=== PATIENT | female | born 1945 | race Caucasian/White ===

== ENCOUNTER 2016-09-30 07:52 | Inpatient (IN) | payer OTHER, MEDICARE ==
--- NOTE | 2016-09-27 10:18 | MH ---
cc: CAROLE SANTA MD, ARJUN D. MD DATE OF ADMISSION: 09/30/[address]-guided right upper lobe lung mass biopsy. HISTORY OF PRESENT ILLNESS Ms. Valle is a pleasant 71-year-old female who was found to have a right upper lobe lung density. She had a biopsy done at [facility] which showed lymphoid aggregate. The patient had a repeat CAT scan and a PET scan done on 09/07/2016 which shows intense increased activity in the right upper lobe mass characteristic of malignancy. She also has equivocal adenopathy in the right hilum. No distant metastatic disease. She has no fever or chills. No chest pain. No cough or sputum production. PAST MEDICAL HISTORY 1. Hypertension. 2. Cataract surgery. 3. Strabismus surgery. 4. Tonsillectomy. MEDICATIONS 1. Atenolol. 2. Lisinopril. 3. Lipitor. 4. Multivitamin. ALLERGIES She is allergic to PENICILLIN. SOCIAL HISTORY She has a 50 year history of smoking a half pack to one pack a day, which she recently quit. She drinks socially. 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 She is , lives alone. FAMILY HISTORY She has two adopted children. She has one brother with emphysema. Mother with emphysema. REVIEW OF SYSTEMS She has lost some weight. No hemoptysis. No DVT or pulmonary embolism. PHYSICAL EXAMINATION GENERAL: An elderly female not in acute distress. VITAL SIGNS: Blood pressure 130/72, heart rate 79, respirations 16 Oxygen saturation 96%. HEENT: Unremarkable. NECK: Supple. JVP not raised. CHEST: Equal bilaterally. No rhonchi. CARDIOVASCULAR: S1, S2 normal. ABDOMEN: Flat. EXTREMITIES: No edema. IMPRESSION 1. Right upper lobe 2.5 cm spiculated density with intense hypermetabolic activity seen on PET scan concerning for malignancy. 2. COPD. 3. Hypertension. 4. Hyperlipidemia. PLAN I discussed with the patient and her daughter she will need CT-guided lung biopsy. I explained the procedure and the complications including complication of anesthesia, pneumothorax requiring chest tube, bleeding complication, injury to the blood vessels, lungs and nerves, arrhythmia, hypoxia and nondiagnostic biopsy. She understood and wanted to proceed. She will be scheduled for CT-guided biopsy at [facility] and it will be sent for pathology, routine culture, AFB and fungal cultures. Follow-up in 3 weeks. MD ROBERT Braun/BT /11:01 PM /10:17 AM VIRAJ
[2016-09-30] VITALS (14 sets, daily range): BP systolic 105–171; BP diastolic 57–95; PULSE 56–70; RESP 18–20; TEMP 97.9–98.1; O2SAT 93–100
[~2016-09-30] VITALS: Ht 160 cm; Wt 51.0 kg
[~2016-09-30 07:52] MED LIST: ALEN1TAB48 PO; ATEN25TA PO; ATOR40TA16 PO; CALCTAB19 PO; LISI-519 PO; MULT-135 PO; MULTTAB26
[2016-09-30] MEDS ORDERED: SODIUM CHLOR 0.9% 1000 ML IV SCH (08:45)
[2016-09-30 09:04] LABS: PROTHROMBIN TIME - PATIENT 10.7 SEC (9.8-11.6)
[2016-09-30] MEDS ORDERED: LIDOCAINE 1%/EPINEPHrine 1:100,000 SOLN 20 ML VIAL ONE (09:10)
[2016-09-30] MEDS ORDERED: MIDAZOLAM HCL 5 MG/5 ML VIAL ONE (09:50)
[2016-09-30] MEDS ORDERED: fentaNYL CITRATE 250 MCG/5 ML AMP ONE (09:50)
--- NOTE | 2016-09-30 11:51 | RADRPT ---
EXAM DATE/TIME: 09/30/2016 10:04 [facility] COMPARISON: CT NEEDLE BIOPSY LUNG, RIGHT, July 08, 2016, 10:23. INDICATIONS : Right upper lung mass. SEDATION TIME: 30 minutes BIOPSY SITE: Right upper lung. MEDICATION(S): 1.) 2 mg midazolam (Versed) IV 2.) 100 mcg fentanyl (Sublimaze) IV DEVICE(S): 1.) 20 gauge Temno core biopsy needle 2.) 18 gauge Winter blunt needle MEDICAL HISTORY : Hypertension. Chronic obstructive pulmonary disease. SURGICAL HISTORY : Tonsillectomy. ENCOUNTER: Initial ACUITY: 1 day PAIN SCORE: 0/10 LOCATION: Left chest A total of four core specimen(s) were obtained and sent to the laboratory for pathologic evaluation. PROCEDURE: 1. CT guided lung biopsy. 2. Conscious sedation with continuous EKG and oximetry monitoring. 3. EKG and oximetry remained stable throughout the procedure. Prior to the procedure informed consent was obtained. Any appropriate prior imaging studies were rev iewed. The site was prepped in a sterile fashion. Full sterile technique was used, including cap, mask, martha rile gloves and gown and a large sterile sheet. Hand hygiene and 2% chlorhexidine and/or betadine/al cohol prep was utilized per protocol for cutaneous antisepsis. The skin and subcutaneous tissues wer e infiltrated with local anesthetic solution. With CT guidance the right upper lobe spiculated nodule was localized. Biopsy was performed using the prescribed needle as above. Adequate hemostasis was obtained with compression at the puncture site. Follow-up CT scan reveals no pneumothorax. There is intrapulmonary hemorrhage posterior to the nodule . Conscious sedation was performed with the prescribed dosages and duration as above. The patient arturo ated the procedure well and there were no complications. EKG and oximetry remained stable throughout the procedure. The patient was sent to Radiology Outpatient Unit in stable condition. CONCLUSION: Uncomplicated CT guided biopsy of the right upper lobe pulmonary nodule. Chava Hoang MD on September 30, 2016 at 11:48 Board Certified Radiologist. This report was verified electronically.
--- NOTE | 2016-09-30 12:00 | RADRPT ---
EXAM DATE/TIME: 09/30/2016 11:29 [facility] COMPARISON: CHEST EXPIRATION ONLY, July 08, 2016, 13:57. INDICATIONS : S/p lung bx MEDICAL HISTORY : Emphysema. SURGICAL HISTORY : biopsy 07/21 ENCOUNTER: Initial ACUITY: 1 day PAIN SCORE: 0/10 LOCATION: Bilateral chest FINDINGS: There is a questionable tiny right pneumothorax following right upper lobe lung nodule biopsy. The ri ght upper lobe nodule remains visualized. No other acute finding is seen. CONCLUSION: Questionable tiny right apical pneumothorax. Followup chest x-ray will be performed. Patient should r emain n.p.o. until the next chest x-ray was obtained. Chava Hoang MD on September 30, 2016 at 11:57 Board Certified Radiologist. This report was verified electronically.
--- NOTE | 2016-09-30 14:26 | RADRPT ---
EXAM DATE/TIME: 09/30/2016 13:15 [facility] COMPARISON: CHEST EXPIRATION ONLY, September 30, 2016, 11:29. INDICATIONS : Post needle biopsy right lung, evaluate for pneumothorax MEDICAL HISTORY : Chronic obstructive pulmonary disease. right upper lobe mass SURGICAL HISTORY : Tonsillectomy. ENCOUNTER: Subsequent ACUITY: 1 day PAIN SCORE: 0/10 LOCATION: Right chest FINDINGS: AP portable upright view of the chest in expiration demonstrates a moderate-sized right-sided pneumot horax. The imaged portion of the lung again demonstrates a spiculated mass within the right upper jose armando g otherwise stable emphysematous change. Heart size is normal. CONCLUSION: Moderate-sized right apical pneumothorax. Spiculated mass within the right upper lung consistent with carcinoma. Rosaura Parnell MD on September 30, 2016 at 14:22 Board Certified Radiologist. This report was verified electronically.
--- NOTE | 2016-09-30 15:24 | HHI.HP ---
HPI Service [facility] Hospitalists Primary Care Physician Stephan Wilson MD Admission Diagnosis Chief Complaint: lung mass Travel History International Travel<30 Days: No Contact w/Intl Traveler <30 Da: No Traveled to Known Affected Are: No History of Present Illness Pt is 71 yr with 50 yrs 1/2-1 ppd tobacco and rul 2.5 cm spiculated mass. 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 that bx showed lymhoid aggregate. pt admitted at that time for Ptx and chest tube. her pet scan was positive and pt sent back in for repeat lung mass bx. She has another Ptx and getting a chest tube.. Review of Systems Other weight loss right chest mass s/p bx and CT Past Family Social History Past Medical History htn hyperlipidemia 2.5cm right lung spic. mass cataract surgery Reported Medications Reported Meds & Active Scripts Active Reported Lisinopril 5 Mg Tab 5 Mg PO BID Alendronate (Alendronate Sodium) 70 Mg Tab 70 Mg PO Q7D Atorvastatin (Atorvastatin Calcium) 40 Mg Tab 40 Mg PO HS Multi Vitamin (Multiple Vitamin) 1 Tab Tab 1 Tab PO DAILY Calcium 600+D (Calcium Carbonate-Vitamin D) 600-200 Mg-Unit Tab 2 Tab PO BID Atenolol 25 Mg Tab 25 Mg PO DAILY Allergies: Coded Allergies: Penicillin (Verified Allergy, Severe, Hives, 09/30/16) Family History nc Social History social etoh 50yr 1/2-1ppd tob Physical Exam Vital Signs Vital Signs Date Time Temp Pulse Resp B/P Pulse Ox O2 Delivery O2 Flow Rate FiO2 09/30/16 14:51 63 18 135/68 95 09/30/16 14:00 70 18 132/65 97 09/30/16 13:00 63 18 107/61 93 09/30/16 12:30 62 18 108/57 94 09/30/16 12:00 60 18 115/65 94 09/30/16 11:30 59 18 108/58 94 09/30/16 11:00 61 18 105/59 97 09/30/16 10:45 97.9 56 18 114/60 96 09/30/16 08:19 Room Air 09/30/16 08:15 97.9 65 20 160/83 100 Physical Exam GENERAL: This is a well-nourished, well-developed patient, in no apparent distress. SKIN: No rashes, ecchymoses or lesions. Cool and dry. HEAD: Atraumatic. Normocephalic. No temporal or scalp tenderness. EYES: Pupils equal round and reactive. Extraocular motions intact. No scleral icterus. No injection or drainage. ENT: Nose without bleeding, purulent drainage or septal hematoma. Throat without erythema, tonsillar hypertrophy or exudate. Uvula midline. Airway patent. NECK: Trachea midline. No JVD or lymphadenopathy. Supple, nontender, no meningeal signs. CARDIOVASCULAR: Regular rate and rhythm without murmurs, gallops, or rubs. RESPIRATORY: Clear to auscultation. Breath sounds equal bilaterally. No wheezes , rales, or rhonchi. GASTROINTESTINAL: Abdomen soft, non-tender, nondistended. No hepato-splenomegaly , or palpable masses. No guarding. MUSCULOSKELETAL: Extremities without clubbing, cyanosis, or edema. No joint tenderness, effusion, or edema noted. No calf tenderness. Negative Homans sign bilaterally. NEUROLOGICAL: Awake and alert. Cranial nerves II through XII intact. Motor and sensory grossly within normal limits. Five out of 5 muscle strength in all muscle groups. Normal speech. Laboratory Laboratory Tests Test 09/30/16 08:30 Prothrombin Time 10.7 Prothromb Time International 1.0 Ratio Assessment and Plan Problem List: (1) Lung mass Status: Acute Plan: Pt admitted on 07/08 for right lung mass bx. 2.5cm spiculated and ptx/ chest tube That bx showed lymphoid aggregate. subsequent Pet scan positive repeat mass bx today with right ptx and chest tube insertion. she is smoker chest tube per IR pulmonary following dvt prophylaxis PT. d/c once chest tube removed. resume home meds. (2) Pneumothorax Status: Acute Plan: see above (3) Hypertension Status: Chronic Plan: home meds as tolerated (4) Tobacco abuse Status: Chronic Physician Certification 2 Midnight Certification Type: Admission for Inpatient Services Order for Inpatient Services 2 The services are ordered in accordance with Medicare regulations or non- Medicare payer requirements, as applicable. In the case of services not specified as inpatient-only, they are appropriately provided as inpatient services in accordance with the 2-midnight benchmark. Estimated LOS (days): 2 2 days is the estimated time the patient will need to remain in the hospital, assuming treatment plan goals are met and no additional complications. Post-Hospital Plan: Home Mauricio Garcia MD Sep 30, 2016 15:24 Mauricio Garcia MD Sep 30, 2016 15:24
[2016-09-30] MEDS ORDERED: MIDAZOLAM HCL 2 MG/2 ML VIAL ONE (15:26)
--- NOTE | 2016-09-30 16:25 | PD.RAD ---
Post Procedure Progress Note Pre Procedure Diagnosis: (1) Lung mass (2) Pneumothorax Post Procedure Diagnosis: (1) Lung mass (2) Pneumothorax Procedure Date: Sep 30, 2016 Supervising Radiologist: Santhosh Kendall Proceduralist/Assist: Karthik Coulter RT(R), RT Candace(R)() Anesthesia: Local, Analgesia, Conscious Sedation Plan of Activity Patient to Unit: ROPU Patient Condition: Good See PACS Report for procedural detail/treatment Drainage Procedure Procedure 1 Imaging Guidance: Fluoroscopy Side: Right Procedure Type: Chest Tube Non-Tunneled Procedure: Placement Khmer: 10 Drainage: Pleurovac (40 cm) Santhosh Kendall MD Sep 30, 2016 16:24
[2016-09-30] MEDS: oxyCODONE/ACETAMINOPHEN 5 MG/325 MG TAB PO PRN ×2 (17:01→21:15)
--- NOTE | 2016-09-30 17:04 | RADRPT ---
EXAM DATE/TIME: 09/30/2016 16:21 [facility] COMPARISON: CHEST EXPIRATION ONLY, September 30, 2016, 13:15. INDICATIONS : Evaluate lungs for pneumothorax. MEDICAL HISTORY : Lung Mass SURGICAL HISTORY : Chest Tube ENCOUNTER: Initial ACUITY: 1 day PAIN SCORE: 6/10 LOCATION: chest FINDINGS: There is a new right-sided chest tube the tube was in excellent position. There is complete reinflati on of the right lung. The patient's known right lung mass is again identified. The heart is mildly enlarged. There are chronic interstitial changes within the pulmonary parenchyma and COPD. CONCLUSION: 1. Right chest tube in good position. Complete resolution of the pneumothorax. Gallo Rangel MD on September 30, 2016 at 17:02 Board Certified Radiologist. This report was verified electronically.
[2016-09-30] MEDS ORDERED: ATORVASTATIN 40 MG TAB PO SCH (21:00)
[2016-09-30] MEDS: CALCIUM/VITAMIN D 250 MG/125 U TAB PO SCH (21:05)
[2016-09-30] MEDS: LISINOPRIL 5 MG TAB PO SCH (21:06)
[2016-10-01] VITALS (7 sets, daily range): BP systolic 95–124; BP diastolic 50–64; PULSE 52–68; RESP 12–20; TEMP 97.5–97.9; O2SAT 91–95
--- NOTE | 2016-10-01 07:09 | RADRPT ---
EXAM DATE/TIME: 10/01/2016 06:36 [facility] COMPARISON: CHEST EXPIRATION ONLY, September 30, 2016, 16:21. INDICATIONS : Evaluate pneumothorax and chest tube, no pain, no shortness of breath at this time MEDICAL HISTORY : lung mass, chest tube SURGICAL HISTORY : None. ENCOUNTER: Subsequent ACUITY: 2 days PAIN SCORE: 1/10 LOCATION: Bilateral chest FINDINGS: Portable AP upright expiratory view of the chest demonstrates no pneumothorax. Right chest tube remai ns present. The recently biopsied nodule in the right upper lobe remains visualized. There otherwise has been no significant change. CONCLUSION: No pneumothorax is visualized. Chava Hoang MD on October 01, 2016 at 7:07 Board Certified Radiologist. This report was verified electronically.
[2016-10-01] MEDS: oxyCODONE/ACETAMINOPHEN 5 MG/325 MG TAB PO PRN (07:12)
[2016-10-01] MEDS: LISINOPRIL 5 MG TAB PO SCH (08:45)
[2016-10-01] MEDS: CALCIUM/VITAMIN D 250 MG/125 U TAB PO SCH (08:46)
[2016-10-01] MEDS ORDERED: ATENOLOL 25 MG TAB PO SCH (09:00)
[2016-10-01] MEDS ORDERED: MULTIVITAMIN TAB PO SCH (09:00)
--- NOTE | 2016-10-01 10:30 | HHI.PR ---
Subjective Remarks no sob. pain controlled Objective Vitals heart reg lung cta. right base diminished bs ext right ct 40cm/h20 ext no edema Vital Signs Date Time Temp Pulse Resp B/P Pulse Ox O2 Delivery O2 Flow Rate FiO2 10/01/16 08:00 97.5 56 12 124/64 93 10/01/16 04:00 97.9 52 20 100/51 94 10/01/16 00:00 97.9 53 20 95/50 93 09/30/16 23:43 16 09/30/16 21:15 Nasal Cannula 09/30/16 20:00 98.0 60 20 126/71 93 09/30/16 17:40 67 20 138/67 95 09/30/16 17:10 63 20 141/64 94 09/30/16 16:40 67 20 171/72 94 09/30/16 16:25 98.1 56 20 142/95 94 09/30/16 14:51 63 18 135/68 95 09/30/16 14:00 70 18 132/65 97 09/30/16 13:00 63 18 107/61 93 09/30/16 12:30 62 18 108/57 94 09/30/16 12:00 60 18 115/65 94 09/30/16 11:30 59 18 108/58 94 09/30/16 11:00 61 18 105/59 97 09/30/16 10:45 97.9 56 18 114/60 96 09/30/16 09/30/16 10/01/16 15:00 23:00 07:00 Intake Total 360 ml 0 ml Output Total 0 ml 300 ml Balance 360 ml -300 ml Intake Oral 360 ml 0 ml IV Total 0 ml 0 ml Output Urine Total 300 ml Chest Tube Drainage Total 0 ml 0 ml # Voids 1 A/P Problem List: (1) Lung mass Status: Acute Plan: Pt admitted on 07/08 for right lung mass bx. 2.5cm spiculated and ptx/ chest tube That bx showed lymphoid aggregate. subsequent Pet scan positive repeat mass bx today with right ptx and chest tube insertion. she is smoker chest tube per IR. place to seal and remove as able today by IR d/c home later today if able to get ct out dvt prophylaxis PT. (2) Pneumothorax Status: Acute Plan: see above (3) Hypertension Status: Chronic Plan: home meds as tolerated (4) Tobacco abuse Status: Chronic Mauricio Garcia MD Oct 01, 2016 10:30
--- NOTE | 2016-10-01 16:25 | HHI.DCPOC ---
Discharge Care Plan Diagnosis: (1) Pneumothorax (2) Lung mass Goals to Promote Your Health * To prevent worsening of your condition and complications * To maintain your health at the optimal level Directions to Meet Your Goals Take your medications as prescribed Follow your dietary instruction Follow activity as directed Keep your appointments as scheduled Take your immunizations and boosters as scheduled If your symptoms worsen call your PCP, if no PCP go to Urgent Care Center or Emergency Room Smoking is Dangerous to Your Health. Avoid second hand smoke Call the 24-hour hour crisis hotline for domestic abuse at Mauricio Garcia MD Oct 01, 2016 16:25
--- NOTE | 2016-10-01 17:24 | RADRPT ---
EXAM DATE/TIME: 10/01/2016 16:41 [facility] COMPARISON: CHEST EXPIRATION ONLY, October 01, 2016, 15:21. INDICATIONS : Post chest tube removal. MEDICAL HISTORY : None. SURGICAL HISTORY : None. ENCOUNTER: Initial ACUITY: 1 day PAIN SCORE: 0/10 LOCATION: Bilateral chest FINDINGS: The right-sided chest tube has been removed. No significant pneumothorax is seen. The patient's right upper lung mass is again identified. There are diffuse chronic interstitial changes. CONCLUSION: 1. No significant pneumothorax following removal of the right chest tube. Gallo Rangel MD on October 01, 2016 at 17:22 Board Certified Radiologist. This report was verified electronically.
--- NOTE | 2016-10-01 17:24 | RADRPT ---
EXAM DATE/TIME: 10/01/2016 15:21 [facility] COMPARISON: CHEST EXPIRATION ONLY, October 01, 2016, 6:36. INDICATIONS : Evaluate for pneumothorax. Post chest tube placement on 09/30/16. MEDICAL HISTORY : Lung mass. Chest tube. SURGICAL HISTORY : None. ENCOUNTER: Subsequent ACUITY: 1 day PAIN SCORE: 0/10 LOCATION: chest FINDINGS: There is a right-sided chest tube in place. There is no pneumothorax. The patient's right apical lung mass is again identified. There are diffuse chronic interstitial changes. The heart is normal in siz e. The osseous structures are intact. CONCLUSION: No pneumothorax identified. Right chest tube in good position. Gallo Rangel MD on October 01, 2016 at 17:23 Board Certified Radiologist. This report was verified electronically.
--- NOTE | 2016-10-01 17:44 | RADRPT ---
EXAM DATE/TIME: 10/01/2016 00:00 [facility] COMPARISON: No previous studies available for comparison. INDICATIONS : DEVICE(S): 1.) PROCEDURE : Chest tube removal. Using aseptic technique the previously placed chest tube was easily removed in one piece and Vaseline gauze and sterile dressing was applied. Chest radiograph is to be obtained. CONCLUSION: Uncomplicated chest tube removal. Reza Dumont Jr., MD on October 01, 2016 at 17:42 Board Certified Radiologist. This report was verified electronically.
--- NOTE | 2016-10-05 14:59 | RADRPT ---
EXAM DATE/TIME: 09/30/2016 15:37 [facility] COMPARISON: CHEST TUBE PLACEMENT, RIGHT, July 08, 2016, 14:41. INDICATIONS : Patient presents with right side pneumothorax in need of chest tube placement. MEDICAL HISTORY : HTN COPD SURGICAL HISTORY : Cataract sx Tonsils ENCOUNTER: Initial ACUITY: 1 day PAIN SCORE: 0/10 LOCATION: N/A FLUORO TIME: 1.2 minutes SEDATION TIME: 15 minutes MEDICATION(S): 1.) 1.5 mg IV 2.) 1 mcg IV DEVICE(S): 1.) 10 [place] non-locking catheter 30cm thania PROCEDURE : 1. Fluoroscopically guided chest tube placement. 2. Conscious sedation with continuous EKG and oximetry monitoring. The risks, benefits and alternatives to the procedure were explained and verbal and written consent w as obtained. The site was prepped in sterile fashion. Full sterile technique was used, including ca p, mask, sterile gloves and gown and a large sterile sheet. Hand hygiene and 2% chlorhexidine and/or betadine/alcohol prep was utilized per protocol for cutaneous antisepsis. The skin and subcutaneous tissues were infiltrated with local anesthetic solution. With fluoroscopic guidance the chest was punctured between the first and second interspace and the pr escribed catheter was placed in the lung apex. Wall suction was applied. Post procedure images demon strate satisfactory position of the tube. The catheter was sutured in place and a Percu-Stay was david lied. Conscious sedation was performed with the prescribed dosages and duration as above. The patient arturo ated the procedure well and there were no complications. EKG and oximetry remained stable throughout the procedure. The patient was sent to post anesthesia recovery in stable condition. CONCLUSION: Uncomplicated chest tube placement as above. Santhosh Kendall MD on October 05, 2016 at 14:56 Board Certified Radiologist. This report was verified electronically.
== END 2016-10-01 18:28 | disposition home or self-care (01) | DRG 181 ==
LOC: HRAD 07:52 → HRIP 07:57 → EDSTATUS 08:00 → N07B 15:26 → HRAD 19:01
PROVIDERS: ADMIT Specialist; ATTEND Specialist
PROC: 0W9930Z Drainage of Right Pleural Cavity with Drainage Device, Percutaneous Approach (ICD-10-PCS; principal; 2016-09-30)
PROC: 0WP9X0Z Removal of Drainage Device from Right Pleural Cavity, External Approach (ICD-10-PCS; 2016-09-30)
DX: C34.11 Malignant neoplasm of upper lobe, right bronchus or lung (principal); J95.811 Postprocedural pneumothorax; J44.9 Chronic obstructive pulmonary disease, unspecified; I10 Essential (primary) hypertension; E78.5 Hyperlipidemia, unspecified; F17.200 Nicotine dependence, unspecified, uncomplicated
CPT/HCPCS: 32405; 32557; 71010; 77012; 85610; 88305; 99152; C1729; C1769; J2250; J3010; J7030

== ENCOUNTER 2016-10-25 14:24 | Inpatient (IN) | payer OTHER, MEDICARE ==
[~2016-10-25] VITALS: Ht 160 cm; Wt 68.5 kg
[~2016-10-25 14:24] MED LIST changes: -MULTTAB26
[2016-10-26] MEDS ORDERED: AMLO5TAB2 PO (11:30)
[2016-10-26] MEDS ORDERED: NICO2LOZ BUCCAL (11:30)
[2016-10-26] MEDS ORDERED: ALPR0.5T3 PO (11:30)
[2016-11-02] VITALS (8 sets, daily range): BP systolic 83–119; BP diastolic 46–69; PULSE 68–87; RESP 14–20; TEMP 97.4–97.8; O2SAT 94–99
[2016-11-02] MEDS ORDERED: METOPROLOL TARTRATE 25 MG TAB PO PRN (06:00)
[2016-11-02] MEDS ORDERED: SODIUM CHLORID 0.9% 500 ML IV SCH (06:00)
[2016-11-02] MEDS ORDERED: INSULIN HUMAN REGULAR 1,000 UNITS/10 ML VIAL SQ PRN (06:00)
[2016-11-02] MEDS ORDERED: BACT400T PO (06:24)
[2016-11-02] MEDS: LACTATED RINGER'S 1000 ML IV SCH (06:28)
[2016-11-02 06:57] LABS: BLOOD, URINE NEG (NEG); COMMENT (UR) CULTURE INDICATED; CULTURE IF INDICATED CULTURE INDICATED; GLUCOSE,URINE NEG (NEG); HYALINE CAST, URINE 4 /lpf (RARE); KETONE, URINE NEG (NEG); MUCUS URINE FEW /lpf (OCC); NITRITE,URINE NEG (NEG); SQUAMOUS EPITHELIAL CELL URINE 1 /hpf (0-5); URINE COLOR YELLOW (YELLW/STRAW)
[2016-11-02] MEDS ORDERED: BUPIVACAINE LIPOSO PF 1.3% INJ 20 ML, DEXAMETHASONE INJ 4 MG in SODIUM CHLORIDE 0.9% IN... PERIART SCH (07:15)
[2016-11-02] MEDS ORDERED: DEXAMETHASONE SOD PHOS 4 MG/ML VIAL ONE (07:15)
[2016-11-02] MEDS ORDERED: SODIUM CHLOR 0.9% 250 ML INJ 250 ML ONE (07:34)
[2016-11-02] MEDS ORDERED: VANCOMYCIN HCL 1000 MG VIAL ONE (07:34)
[2016-11-02] MEDS ORDERED: ePHEDrine/NS 25 MG/5 ML SYR IV ONE (12:00)
[2016-11-02] MEDS ORDERED: PHENYLEPH/NS 1000 MCG/10 ML SYR IV ONE (12:09)
[2016-11-02] MEDS ORDERED: LACTATED RINGER'S 1000 ML INJ 1,000 ML IV ONE (12:09)
[2016-11-02] MEDS ORDERED: NORMOSOL R INJ 1,000 ML IV ONE (12:09)
[2016-11-02] MEDS ORDERED: NEOSTIGMINE 3 MG/3 ML SYR IV ONE (12:09)
[2016-11-02] MEDS ORDERED: PROPOFOL 200 MG/20 ML AMP IV ONE (12:09)
[2016-11-02] MEDS ORDERED: ONDANSETRON HCL 4 MG/2 ML VIAL IV PUSH ONE (12:09)
[2016-11-02] MEDS ORDERED: SODIUM CHLORID 0.9% 500 ML INJ 500 ML IV ONE (12:09)
[2016-11-02] MEDS ORDERED: fentaNYL CITRATE 250 MCG/5 ML AMP ONE ×2 (13:01→14:11)
[2016-11-02] MEDS ORDERED: Post-op Orders (for Pharmacy) MISC OTHER ONE (13:45)
[2016-11-02] MEDS ORDERED: ACETAMINOPHEN 325 MG TAB PO PRN (13:45)
[2016-11-02] MEDS ORDERED: ONDANSETRON HCL 4 MG/2 ML VIAL IV PUSH PRN (13:45)
[2016-11-02] MEDS ORDERED: MAGNESIUM HYDROXIDE SUSP 30 ML CUP PO PRN (13:45)
[2016-11-02] MEDS ORDERED: RESP: ALBUTEROL 2.5 MG/3 ML NEB (PRN) NEB (13:45)
[2016-11-02] MEDS ORDERED: NALOXONE HCL 0.4 MG/ML AMP IV PRN (13:45)
[2016-11-02] MEDS ORDERED: MORPHINE SULFATE 30 MG/30 ML PCA IV SCH (13:45)
[2016-11-02] MEDS ORDERED: diphenhydrAMINE HCL 50 MG/ML VIAL IV PRN (13:45)
[2016-11-02] MEDS ORDERED: ACETAMINOPHEN/HYDROcodone 325 MG/5 MG TAB PO PRN (13:45)
[2016-11-02] MEDS ORDERED: DO NOT ADM ANY ANTICOAGULANT DRUGS XX PRN (14:00)
[2016-11-02] MEDS: PCA - TOTAL MG MORPHINE DELIVERED PER SHIFT SCH ×2 (14:00→22:00)
--- NOTE | 2016-11-02 14:09 | PD.OP ---
cc: Tobi Petersen MD; Stephan Wilson MD; Deejay Jaramillo MD; Vanessa Cottrell MD Operative Report Date of Surgery: Nov 02, 2016 Preoperative Diagnosis: Postoperative Diagnosis: Procedure: 1. Robotic Right Upper Lobectomy 2. Mediastinal Lymph Node Dissection. 3. Intercostal Nerve Block . Surgeon: Vanessa Cottrell Mechanical Drawing Teacher(s): Apolinar Guadalupe Operation and Findings: PREOPERATIVE DIAGNOSIS 1. Right Upper Lobe Lung Cancer 2. COPD POSTOPERATIVE DIAGNOSIS same PROCEDURES 1. Robotic Right Upper Lobectomy 2. Mediastinal Lymph Node Dissection. 3. Intercostal Nerve Block SURGEON Vanessa Cottrell MD COOK CHILL TECHNICIAN HARSHAD Mcfadden RNFA ANESTHESIA General endotracheal. METER MAINTENANCE PERSON TAINA Harris MD OPERATIVE TIME Please see record. COMPLICATIONS None. INDICATION FOR PROCEDURE The patient is a 71 yo lady with lung cancer. DESCRIPTION OF PROCEDURE The patient was brought to the operating suite and placed in supine position. Following satisfactory induction of general endotracheal anesthesia, she was placed in the left lateral decubitus position. The right chest was then prepped and draped in the usual sterile fashion. Under direct vision, camera was introduced in the 8th ICS and insufflation was begun into the chest . Instrument arm 1, 2, and 3 were placed. Lesion was identified. The inferior pulmonary ligament was divided. The pulmonary arterial supply to the right upper lobe was identified, dissected free and divided as was the pulmonary venous supply. The bronchus was then dissected free, clamped and the remaining lung was insufflated without any difficulty. The fissure was incomplete and was completed with a ARIE stapler. Lymph node dissections of level 4, 7, 10 & 11 were performed along with the course of this removal. Some of these were retained with the specimen. Specimen was bagged and removed from the chest. A 24 -[place]ore[place] Tyrese drain was placed. Intercostal nerve block was performed at the level of the incision and 3 rib spaces above and below using Exparel with Decadron solution. Her lung parenchyma was very friable and an area of air-leak at the hilum was repaired with a walter-strip re-enforced stapler with resultant stop in the leak. Wounds were closed with 2-0, 3-0, and 4-0 Monocryl. The patient tolerated the procedure well and postoperatively went to recovery in stable condition. Vanessa Cottrell MD Nov 02, 2016 14:09
[2016-11-02] MEDS ORDERED: MIDAZOLAM HCL 2 MG/2 ML VIAL ONE (14:11)
--- NOTE | 2016-11-02 14:52 | RADRPT ---
EXAM DATE/TIME: 11/02/2016 14:15 [facility] COMPARISON: No previous studies available for comparison. INDICATIONS : Thoracotomy. MEDICAL HISTORY : Chronic obstructive pulmonary disease. right upper lobe mass SURGICAL HISTORY : Tonsillectomy. ENCOUNTER: Subsequent ACUITY: 3 days PAIN SCORE: 8/10 LOCATION: Bilateral chest upper back. FINDINGS: Single view of the chest demonstrates there is a moderate size right pneumothorax present. Chest tub e overlies the right chest. The left lung is clear. Heart and mediastinum are unremarkable. CONCLUSION: Moderate size right pneumothorax with a right chest tube in place. Kvng Borjas MD on November 02, 2016 at 14:47 Board Certified Radiologist. This report was verified electronically.
[2016-11-02] MEDS ORDERED: CALCIUM/VITAMIN D 250 MG/125 U TAB PO SCH (21:00)
[2016-11-02] MEDS: DOCUSATE CALCIUM 240 MG CAP PO SCH (22:13)
[2016-11-02] MEDS: PANTOPRAZOLE SOD 40 MG DELAYED RELEASE TAB PO SCH (22:13)
[2016-11-02] MEDS: ATORVASTATIN 40 MG TAB PO SCH (22:13)
[2016-11-02] MEDS: SODIUM CHLORIDE 0.9% FLUSH 5 ML FLUSH IV FLUSH SCH (22:14)
[2016-11-02] MEDS: VANCOMYCIN INJ 1,000 MG in SODIUM CHLOR 0.9% 250 ML INJ 250 ML IV SCH (22:15)
[2016-11-02] MEDS: KETOROLAC TROMETHAMINE 30 MG/ML (IVP) VIAL IV PUSH SCH (22:28)
[2016-11-02] MEDS: CALCIUM/VITAMIN D 250 MG/125 U TAB PO SCH (22:29)
[2016-11-03] VITALS (27 sets, daily range): BP systolic 86–145; BP diastolic 48–65; PULSE 65–92; RESP 18–20; TEMP 97.4–99.6; O2SAT 92–97
[2016-11-03] MEDS: KETOROLAC TROMETHAMINE 30 MG/ML (IVP) VIAL IV PUSH SCH ×2 (02:15→07:11)
[2016-11-03] MEDS: SODIUM CHLORIDE 0.9% FLUSH 5 ML FLUSH IV FLUSH PRN (02:15)
[2016-11-03] MEDS: ACETAMINOPHEN 1000 MG/100 ML VIAL IV SCH ×2 (02:16→07:10)
[2016-11-03] MEDS: RESP: ALBUTEROL 2.5 MG/3 ML NEB (SCH) NEB ×4 (04:53→21:07)
[2016-11-03] MEDS: PCA - TOTAL MG MORPHINE DELIVERED PER SHIFT SCH (05:58)
[2016-11-03] MEDS: ACETAMINOPHEN/HYDROcodone 325 MG/5 MG TAB PO PRN ×5 (05:58→23:55)
[2016-11-03] MEDS: LACTATED RINGER'S 1000 ML IV SCH (05:59)
[2016-11-03 06:23] LABS: AUTOMATED NEUTROPHIL # 10.8 TH/MM3 (1.8-7.7); BASOPHIL % 0.1 % (0.0-2.0); HEMATOCRIT 28.2 % (35.0-46.0); HEMO FLAGS DIFF FINAL; LYMPH % 7.2 % (9.0-44.0); LYMPHOCYTE # 0.9 TH/MM3 (1.0-4.8); MEAN CELL VOLUME 92.8 FL (80.0-100.0); MEAN CORPUSCULAR HGB CONC 33.4 % (32.0-36.0); MONO % 8.5 % (0.0-8.0); NEUT % 84.2 % (16.0-70.0); PLATELET COUNT 224 TH/MM3 (150-450); RED BLOOD COUNT 3.04 MIL/MM3 (4.00-5.30); WHITE BLOOD COUNT 12.9 TH/MM3 (4.0-11.0)
--- NOTE | 2016-11-03 06:48 | RADRPT ---
EXAM DATE/TIME: 11/03/2016 05:44 [facility] COMPARISON: CHEST SINGLE AP, November 02, 2016, 14:15. INDICATIONS : Follow up thoracotomy. MEDICAL HISTORY : None. SURGICAL HISTORY : None. Thoracotomy ENCOUNTER: Subsequent ACUITY: 2 days PAIN SCORE: 7/10 LOCATION: Bilateral chest FINDINGS: There is a right-sided chest tube with a tiny right pneumothorax. Minimal subsegmental airspace disea se at the bases. No significant effusion. Heart size within normal limits. CONCLUSION: 1. Right side chest tube present with tiny right pneumothorax. Ishan Valero MD on November 03, 2016 at 6:44 Board Certified Radiologist. This report was verified electronically.
[2016-11-03 07:08] LABS: POTASSIUM 4.6 MEQ/L (3.5-5.1)
[2016-11-03] MEDS: SODIUM CHLORIDE 0.9% FLUSH 5 ML FLUSH IV FLUSH SCH ×2 (08:39→20:58)
[2016-11-03] MEDS: CALCIUM/VITAMIN D 250 MG/125 U TAB PO SCH ×2 (08:39→20:58)
[2016-11-03] MEDS: VANCOMYCIN INJ 1,000 MG in SODIUM CHLOR 0.9% 250 ML INJ 250 ML IV SCH (08:40)
--- NOTE | 2016-11-03 10:23 | PD.CAR.PN ---
CVT Progress Note Subjective/Hospital Course: 71/ female new findings of right upper lobe mass, found on routine CT chest , h/ o smoking and 9lb weight loss over past year. 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 HEAD: Normocephalic. EYES: No scleral icterus. No injection or drainage. NECK: Supple, trachea midline. No JVD or lymphadenopathy. CARDIOVASCULAR: Regular rate and rhythm without murmurs, gallops, or rubs. RESPIRATORY: diminished right lower lobe, incisions intact to right post chest wall chest tube to water seal , + air leak , drained 100cc/ drainage Breath sounds equal bilaterally. No accessory muscle use. GASTROINTESTINAL: Abdomen soft, non-tender, nondistended. MUSCULOSKELETAL: No cyanosis, or edema. BACK: Nontender without obvious deformity. No CVA tenderness. Vital Signs Date Time Temp Pulse Resp B/P Pulse Ox O2 Delivery O2 Flow Rate FiO2 11/03/16 09:25 20 11/03/16 09:24 18 11/03/16 08:00 98.0 82 93/55 94 11/03/16 07:35 92 Nasal Cannula 2.00 11/03/16 07:24 72 11/03/16 06:07 71 11/03/16 05:16 71 11/03/16 04:26 68 11/03/16 03:55 65 11/03/16 03:43 99.6 70 20 86/48 94 11/03/16 02:05 74 11/03/16 01:04 69 11/03/16 00:12 75 11/02/16 23:53 68 11/02/16 23:30 97.8 77 19 108/52 96 11/02/16 22:00 76 11/02/16 21:00 79 11/02/16 20:20 16 11/02/16 20:00 87 11/02/16 19:00 97.5 82 83/46 94 11/02/16 19:00 81 11/02/16 17:00 77 2/28/17 17:00 97.4 74 14 99/53 96 11/02/16 16:45 97.5 75 12 100/55 98 11/02/16 16:00 76 12 99/58 98 11/02/16 15:30 77 16 88/62 98 11/02/16 15:15 74 16 100/55 99 11/02/16 15:00 75 16 86/48 99 11/02/16 14:45 73 13 90/54 99 11/02/16 14:30 74 14 92/54 99 11/02/16 14:15 75 12 102/55 99 11/02/16 14:11 14 11/02/16 14:00 85 12 106/53 99 Nasal Cannula 2 11/02/16 13:57 97.4 82 10 98/60 99 Nasal Cannula 2 Labs: Laboratory Tests Test 11/03/16 05:54 White Blood Count 12.9 TH/MM3 (4.0-11.0) Red Blood Count 3.04 MIL/MM3 (4.00-5.30) Hemoglobin 9.4 GM/DL (11.6-15.3) Hematocrit 28.2 % (35.0-46.0) Mean Corpuscular Volume 92.8 FL (80.0-100.0) Mean Corpuscular Hemoglobin 31.0 PG (27.0-34.0) Mean Corpuscular Hemoglobin 33.4 % Concent (32.0-36.0) Red Cell Distribution Width 13.0 % (11.6-17.2) Platelet Count 224 TH/MM3 (150-450) Mean Platelet Volume 8.7 FL (7.0-11.0) Neutrophils (%) (Auto) 84.2 % (16.0-70.0) Lymphocytes (%) (Auto) 7.2 % (9.0-44.0) Monocytes (%) (Auto) 8.5 % (0.0-8.0) Eosinophils (%) (Auto) 0.0 % (0.0-4.0) Basophils (%) (Auto) 0.1 % (0.0-2.0) Neutrophils # (Auto) 10.8 TH/MM3 (1.8-7.7) Lymphocytes # (Auto) 0.9 TH/MM3 (1.0-4.8) Monocytes # (Auto) 1.1 TH/MM3 (0-0.9) Eosinophils # (Auto) 0.0 TH/MM3 (0-0.4) Basophils # (Auto) 0.0 TH/MM3 (0-0.2) CBC Comment DIFF FINAL Differential Comment Sodium Level 130 MEQ/L (136-145) Potassium Level 4.6 MEQ/L (3.5-5.1) Chloride Level 99 MEQ/L (98-107) Carbon Dioxide Level 23.0 MEQ/L (21.0-32.0) Anion Gap 8 MEQ/L (5-15) Blood Urea Nitrogen 31 MG/DL (7-18) Creatinine 1.39 MG/DL (0.50-1.00) Estimat Glomerular Filtration 37 ML/MIN (>89) Rate Random Glucose 126 MG/DL (74-106) Calcium Level 7.7 MG/DL (8.5-10.1) Result Diagram: 11/03/16 0554 11/03/16 0554 Telemetry: NSR (1) Hypertension (2) Tobacco abuse Plan: smoking cessation (3) Lung mass Plan: await path (4) Robotic Right Upper Lobectomy Plan: nebs, pain control, leave chest tube in Rosaura Dominguez Nov 03, 2016 10:22
[2016-11-03] MEDS ORDERED: KETOROLAC TROMETHAMINE 30 MG/ML (IVP) VIAL IV PUSH PRN (11:00)
[2016-11-03] MEDS: ALPRAZolam 0.5 MG TAB PO PRN (19:24)
[2016-11-03] MEDS: PANTOPRAZOLE SOD 40 MG DELAYED RELEASE TAB PO SCH (20:58)
[2016-11-03] MEDS: DOCUSATE SODIUM 100 MG CAP PO SCH (20:58)
[2016-11-03] MEDS: ATORVASTATIN 40 MG TAB PO SCH (20:59)
[2016-11-03] MEDS: DOCUSATE CALCIUM 240 MG CAP PO SCH (20:59)
[2016-11-04] VITALS (29 sets, daily range): BP systolic 102–119; BP diastolic 52–56; PULSE 67–100; RESP 16–20; TEMP 97.5–98.3; O2SAT 91–99
[2016-11-04] MEDS: ACETAMINOPHEN/HYDROcodone 325 MG/5 MG TAB PO PRN ×4 (03:49→20:06)
[2016-11-04] MEDS: RESP: ALBUTEROL 2.5 MG/3 ML NEB (SCH) NEB ×4 (04:42→20:42)
[2016-11-04] MEDS: LACTATED RINGER'S 1000 ML IV SCH (04:58)
--- NOTE | 2016-11-04 06:36 | RADRPT ---
EXAM DATE/TIME: 11/04/2016 04:44 [facility] COMPARISON: CHEST SINGLE AP, November 03, 2016, 5:44. INDICATIONS : Shortness of breath, possible pulmonary disease. MEDICAL HISTORY : None. SURGICAL HISTORY : Thoracotomy ENCOUNTER: Subsequent ACUITY: 3 days PAIN SCORE: 4/10 LOCATION: Bilateral chest FINDINGS: Right-sided chest tube present status post right thoracotomy. There is an air leak into the right [address] st wall with extensive subcutaneous emphysema now present, not present on November 03. Left lung remains relatively clear. Heart size normal. CONCLUSION: 1. Postoperative right thoracotomy. Right chest tube present. No significant pneumothorax. There is a n air leak into the right chest wall. Ishan Valero MD on November 04, 2016 at 6:31 Board Certified Radiologist. This report was verified electronically.
[2016-11-04] MEDS: POLYETHYLENE GLYCOL 17 GM PKG PO SCH (08:55)
[2016-11-04] MEDS: DOCUSATE SODIUM 100 MG CAP PO SCH ×2 (08:56→20:07)
[2016-11-04] MEDS: CALCIUM/VITAMIN D 250 MG/125 U TAB PO SCH ×2 (08:57→20:06)
--- NOTE | 2016-11-04 12:43 | PD.CAR.PN ---
CVT Progress Note CVT: POD #: 2 Subjective/Hospital Course: 71/ female new findings of right upper lobe mass, found on routine CT chest , h/ o smoking and 9lb weight loss over past year. 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 EYES: No scleral icterus. No injection or drainage. NECK: Supple, trachea midline. No JVD or lymphadenopathy. CARDIOVASCULAR: Regular rate and rhythm without murmurs, gallops, or rubs. RESPIRATORY: Breath sounds equal bilaterally. No accessory muscle use.diminished right lower lobe chest tube water seal/ drained 130cc/ 12 hrs / intermittent small air leak GASTROINTESTINAL: Abdomen soft, non-tender, nondistended. MUSCULOSKELETAL: No cyanosis, or edema. BACK: Nontender without obvious deformity. No CVA tenderness. Vital Signs Date Time Temp Pulse Resp B/P Pulse Ox O2 Delivery O2 Flow Rate FiO2 11/04/16 09:33 91 21 11/04/16 06:05 80 11/04/16 05:26 73 11/04/16 04:00 73 11/04/16 04:00 97.9 74 18 105/56 98 11/04/16 03:00 67 11/04/16 02:13 67 11/04/16 01:45 81 11/04/16 00:00 75 11/03/16 23:00 74 11/03/16 23:00 97.4 90 104/51 95 11/03/16 22:00 76 11/03/16 21:00 92 11/03/16 20:00 80 11/03/16 19:00 75 11/03/16 19:00 97.8 91 18 145/65 97 11/03/16 18:00 72 11/03/16 17:00 70 11/03/16 16:00 72 11/03/16 15:15 98.7 70 20 107/58 94 11/03/16 15:00 73 11/03/16 14:00 74 11/03/16 13:37 73 Result Diagram: 11/03/16 0554 11/03/16 0554 (1) Hypertension Plan: controlled (2) Tobacco abuse Plan: smoking cessation (3) Lung mass Plan: await path (4) Robotic Right Upper Lobectomy Plan: nebs, pain control, leave chest tube in (5) UTI (urinary tract infection) Plan: start levaquin, await sensitivity Rosaura Dominguez Nov 04, 2016 12:42
[2016-11-04] MEDS ORDERED: LEVOFLOXACIN 750 MG PREMIX INJ 150 ML IV SCH (14:00)
[2016-11-04] MEDS ORDERED: FUROSEMIDE 20 MG/2 ML VIAL IV PUSH ONE (14:00)
[2016-11-04] MEDS: SODIUM CHLORIDE 0.9% FLUSH 5 ML FLUSH IV FLUSH SCH ×2 (18:13→21:00)
[2016-11-04] MEDS: ALPRAZolam 0.5 MG TAB PO PRN (20:06)
[2016-11-04] MEDS: PANTOPRAZOLE SOD 40 MG DELAYED RELEASE TAB PO SCH (20:06)
[2016-11-04] MEDS: ATORVASTATIN 40 MG TAB PO SCH (20:06)
[2016-11-04] MEDS: DOCUSATE CALCIUM 240 MG CAP PO SCH (20:06)
[2016-11-05] VITALS (28 sets, daily range): BP systolic 104–112; BP diastolic 55–62; PULSE 81–103; RESP 17–22; TEMP 97.7–98.7; O2SAT 93–98
[2016-11-05] MEDS: RESP: ALBUTEROL 2.5 MG/3 ML NEB (SCH) NEB ×4 (03:33→21:09)
[2016-11-05] MEDS: ALPRAZolam 0.5 MG TAB PO PRN ×2 (03:43→22:46)
[2016-11-05 03:59] LABS: AUTOMATED NEUTROPHIL # 6.4 TH/MM3 (1.8-7.7); BASOPHIL % 0.3 % (0.0-2.0); EOSINOPHIL # 0.2 TH/MM3 (0-0.4); EOSINOPHIL % 1.8 % (0.0-4.0); HEMATOCRIT 27.9 % (35.0-46.0); HEMO FLAGS DIFF FINAL; LYMPHOCYTE # 1.7 TH/MM3 (1.0-4.8); MEAN CELL VOLUME 91.5 FL (80.0-100.0); MEAN CORPUSCULAR HEMOGLOBIN 31.9 PG (27.0-34.0); MEAN CORPUSCULAR HGB CONC 34.9 % (32.0-36.0); NEUT % 68.9 % (16.0-70.0); PLATELET COUNT 227 TH/MM3 (150-450); RED BLOOD COUNT 3.05 MIL/MM3 (4.00-5.30); RED CELL DISTRIBUTION WIDTH 13.1 % (11.6-17.2); WHITE BLOOD COUNT 9.3 TH/MM3 (4.0-11.0)
[2016-11-05 04:23] LABS: BICARBONATE 28.4 MEQ/L (21.0-32.0)
[2016-11-05] MEDS: LACTATED RINGER'S 1000 ML IV SCH (05:58)
--- NOTE | 2016-11-05 06:49 | RADRPT ---
EXAM DATE/TIME: 11/05/2016 04:59 [facility] COMPARISON: CHEST SINGLE AP, November 04, 2016, 4:44. INDICATIONS : Post thoracotomy. MEDICAL HISTORY : None. SURGICAL HISTORY : Thoracotomy. ENCOUNTER: Subsequent ACUITY: 4 - 6 days PAIN SCORE: Non-responsive. LOCATION: Bilateral chest FINDINGS: One right thoracostomy tube remains in place. Small apical pneumothorax is noted with modest centimet er separation of apical pleural layers. Fairly extensive subcutaneous emphysema persists. Left lung i s stable clear and well-expanded. Cardiac contours are unchanged. CONCLUSION: Small right apical pneumothorax Chava Carballo MD on November 05, 2016 at 6:46 Board Certified Radiologist. This report was verified electronically.
[2016-11-05] MEDS: POLYETHYLENE GLYCOL 17 GM PKG PO SCH (09:57)
[2016-11-05] MEDS: DOCUSATE SODIUM 100 MG CAP PO SCH ×2 (09:57→22:48)
[2016-11-05] MEDS: oxyCODONE/ACETAMINOPHEN 5 MG/325 MG TAB PO PRN ×4 (09:58→22:47)
[2016-11-05] MEDS: SODIUM CHLORIDE 0.9% FLUSH 5 ML FLUSH IV FLUSH SCH ×2 (09:58→22:48)
[2016-11-05] MEDS: CALCIUM/VITAMIN D 250 MG/125 U TAB PO SCH ×2 (09:58→22:47)
--- NOTE | 2016-11-05 10:07 | PD.CAR.PN ---
CVT Progress Note CVT: POD #: 3 Subjective/Hospital Course: 71/ female new findings of right upper lobe mass, found on routine CT chest , h/ o smoking and 9lb weight loss over past year. 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 ambulate wean 02 as tolerated + small intermittent air leak chest tube dressing replaced 3/ had some frequent urination last night UA noted, will start levaquin, await ISIDRO / allery to PCN still has small intermittent air leak 3/ small right apical PTX on CXR small intermittent air leak c/o of nausea and poor appetite during the night change to po cipro for UTI continue pulm toileting Objective: Vital Signs Date Time Temp Pulse Resp B/P Pulse Ox O2 Delivery O2 Flow Rate FiO2 11/05/16 06:21 83 11/05/16 05:01 86 11/05/16 04:39 91 11/05/16 03:40 98.1 90 17 104/55 98 11/05/16 03:00 85 11/05/16 02:16 83 11/05/16 01:20 81 11/05/16 00:00 83 11/04/16 23:26 97.6 92 19 102/56 94 11/04/16 23:00 85 11/04/16 22:00 99 11/04/16 21:00 89 11/04/16 20:44 99 21 11/04/16 20:00 100 11/04/16 19:00 86 11/04/16 19:00 97.5 85 19 119/52 94 11/04/16 18:00 90 11/04/16 17:00 80 11/04/16 16:23 84 11/04/16 16:23 98.3 84 16 107/54 96 11/04/16 16:00 78 11/04/16 15:00 84 11/04/16 14:32 97.7 94 20 119/56 94 11/04/16 14:32 75 11/04/16 14:00 82 11/04/16 13:00 87 11/04/16 12:00 86 11/04/16 11:00 79 Labs: Laboratory Tests Test 11/05/16 03:30 White Blood Count 9.3 TH/MM3 (4.0-11.0) Red Blood Count 3.05 MIL/MM3 (4.00-5.30) Hemoglobin 9.7 GM/DL (11.6-15.3) Hematocrit 27.9 % (35.0-46.0) Mean Corpuscular Volume 91.5 FL (80.0-100.0) Mean Corpuscular Hemoglobin 31.9 PG (27.0-34.0) Mean Corpuscular Hemoglobin 34.9 % Concent (32.0-36.0) Red Cell Distribution Width 13.1 % (11.6-17.2) Platelet Count 227 TH/MM3 (150-450) Mean Platelet Volume 8.7 FL (7.0-11.0) Neutrophils (%) (Auto) 68.9 % (16.0-70.0) Lymphocytes (%) (Auto) 18.0 % (9.0-44.0) Monocytes (%) (Auto) 11.0 % (0.0-8.0) Eosinophils (%) (Auto) 1.8 % (0.0-4.0) Basophils (%) (Auto) 0.3 % (0.0-2.0) Neutrophils # (Auto) 6.4 TH/MM3 (1.8-7.7) Lymphocytes # (Auto) 1.7 TH/MM3 (1.0-4.8) Monocytes # (Auto) 1.0 TH/MM3 (0-0.9) Eosinophils # (Auto) 0.2 TH/MM3 (0-0.4) Basophils # (Auto) 0.0 TH/MM3 (0-0.2) CBC Comment DIFF FINAL Differential Comment Sodium Level 136 MEQ/L (136-145) Potassium Level 4.0 MEQ/L (3.5-5.1) Chloride Level 101 MEQ/L (98-107) Carbon Dioxide Level 28.4 MEQ/L (21.0-32.0) Anion Gap 7 MEQ/L (5-15) Blood Urea Nitrogen 12 MG/DL (7-18) Creatinine 0.86 MG/DL (0.50-1.00) Estimat Glomerular Filtration 65 ML/MIN (>89) Rate Random Glucose 92 MG/DL (74-106) Calcium Level 9.1 MG/DL (8.5-10.1) Result Diagram: 11/05/1632911/05/16329 Telemetry: NSR (1) Hypertension Plan: controlled (2) Tobacco abuse Plan: smoking cessation (3) Lung mass Plan: [id number] no lymph node involvement (4) Robotic Right Upper Lobectomy Plan: nebs, pain control, leave chest tube in (5) UTI (urinary tract infection) Plan: ricarda lima IV, Rosaura Coffman Nov 05, 2016 10:07
[2016-11-05] MEDS: METOCLOPRAMIDE HCL 10 MG/2 ML VIAL IV PUSH SCH ×2 (14:12→22:49)
[2016-11-05] MEDS: SODIUM CHLORIDE 0.9% FLUSH 5 ML FLUSH IV FLUSH PRN (14:13)
[2016-11-05] MEDS: CIPROFLOXACIN 500 MG TAB PO SCH ×2 (14:13→22:47)
[2016-11-05] MEDS ORDERED: CIPR-9 PO (16:11)
[2016-11-05] MEDS ORDERED: DOCU1CAP39 PO (16:11)
--- NOTE | 2016-11-05 16:16 | HHI.FF ---
Face to Face Verification Diagnosis: (1) Lung mass (2) Robotic Right Upper Lobectomy (3) UTI (urinary tract infection) Home Health Nursing Order: Signs/symptoms of disease process Wound care and dressing changes Instructions: Incentive spirometry Q1 hr x 10, while awake, also use acapella device hourly whole awake chest wall Precautions: NO pushing or pulling, ( pt must use chest pillow to support chest with all activities and with coughing All females to wear sternal bra , launder as needed Daily incision care: ok to shower daily ( two days after chest tube removed ), no tub bath. Wash all incisions with liquid dial soap, clean wash cloth to each site, rinse and pat dry. Observe for any signs of infection, such as drainage which is dark yellow, welch, green or foul smelling. Immediately report to the surgeon any drainage from the chest incision, or legs, and for any abnormal drainage from the chest tube sites. Notify surgeon if any temp > 101.5 degrees F. When specialty dressing removed/ or if you do not have one, continue to shower daily as above, then rinse and pat incision dry and paint with betadine daily x 5 days. Allow steri strips to fall off if you have any. Avoid lotions, creams, salves, oils, etc. for the first month F/U appointment: as per [facility] instructions: PCP in 2 weeks, CV surgeon 2 weeks, talent coordinator 3-4 weeks For any questions regarding incisions/ dressing / meds / post op care or above Symptoms, Tuesday 8am-5pm Heart & Vascular Surgery Office ( Dr. Cottrell & Dr. Diallo), After Hours / Nights (5pm -8am) Weekends and Holidays Please call [facility] Cardiac Inter[facility] Unit (C[facility]) Charge Nurse I have seen patient Cecily Valle on 11/05/16. My clinical findings support the need for the requested home health care services because: Patient has SOB Deconditioned w/ increased weakness I certify that my clinical findings support that this patient is homebound because: Post-op weakness Rosaura Dominguez Nov 05, 2016 16:16 Shanda Diallo MD Nov 06, 2016 12:06
--- NOTE | 2016-11-05 17:34 | RADRPT ---
EXAM DATE/TIME: 11/05/2016 16:18 [facility] COMPARISON: CT NEEDLE BIOPSY LUNG, RIGHT, September 30, 2016, 10:04. CHEST PA & LAT, Maryan mber 2014, 17:25. INDICATIONS : Follow up right apical pneumothorax. MEDICAL HISTORY : None. SURGICAL HISTORY : Thoracotomy. ENCOUNTER: Initial ACUITY: 1 day PAIN SCORE: 0/10 LOCATION: Chest FINDINGS: Chest tube is in place on the right with a small 1.4 cm right apical pneumothorax. Mod erate subcutaneous emphysema is present. Left lung is clear. Heart and pulmonary vascularity are normal. CONCLUSION: 1. Chest tube is in place on the right with a small 1.4 cm right apical pneumothorax. 2. Moderate subcutaneous emphysema is present. 3. Left lung is clear. 4. Heart and pulmonary vascularity are normal Narayan Rangel MD FACR on November 05, 2016 at 17:16 Board Certified Radiologist. This report was verified electronically.
[2016-11-05] MEDS: PANTOPRAZOLE SOD 40 MG DELAYED RELEASE TAB PO SCH (22:48)
[2016-11-05] MEDS: DOCUSATE CALCIUM 240 MG CAP PO SCH (22:48)
[2016-11-05] MEDS: ATORVASTATIN 40 MG TAB PO SCH (22:48)
[2016-11-06] VITALS (16 sets, daily range): BP systolic 92–132; BP diastolic 51–65; PULSE 76–95; RESP 16–18; TEMP 97.8–98.6; O2SAT 93–94
[2016-11-06] MEDS: RESP: ALBUTEROL 2.5 MG/3 ML NEB (SCH) NEB ×2 (04:00→09:40)
[2016-11-06] MEDS: LACTATED RINGER'S 1000 ML IV SCH (06:00)
[2016-11-06] MEDS: oxyCODONE/ACETAMINOPHEN 5 MG/325 MG TAB PO PRN ×2 (06:05→10:12)
[2016-11-06] MEDS: METOCLOPRAMIDE HCL 10 MG/2 ML VIAL IV PUSH SCH (06:05)
[2016-11-06] MEDS: CIPROFLOXACIN 500 MG TAB PO SCH (08:16)
[2016-11-06] MEDS: DOCUSATE SODIUM 100 MG CAP PO SCH (08:17)
[2016-11-06] MEDS: POLYETHYLENE GLYCOL 17 GM PKG PO SCH (08:17)
[2016-11-06] MEDS: CALCIUM/VITAMIN D 250 MG/125 U TAB PO SCH (08:17)
[2016-11-06] MEDS: SODIUM CHLORIDE 0.9% FLUSH 5 ML FLUSH IV FLUSH SCH (08:18)
--- NOTE | 2016-11-06 12:10 | HHI.DS ---
Discharge Summary Admission Date Nov 02, 2016 at 05:29 Discharge Date: Nov 06, 2016 Admitting Diagnosis (1) Tobacco abuse Diagnosis: Secondary (2) Robotic Right Upper Lobectomy Diagnosis: Principal (3) Lung cancer Diagnosis: Principal Procedures Robotic right upper lobectomy Brief History 71/ female new findings of right upper lobe mass, found on routine CT chest , h/ o smoking and 9lb weight loss over past year. 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 CBC/BMP: 11/05/16 0330 11/05/16 0330 Significant Findings Laboratory Tests Test 11/05/16 03:30 Red Blood Count 3.05 MIL/MM3 (4.00-5.30) Hemoglobin 9.7 GM/DL (11.6-15.3) Hematocrit 27.9 % (35.0-46.0) Monocytes (%) (Auto) 11.0 % (0.0-8.0) Monocytes # (Auto) 1.0 TH/MM3 (0-0.9) Estimat Glomerular Filtration 65 ML/MIN (>89) Rate Imaging Last Impressions Chest X-Ray 11/05/16 0500 Signed Impressions: Service Date/Time: Saturday, November 05, 2016 04:59 - CONCLUSION: Small right apical pneumothorax Chava Carballo MD PE at Discharge chest - CTA COR - RRR ABD - soft, NT, NABS wound - dry and intact Hospital Course 11/03 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 ambulate wean 02 as tolerated + small intermittent air leak chest tube dressing replaced 3/2 had some frequent urination last night UA noted, will start levaquin, await ISIDRO / allery to PCN still has small intermittent air leak 3/3 small right apical PTX on CXR small intermittent air leak c/o of nausea and poor appetite during the night change to po cipro for UTI continue pulm toileting Pt Condition on Discharge: Good Discharge Disposition: Disch w/ Home Health Serv Discharge Instructions DIET: Follow Instructions for: As Tolerated, No Restrictions Speech Therapy-Diet Recommenda: Regular Activities you can perform: Weight Bearing as Tereso, Shower Only-No Bath Activities to avoid: Lifting/Bending, Driving Follow up Referrals: Appointment for Follow Up - 2 Weeks with Vanessa Cottrell MD PCP Follow-up - 2 Weeks with Stephan Wilson MD Pulmonology - 4 Weeks with Tobi Petersen MD New Medications: Ciprofloxacin (Cipro) 500 Mg Tab 500 MG PO Q12HR uti #10 Ref 0 TAB Docusate Sodium (Dok) 100 Mg Cap 100 MG PO BID Constipation #60 Ref 0 CAP Continued Medications: Alendronate (Alendronate) 70 Mg Tab 70 MG PO Q7D Osteporosis Treatment #4 Ref 0 TAB Alprazolam (Alprazolam) 0.5 Mg Tab 0.5 MG PO Q6H PRN ANXIETY Ref 0 TAB Amlodipine (Amlodipine) 5 Mg Tab 5 MG PO DAILY Blood Pressure Management #30 Ref 0 TAB Atenolol (Atenolol) 25 Mg Tab 25 MG PO DAILY Blood Pressure Management #30 TAB Atorvastatin (Atorvastatin) 40 Mg Tab 40 MG PO HS Cholesterol Management #30 Ref 0 TAB Calcium Carbonate-Vitamin D (Calcium 600+D 200) 600-200 Mg-Unit Tab 2 TAB PO BID TAB Lisinopril (Lisinopril) 5 Mg Tab 10 MG PO BID Blood Pressure Management #30 Ref 0 TAB Multiple Vitamin (Multi Vitamin) 1 Tab Tab 1 TAB PO DAILY TAB Nicotine New (Nicotine New) 2 Mg New 2 MG BUCCAL Q2H PRN SMOKING #1 Ref 0 BOX Discontinued Medications: Sulfamethoxazole-Trimethoprim (Bactrim) 400-80 Mg Tab 2 TAB PO BID Infection Ref 0 TAB Shanda Diallo MD Nov 06, 2016 12:10
== END 2016-11-06 14:01 | disposition home health service (06) | DRG 164 ==
LOC: HSDI 11-02 05:29 → HCPC 11-02 16:50
PROVIDERS: ADMIT Thoracic Surgery (Cardiothoracic Vascular Surgery); ATTEND Thoracic Surgery (Cardiothoracic Vascular Surgery)
PROC: 07B74ZX Excision of Thorax Lymphatic, Percutaneous Endoscopic Approach, Diagnostic (ICD-10-PCS; 2016-11-02)
PROC: 3E0T3CZ (ICD-10-PCS; 2016-11-02)
PROC: 8E0W4CZ Robotic Assisted Procedure of Trunk Region, Percutaneous Endoscopic Approach (ICD-10-PCS; 2016-11-02)
PROC: 0BTC4ZZ Resection of Right Upper Lung Lobe, Percutaneous Endoscopic Approach (ICD-10-PCS; principal; 2016-11-02 09:03)
DX: C34.11 Malignant neoplasm of upper lobe, right bronchus or lung (principal); N39.0 Urinary tract infection, site not specified; J44.9 Chronic obstructive pulmonary disease, unspecified; J95.811 Postprocedural pneumothorax; E78.5 Hyperlipidemia, unspecified; I10 Essential (primary) hypertension; R00.0 Tachycardia, unspecified; R63.4 Abnormal weight loss; F17.210 Nicotine dependence, cigarettes, uncomplicated; M81.0 Age-related osteoporosis without current pathological fracture; Z68.26 Body mass index [BMI] 26.0-26.9, adult; Z88.0 Allergy status to penicillin
CPT/HCPCS: 71010; 71020; 80048; 81001; 85025; 86077; 86850; 86870; 86900; 86901; 86902; 86920; 86922; 87086; 88305; 88307; 88309; 94150; 94640; 94664; C9290; J0131; J1100; J1885; J1940; J1956; J2250; J2270; J2370; J2405; J2710; J2765; J3010; J3370; J7040; J7050; J7120; J7613

== ENCOUNTER → 2016-10-26 | Outpatient (CLI) | payer OTHER ==
[~2016-10-26] MED LIST changes: +ALPR0.5T3 PO; +AMLO5TAB2 PO; +BACT400T PO; +CIPR-9 PO; +DOCU1CAP39 PO; +NICO2LOZ BUCCAL
[2016-10-26 12:00] LABS: MEAN CELL VOLUME 92.8 FL (80.0-100.0); MEAN CORPUSCULAR HEMOGLOBIN 31.3 PG (27.0-34.0); MEAN CORPUSCULAR HGB CONC 33.7 % (32.0-36.0); PLATELET COUNT 296 TH/MM3 (150-450); RED CELL DISTRIBUTION WIDTH 13.1 % (11.6-17.2); REVIEW FLAG FINAL
[2016-10-26 12:10] LABS: APTT (PATIENT) 25.2 SEC (24.3-30.1); PROTHROMBIN TIME - PATIENT 10.8 SEC (9.8-11.6)
[2016-10-26 12:17] LABS: BACTERIA, URINE MANY /hpf; BLOOD, URINE NEG (NEG); COMMENT (UR) CULTURE INDICATED; CULTURE IF INDICATED CULTURE INDICATED; GLUCOSE,URINE NEG (NEG); HYALINE CAST, URINE 1 /lpf (RARE); KETONE, URINE NEG (NEG); MUCUS URINE FEW /lpf (OCC); NITRITE,URINE NEG (NEG); SQUAMOUS EPITHELIAL CELL URINE <1 /hpf (0-5); URINE COLOR YELLOW (YELLW/STRAW)
[2016-10-26 12:22] LABS: BICARBONATE 28.6 MEQ/L (21.0-32.0); POTASSIUM 4.7 MEQ/L (3.5-5.1)
== END ==
LOC: CPRE 10:55
PROVIDERS: ATTEND Thoracic Surgery (Cardiothoracic Vascular Surgery)
DX: Z01.812 Encounter for preprocedural laboratory examination (principal); C34.91 Malignant neoplasm of unspecified part of right bronchus or lung; B96.20 Unspecified Escherichia coli [E. coli] as the cause of diseases classified elsewhere
CPT/HCPCS: 36415; 80048; 81001; 85027; 85610; 85730; 87077; 87086; 87186

== ENCOUNTER 2018-04-12 05:58 | Inpatient (IN) ==
[2018-04-12] MEDS ORDERED: fentaNYL Citrate Inj 250 MCG/5 ML Ampul ONE ×2 (07:36→14:39)
[2018-04-12] MEDS ORDERED: Lidocaine 1%/Epinephrine 1:100,000 Inj 20 ML Vial ONE (07:46)
--- NOTE | 2018-04-12 09:40 | XR ---
EXAM DATE: 04/12/2018 9:23 AM EDT AGE/SEX: 72 years / Female INDICATIONS: Post lung biopsy. CLINICAL DATA: This is the patient's initial encounter. Patient reports that signs and symptoms have been present for 1 day and indicates a pain score of 2/10. MEDICAL/SURGICAL HISTORY: Hypertension. Chronic obstructive pulmonary disease. Tonsillectomy. Thoracotomy. Chest tube. COMPARISON: [facility] [place], CT BIOPSY LUNG LEFT, 04/12/2018. . FINDINGS: A single frontal expiratory view of the chest was performed. No pneumothorax following left-sided jose armando g biopsy. The faint pulmonary nodule within the left upper lobe is difficult to see but partially ove rlapped by the left first anterior rib. No effusions. Interstitial prominence within the bases bilate rally. Heart is normal in size. CONCLUSION: No pneumothorax following left-sided biopsy. Electronically signed by: Reza Dumont MD 04/12/2018 9:32 AM EDT
--- NOTE | 2018-04-12 11:15 | XR ---
EXAM DATE: 04/12/2018 11:09 AM EDT AGE/SEX: 72 years / Female INDICATIONS: Evaluate for pneumothorax. CLINICAL DATA: This is the patient's initial encounter. Patient reports that signs and symptoms have been present for 1 day and indicates a pain score of 0/10. MEDICAL/SURGICAL HISTORY: . Hypertension. Chronic obstructive pulmonary disease. Tonsillectomy . . Thoracotomy. Chest tube. COMPARISON: [facility] [place] [facility] [place] ONLY, 04/12/2018. . FINDINGS: There is a tiny left apical pneumothorax measuring 5 mm. The heart is stable. The pulmonary vasculatu re aneurysmal. The lungs are otherwise clear. CONCLUSION: Tiny left apical pneumothorax measuring 5 mm. Electronically signed by: Andriy Bravo MD 04/12/2018 11:13 AM EDT
--- NOTE | 2018-04-12 13:17 | CT ---
EXAM DATE: 04/12/2018 9:01 AM EDT AGE/SEX: 72 years / Female INDICATIONS: Left lung mass. CLINICAL DATA: This is the patient's initial encounter. Patient reports that signs and symptoms have been present for 1 day and indicates a pain score of 0/10. MEDICAL/SURGICAL HISTORY: Hypertension. Carcinoma, lung. . Right lung mass removed. COMPARISON: [facility], CT CHEST W/O CONTRAST, 03/07/2018. [facility], CT NEEDLE BIOPSY LUNG, RIGHT, 09/30/2016. . BIOPSY SITE: Left lung MEDICATION(S): 3mg midazolam (Versed) IV 150mcg fentanyl (Sublimaze) IV DEVICE(S): 20 gauge BARD biopsy needle One core specimen(s) sent to the laboratory for pathologic evaluation. . . PROCEDURE: CT guided Left lung biopsy Prior to the procedure informed consent was obtained. Any appropriate prior imaging studies were rev iewed. Using automated exposure control and adjustment of the mA and/or kV according to patient size , radiation dose was kept as low as reasonably achievable to obtain optimal diagnostic quality images . DICOM format image data is available electronically for review and comparison. The site was prepped in a sterile fashion. Full sterile technique was used, including cap, mask, martha rile gloves and gown and a large sterile sheet. Hand hygiene and 2% chlorhexidine and/or betadine/al cohol prep was utilized per protocol for cutaneous antisepsis. The skin and subcutaneous tissues wer e infiltrated with local anesthetic solution. With CT guidance the previously identified target was localized. Biopsy was performed using the presc ribed needle as above. Adequate hemostasis was obtained with compression at the puncture site. Follow-up CT scan reveals a miniscule pneumothorax. Conscious sedation was performed with the prescribed dosages and duration as above in the presence of an independent trained radiology nurse to assist in the monitoring of the patient. EKG and oximetry remained stable throughout the procedure. The patient tolerated the procedure well and there were no complications. The patient was sent to Radiology Outpatient Unit in stable condition. FINDINGS: After obtaining consent, a gauge core biopsy of the left upper lobe nodule was performed. The patient tolerated the procedure well without significant complications. A miniscule pneumothorax was noted o n the postbiopsy scan. CONCLUSION: 1. Successful CT guided biopsy. Electronically signed by: Andriy Bravo MD 04/12/2018 1:15 PM EDT
--- NOTE | 2018-04-12 14:24 | XR ---
EXAM DATE: 04/12/2018 2:19 PM EDT AGE/SEX: 72 years / Female INDICATIONS: Increased shortness of breath. Post lung biopsy. CLINICAL DATA: This is the patient's subsequent encounter. Patient reports that signs and symptoms h ave been present for 1 day and indicates a pain score of 2/10. MEDICAL/SURGICAL HISTORY: . Hypertension. Chronic obstructive pulmonary disease. . Tonsillecto my.Thoracotomy. Chest tube. COMPARISON: [facility] [place], 04/12/2018. . FINDINGS: There has been significant interval worsening of the left-sided pneumothorax which now measures 5.8 c m at the left apex and 2.3 cm at the left lateral lung base. Chest tube placement is recommended at t his time for resolution of this significant pneumothorax. The right lung is clear. The heart is stabl e. CONCLUSION: Significant interval worsening of the left-sided pneumothorax which now measures 5.8 cm at the left a pex and 2.3 cm at the left lateral lung base. Chest tube placement is recommended at this time for re solution of this significant pneumothorax. Electronically signed by: Andriy Bravo MD 04/12/2018 2:23 PM EDT
--- NOTE | 2018-04-12 15:15 | P.RAD ---
Post Procedure Progress Note - Pre Procedure Diagnosis (1) Pneumothorax, post biopsy, left - Post Procedure Diagnosis (1) Pneumothorax, post biopsy, left - Procedure Information Procedure Date: 04/12/18 Supervising Radiologist: Reza Dumont Jr, MD Estimated blood loss (mL): 0 - Plan of Activity Patient to Unit: ROPU Patient Condition: Good See PACS Report for procedural detail/treatment. Drainage Procedure Fluoroscopy left Chest Tube Non-Tunneled Placement Kiswahili Tube Size: 12 Drainage: Pleurovac Findings: Placed left chest tube for post bx PTX Plan: Admit
--- NOTE | 2018-04-12 15:48 | XR ---
EXAM DATE: 04/12/2018 3:45 PM EDT AGE/SEX: 72 years / Female INDICATIONS: Post left chest tube placement CLINICAL DATA: This is the patient's initial encounter. Patient reports that signs and symptoms have been present for 1 day and indicates a pain score of 3/10. MEDICAL/SURGICAL HISTORY: . Hypertension. Chronic obstructive pulmonary disease. None. COMPARISON: [facility] [place] 1V SINGLE AP, 04/12/2018. . FINDINGS: A small chest tube has been placed and is in good position with its tip in the apex. The left-sided p neumothorax has resolved. The heart is stable. The lungs are clear. CONCLUSION: Resolution of the left-sided pneumothorax status post placement of small chest tube. Electronically signed by: Andriy Bravo MD 04/12/2018 3:47 PM EDT
[2018-04-12] MEDS ORDERED: HYDROmorphone PF Inj 2 MG/ML Vial ONE (16:46)
--- NOTE | 2018-04-12 16:58 | IR ---
EXAM DATE: 04/12/2018 3:32 PM EDT AGE/SEX: 72 years / Female INDICATIONS: Patient presents with left sided Pneumothorax post lung biopsy in need of chest tube pl acement. CLINICAL DATA: This is the patient's initial encounter. Patient reports that signs and symptoms have been present for 1 day and indicates a pain score of 1/10. MEDICAL/SURGICAL HISTORY: Carcinoma, lung. Hypertension. Tonsillectomy. Right lung surgery, [facility] surgery. COMPARISON: [facility] – [place], CHEST TUBE PLACEMENT, RIGHT, 09/30/2016. . FLUORO TIME (min): 1.05 IMAGE SERIES: 2 ACCESS SITE: SEDATION TIME (min): 15 MEDICATION(S): 2mg midazolam (Versed) IV 150mcg fentanyl (Sublimaze) IV DEVICE(S): 12 Haitian non-locking catheter Pippa . . PROCEDURE: 1. Fluoroscopically guided chest tube placement. 2. Conscious sedation with continuous EKG and oximetry monitoring. The risks, benefits and alternatives to the procedure were explained and verbal and written consent w as obtained. The site was prepped in sterile fashion. Full sterile technique was used, including ca p, mask, sterile gloves and gown and a large sterile sheet. Hand hygiene and 2% chlorhexidine and/or betadine/alcohol prep was utilized per protocol for cutaneous antisepsis. The skin and subcutaneous tissues were infiltrated with local anesthetic solution. With fluoroscopic guidance the chest was punctured between the first and second interspace and the pr escribed catheter was placed in the lung apex. Wall suction was applied. Post procedure images demon strate satisfactory position of the tube. The catheter was sutured in place and a Percu-Stay was david lied. Conscious sedation was performed with the prescribed dosages and duration as above in the presence of an independent trained radiology nurse to assist in the monitoring of the patient. EKG and oximetry remained stable throughout the procedure. The patient tolerated the procedure well and there were n o complications. The patient was sent to post anesthesia recovery in stable condition. CONCLUSION: 1. Uncomplicated left chest tube placement as above. Electronically signed by: Reza Dumont MD 04/12/2018 4:57 PM EDT
[2018-04-12] MEDS ORDERED: HYDROmorphone PF Inj 2 MG/ML Vial IV.PUSH ONE (17:00)
--- NOTE | 2018-04-12 17:10 | P.HPIM ---
History of Present Illness Primary Care Physician: Stephan Wilson MD History of Present Illness: Mrs. 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 Pt was being evaluated in our interventional radiology department on 04/12/18 for a biopsy of a mass in the left lung. Pt developed a pneumothorax following the biopsy and a chest tube was placed by IR. Pt is being admitted for monitoring and further management of the CT by IR. Past Medical Hx SCC of the right lung Hx of pneumothorax HTN Hyperlipidemia Tobacco use Past Surgical Hx Robotic right upper lobectomy with mediastinal lymph node dissection on 11/02/[address] Cottrell Chest tube insertion and removal x 2 (2015 and 2016) Cataract surgery Family Hx Noncontributory Social Hx Hx of tobacco use, 50+ year of smoking 1/2 ppd Social alcohol use Denies any illicit drug use - Diagnosis (1) Pneumothorax, post biopsy, left Inpatient Certification: I certify that the inpatient services were ordered in accordance with Medicare regulations governing the order. This includes certification that hospital inpatient services are reasonable and necessary and in the case of services not specified as inpatient-only under 42 CFR 419.22(n), that they are appropriately provided as inpatient services in accordance to with the 2-midnight benchmark under 43 CFR 412.3(e) Estimated Total Length of Stay (Days): 1 Plans for Post Hospital Care: Home Review of Systems Constitutional: Denies chills, Denies fever(s) Eyes: Denies change in vision Ears, Nose, Mouth, and Throat: Denies hearing loss Cardiovascular: Reports shortness of breath, Denies chest pain Respiratory: Denies cough Gastrointestinal: Denies abdominal pain, Denies nausea, Denies vomiting Genitourinary: Denies urinary incontinence, Denies urinary urgency PMF - History History Provided By: Patient - Tobacco History Second Hand Smoke Exposure: No Tobacco Use In Past 30 Days: No Smoking Status: Former smoker Tobacco Type: Cigarettes - Alcohol History How Often Do You Have a Drink Containing Alcohol: 2 to 3 times a week - Substance Use History Substance History: No History of Abuse Medications and Allergies Allergies Allergy/AdvReac Type Severity Reaction Status Date / Time penicillin G Allergy Unknown Hives Verified 04/12/18 08:01 Home Medications Medication Instructions Recorded Confirmed Type alendronate 70 mg PO QWEEK 04/12/18 04/12/18 History atenolol 25 mg PO BID 04/12/18 04/12/18 History atorvastatin 40 mg PO DAILY 04/12/18 04/12/18 History calcium carbonate-vitamin D3 1 tab PO DAILY 04/12/18 04/12/18 History [Calcium 600 + D(3)] lisinopril 10 mg PO BID 04/12/18 04/12/18 History multivitamin 1 cap PO QAM 04/12/18 04/12/18 History temazepam 15 mg PO HS 04/12/18 04/12/18 History Exam Vital signs: Vital Signs 04/12/18 06:55 04/12/18 09:00 04/12/18 09:21 Temperature 97.6 F 97.6 F Pulse Rate 75 65 Respiratory Rate 16 18 Blood Pressure 145/78 H 116/63 116/63 Pulse Oximetry 93 L 94 L 94 L 04/12/18 09:23 04/12/18 11:08 04/12/18 12:00 Temperature Pulse Rate 54 L Respiratory Rate 18 Blood Pressure 102/56 L 123/70 101/56 L Pulse Oximetry 92 L 95 04/12/18 15:25 Temperature 97.8 F Pulse Rate 66 Respiratory Rate 18 Blood Pressure 126/64 Pulse Oximetry 92 L Intake & Output 04/11/18 04/12/18 04/12/18 18:59 06:59 18:59 Weight 53.6 kg Other: Weight On Admission 53.6 kg Narrative: GENERAL: NAD, AAOx3 SKIN: Warm and dry. HEENT: Atraumatic. Normocephalic. Pupils equal and round. No scleral icterus. No injection or drainage. No nasal bleeding or discharge. Mucous membranes pink and moist. NECK: Trachea midline. No JVD. CARDIO: Regular rate and rhythm. RESP: CTA bilaterally. CT in place in left chest ABD: +BS, soft, non-tender, nondistended. Hepatic and splenic margins not palpable. EXT: Extremities without clubbing, cyanosis, or edema. No obvious deformities. NEURO: Awake and alert. Motor grossly within normal limits. Five out of 5 muscle strength in the arms and legs. Normal speech. PSYCH: Appropriate mood and affect; insight and judgment normal. Results - Imaging Impressions Lung Biopsy CT 04/12/18 07:15 CONCLUSION: 1. Successful CT guided biopsy. Chest X-Ray 04/12/18 08:53 CONCLUSION: No pneumothorax following left-sided biopsy. Chest X-Ray 04/12/18 11:00 CONCLUSION: Tiny left apical pneumothorax measuring 5 mm. Chest X-Ray 04/12/18 14:07 CONCLUSION: Significant interval worsening of the left-sided pneumothorax which now measures 5.8 cm at the left apex and 2.3 cm at the left lateral lung base. Chest tube placement is recommended at this time for resolution of this significant pneumothorax. Chest X-Ray 04/12/18 15:07 CONCLUSION: Resolution of the left-sided pneumothorax status post placement of small chest tube. Caprini VTE Risk Assessment Caprini VTE Risk Assessment: Moderate/High Risk (score >= 2) Caprini Risk Assessment Model: Point Value = 1 Point Value = 2 Point Value = 3 Point Value = 5 Age 41-60 Minor surgery BMI > 25 kg/m2 Swollen legs Varicose veins or History of unexplained or recurrent spontaneous Oral contraceptives or hormone replacement Sepsis (< 1 month) Serious lung disease, including pneumonia (< 1 month) Abnormal pulmonary function Acute myocardial infarction Congestive heart failure (< 1 month) History of inflammatory bowel disease Medical patient at bed rest Age 61-74 Arthroscopic surgery Major open surgery (> 45 min) Laparoscopic surgery (> 45 min) Malignancy Confined to bed (> 72 hours) Immobilizing plaster cast Central venous access Age >= 75 History of VTE Family history of VTE Factor V Leiden Prothrombin [id number] Lupus anticoagulant Anticardiolipin antibodies Elevated serum homocysteine Heparin-induced thrombocytopenia Other congenital or acquired thrombophilia Stroke (< 1 month) Elective arthroplasty Hip, pelvis, or leg fracture Acute spinal cord injury (< 1 month) Prophylaxis Regimen: Total Risk Factor Score Risk Level Prophylaxis Regimen 0-1 Low Early ambulation 2 Moderate Order ONE of the following: *Sequential Compression Device (SCD) *Heparin 5000 units SQ BID 3-4 Higher Order ONE of the following medications: *Heparin 5000 units SQ TID *Enoxaparin/Lovenox 40 mg SQ daily (WT < 150 kg, CrCl > 30 mL/min) *Enoxaparin/Lovenox 30 mg SQ daily (WT < 150 kg, CrCl > 10-29 mL/min) *Enoxaparin/Lovenox 30 mg SQ BID (WT < 150 kg, CrCl > 30 mL/min) AND/OR *Sequential Compression Device (SCD) 5 or more Highest Order ONE of the following medications: *Heparin 5000 units SQ TID (Preferred with Epidurals) *Enoxaparin/Lovenox 40 mg SQ daily (WT < 150 kg, CrCl > 30 mL/min) *Enoxaparin/Lovenox 30 mg SQ daily (WT < 150 kg, CrCl > 10-29 mL/min) *Enoxaparin/Lovenox 30 mg SQ BID (WT < 150 kg, CrCl > 30 mL/min) AND *Sequential Compression Device (SCD) Assessment and Plan - Assessment (1) Pneumothorax, post biopsy, left Code(s): J95.811 - Postprocedural pneumothorax Status: Acute Plan: Pneumothorax, left side - Pt is a 72 y/o female with hx of SCC of the right lung s/p RUL lobectomy in 2016. - Pt was being evaluated in our interventional radiology department on 04/12/18 for a biopsy of a mass in the left lung. Pt follows with Dr. Petersen as an outpt - Pt developed a pneumothorax following the biopsy and a chest tube was placed by IR. - Pt is being admitted for monitoring and further management of the CT by IR. - Percocet PRN pain - IS - Supplemental O2 PRN - CXR in AM is ordered HTN - Cont. home meds with parameters Hx of SCC of the right lung - Pt s/p RUL lobectomy in [address] Cottrell H&P: Quality - VTE Deep Vein Thrombosis/Pulmonary Embolism Present on Admission: No
[2018-04-12] MEDS: Lisinopril 10 MG Tablet PO SCH (20:46)
[2018-04-12] MEDS: Atenolol 25 MG Tablet PO SCH (20:47)
[2018-04-12] MEDS: Temazepam 15 MG Capsule PO SCH (23:23)
[2018-04-13] MEDS: Atenolol 25 MG Tablet PO SCH ×2 (08:29→21:11)
[2018-04-13] MEDS: Lisinopril 10 MG Tablet PO SCH ×2 (08:29→21:13)
[2018-04-13] MEDS: Calcium/Vitamin D 250/125 MG Tablet PO SCH (08:29)
--- NOTE | 2018-04-13 09:28 | MH ---
cc: Tobi Petersen MD, Eugene M MD DATE OF ADMISSION: 04/12/2018 CHIEF COMPLAINT: The patient will come for CT-guided left upper lobe lung biopsy. HISTORY OF PRESENT ILLNESS: Ms. Valle is a 72-year-old female with history of CA of the lung, status post right upper lobectomy, cancer was T1b. She recently had a CT scan of the chest done, which shows a new lesion in the left upper lobe. She was sent for a PET scan done at [facility], which shows evidence of focal recurrence of the disease in the right mediastinal lymph node measuring 2 cm. Also left upper lobe mass is moderately hypermetabolic suspicious for contralateral recurrence of the malignancy. No distant metastases are seen. She has no cough or sputum production. No fever, chills. No night sweats. PAST MEDICAL HISTORY: Significant for history of CA of the lung, status post right lung surgery, hypertension, strabismus surgery, tonsillectomy. MEDICATIONS: 1. She uses Atenolol. 2. Lisinopril 10 mg twice a day. 3. Lipitor once a day. 4. Restoril as needed. ALLERGIES: SHE IS ALLERGIC TO PENICILLIN. SOCIAL HISTORY: She has a 50 year history of smoking 1-1/2 pack a day, which she quit. She drinks socially. 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 She is , lives alone. FAMILY HISTORY: She has 2 adopted children. She has 1 brother with emphysema. Mother with emphysema. REVIEW OF SYSTEMS: She has no fever, chills. No night sweats, no chest pain. No nausea or vomiting. PHYSICAL EXAMINATION: GENERAL: Elderly female, not in any acute distress. VITAL SIGNS: Blood pressure 150/80, heart rate 111, respirations 16, oxygen saturation 99%. HEENT: Unremarkable. NECK: Supple. JVD not raised. Chest: Quiet and no rhonchi. CARDIOVASCULAR: S1, S2 normal. ABDOMEN: Nonacute noted. ASSESSMENT: 1. A 1.6 cm spiculated left upper lobe density, with positive PET scan concerning for malignancy. 2. Right mediastinal lymph node positive on PET scan suggestive of recurrence of the disease. 3. History of cancer of the lung, status post right lung surgery. 4. Insomnia. 5. Hypertension. PLAN: I discussed with the patient and her daughter. She will need CT-guided biopsy of the left lung. I explained the procedure and the complications, including complication of anesthesia, pneumothorax requiring chest tube, bleeding complication, injury to the blood vessel, lungs, nose, arrhythmia, hypoxia and possibility of nondiagnostic biopsy. If the biopsy is nondiagnostic, she may need mediastinoscopy. She will be scheduled for a biopsy at [facility]. Followup in 2 weeks. MD ROBERT Braun/tommie/emilee , 11:17 PM , 11:25 PM
[2018-04-13 09:42] LABS: Baso % (Auto) 0.3 % (0.0-2.0); Eos # (Auto) 0.2 th/mm3 (0.0-0.4); Hematocrit 35.6 % (35.0-46.0); Lymph # (Auto) 1.6 th/mm3 (1.0-4.8); Lymph % (Auto) 23.1 % (9.0-44.0); Mean Corpuscular HGB Conc 33.9 % (32.0-36.0); Mean Corpuscular Volume 94.5 fL (80.0-100.0); Mean Platelet Volume 8.2 fL (7.0-11.0); Mono # (Auto) 0.7 th/mm3 (0.0-0.9); Mono % (Auto) 10.7 % (0.0-8.0); Neut # (Auto) 4.3 th/mm3 (1.8-7.7); Neut % (Auto) 62.9 % (16.0-70.0); Platelet Count 300 th/mm3 (150-450); Red Blood Count 3.76 mil/mm3 (4.00-5.30); White Blood Count 6.8 th/mm3 (4.0-11.0)
[2018-04-13 10:03] LABS: Calcium 8.9 mg/dL (8.5-10.1); Carbon Dioxide 25.7 meq/L (21.0-32.0); Potassium 4.1 meq/L (3.5-5.1)
--- NOTE | 2018-04-13 11:48 | XR ---
EXAM DATE: 04/13/2018 11:44 AM EDT AGE/SEX: 72 years / Female INDICATIONS: Post left lung biopsy yesterday. CLINICAL DATA: This is the patient's initial encounter. Patient reports that signs and symptoms have been present for 2 days and indicates a pain score of 0/10. MEDICAL/SURGICAL HISTORY: Hypertension. carcinoma of the lung. Tonsillectomy. right lung surge ry, strabismus surgery COMPARISON: [facility], CHEST EXPIRATION ONLY, 04/12/2018. . FINDINGS: Trace left base atelectasis. Left chest tube remains in place, tip at the apex. I don't see a pneumot horax but there is focally increased left chest wall emphysema near the axilla. Right lung remains clear. No pleural effusion on either side. Heart size stable, within normal limits. Old right rib fractures are again noted. CONCLUSION: 1. Left chest tube remains in place. No pneumothorax is seen. Mild chest wall emphysema. 2. Mild left base atelectasis. 3. Clear right lung. Electronically signed by: Chava Guerra MD 04/13/2018 11:47 AM EDT
--- NOTE | 2018-04-13 12:15 | P.PNIM ---
Subjective Interval history: no distress. Physical Exam Vital signs: Vital Signs 04/12/18 13:00 04/12/18 14:00 04/12/18 14:15 Temperature 97.8 F Pulse Rate 68 68 66 Respiratory Rate 18 24 18 Blood Pressure 136/82 136/82 126/64 Pulse Oximetry 94 L 94 L 04/12/18 15:00 04/12/18 15:25 04/12/18 15:35 Temperature 97.8 F Pulse Rate 92 H 66 68 Respiratory Rate 18 18 18 Blood Pressure 161/81 H 126/64 126/64 Pulse Oximetry 97 92 L 92 L 04/12/18 18:00 04/12/18 20:00 04/13/18 00:00 Temperature 97.6 F 97.2 F L 97.9 F Pulse Rate 65 67 60 Respiratory Rate 16 18 18 Blood Pressure 135/63 125/60 90/50 L Pulse Oximetry 94 L 96 97 04/13/18 04:00 04/13/18 08:00 Temperature 97.8 F 98.1 F Pulse Rate 62 65 Respiratory Rate 18 18 Blood Pressure 94/47 L 134/63 Pulse Oximetry 95 97 Intake & Output 04/12/18 04/13/18 04/13/18 18:59 06:59 18:59 Intake Total 480 / 480 Balance 480 / 480 Weight 55.9 kg 55.9 kg Intake: Oral 480 / 480 Other: # Voids 3 Date of Last Bowel Movement 04/13/18 # Bowel Movements 1 Weight On Admission 53.6 kg heart reg lung good air entry alesha left chest tube ext no edema Results - Labs CBC & Chem 7: 04/13/18 09:09 04/13/18 09:09 Laboratory Results - last 24 hr 04/13/18 04/13/18 09:09 09:09 WBC 6.8 RBC 3.76 L Hgb 12.0 Hct 35.6 MCV 94.5 MCH 32.0 MCHC 33.9 RDW 13.0 Plt Count 300 MPV 8.2 Neut % (Auto) 62.9 Lymph % (Auto) 23.1 Mercer % (Auto) 10.7 H Eos % (Auto) 3.0 Baso % (Auto) 0.3 Neut # (Auto) 4.3 Lymph # (Auto) 1.6 Mercer # (Auto) 0.7 Eos # (Auto) 0.2 Baso # (Auto) 0.0 WBC Differential . Differential Comment Auto diff final Sodium 138 Potassium 4.1 Chloride 103 Carbon Dioxide 25.7 Anion Gap 9 BUN 13 Creatinine 0.80 Estimated GFR 71 L Random Glucose 91 Calcium 8.9 - Imaging Impressions Chest Tube Insertion 04/12/18 00:00 CONCLUSION: 1. Uncomplicated left chest tube placement as above. Lung Biopsy CT 04/12/18 07:15 CONCLUSION: 1. Successful CT guided biopsy. Chest X-Ray 04/12/18 14:07 CONCLUSION: Significant interval worsening of the left-sided pneumothorax which now measures 5.8 cm at the left apex and 2.3 cm at the left lateral lung base. Chest tube placement is recommended at this time for resolution of this significant pneumothorax. Chest X-Ray 04/12/18 15:07 CONCLUSION: Resolution of the left-sided pneumothorax status post placement of small chest tube. Chest X-Ray 04/13/18 11:02 CONCLUSION: 1. Left chest tube remains in place. No pneumothorax is seen. Mild chest wall emphysema. 2. Mild left base atelectasis. 3. Clear right lung. 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 - Pt was being evaluated in our interventional radiology department on 04/12/18 for a biopsy of a mass in the left lung. Pt follows with Dr. Petersen as an outpt - Pt developed a pneumothorax following the biopsy and a chest tube was placed by IR. - Pt is being admitted for monitoring and further management of the CT by IR. - Percocet PRN pain - IS - Supplemental O2 PRN remove chest tube per IR. dc when ok with IR. HTN - Cont. home meds with parameters Hx of SCC of the right lung - Pt s/p RUL lobectomy in [address] Cottrell
--- NOTE | 2018-04-13 15:26 | XR ---
EXAM DATE: 04/13/2018 3:13 PM EDT AGE/SEX: 72 years / Female INDICATIONS: Follow up chest tube placement. CLINICAL DATA: This is the patient's initial encounter. Patient reports that signs and symptoms have been present for 2 days and indicates a pain score of 0/10. MEDICAL/SURGICAL HISTORY: Carcinoma, lung. . right lung surgery. left lung biopsy yesterday. [place] [facility] [place]. . FINDINGS: A single frontal expiratory view of the chest was performed. Left-sided chest tube is unchanged. No p neumothorax. Subcutaneous emphysema bilaterally. Postsurgical changes right lung. The lungs are symme trically aerated and clear. No evidence of pneumothorax. Mediastinal structures are in the midline. CONCLUSION: Left-sided chest tube without pneumothorax. Electronically signed by: Thad Hamilton MD 04/13/2018 3:25 PM EDT
--- NOTE | 2018-04-13 17:28 | XR ---
EXAM DATE: 04/13/2018 5:15 PM EDT AGE/SEX: 72 years / Female INDICATIONS: Post chest tube removal. CLINICAL DATA: This is the patient's subsequent encounter. Patient reports that signs and symptoms h ave been present for 2 days and indicates a pain score of 0/10. MEDICAL/SURGICAL HISTORY: . Hypertension. Carcinoma of the lung. None. COMPARISON: [facility] – [place], 04/12/2018. . FINDINGS: A single frontal expiratory view of the chest was performed. There is concern for recurrent pneumotho rax on the left. Subcutaneous air overlies the left chest wall. The left chest tube is been removed. Heart is normal in size. CONCLUSION: Concern for possible recurrent pneumothorax on the left following chest tube removal. Electronically signed by: Reza Dumont MD 04/13/2018 5:26 PM EDT
--- NOTE | 2018-04-13 18:16 | CT ---
EXAM DATE: 04/13/2018 5:57 PM EDT AGE/SEX: 72 years / Female INDICATIONS: Pneumothorax CLINICAL DATA: This is the patient's initial encounter. Patient reports that signs and symptoms have been present for 1 day and indicates a pain score of 0/10. MEDICAL/SURGICAL HISTORY: Hypertension. Carcinoma, lung. Lobectomy. RADIATION DOSE: 5.32 CTDI (mGy) COMPARISON: [facility] – [place], CT BIOPSY LUNG LEFT, 04/12/2018. . TECHNIQUE: Multiple contiguous axial images were obtained through the chest without contrast. Image s were obtained in suspended respiration using multiple row detector helical technique. Using automa jason exposure control and adjustment of the mA and/or kV according to patient size, radiation dose was kept as low as reasonably achievable to obtain optimal diagnostic quality images. DICOM format imag e data is available electronically for review and comparison. FINDINGS: The study was performed to assess for recurrent pneumothorax on the left. There is a moderate-sized r ecurrent left pneumothorax. A tiny left effusion noted. No pneumothorax on the right or pneumomediast inum. Small volume subcutaneous air overlies the left chest. Left upper lobe pulmonary nodule noted. Heart is normal in size without pericardial effusion. Coronary artery atherosclerotic calcifications noted. CONCLUSION: 1. Moderate-sized recurrent left pneumothorax with small left effusion. Electronically signed by: Reza Dumont MD 04/13/2018 6:14 PM EDT
[2018-04-13] MEDS ORDERED: fentaNYL Citrate Inj 100 MCG/2 ML Ampul ONE (19:18)
--- NOTE | 2018-04-13 19:44 | P.RAD ---
Post Procedure Progress Note - Pre Procedure Diagnosis (1) Pneumothorax, post biopsy, left - Post Procedure Diagnosis (1) Pneumothorax, post biopsy, left - Procedure Information Procedure Date: 04/13/18 Supervising Radiologist: Reza Dumont Jr, MD Estimated blood loss (mL): 0 Anesthesia: Conscious Sedation - Plan of Activity Patient to Unit: PACU Patient Condition: Good See PACS Report for procedural detail/treatment. Drainage Procedure Fluoroscopy left Chest Tube Non-Tunneled Placement Fluid Description: Clear Findings: Recurrent Left PTX following chest tube removal. Replaced the left chest tube. Plan: CXR in am to asses.
--- NOTE | 2018-04-13 20:17 | XR ---
EXAM DATE: 04/13/2018 8:11 PM EDT AGE/SEX: 72 years / Female INDICATIONS: Post chest tube placement. CLINICAL DATA: This is the patient's subsequent encounter. Patient reports that signs and symptoms h ave been present for 1 day and indicates a pain score of 0/10. MEDICAL/SURGICAL HISTORY: . Hypertension. Carcinoma of the lung. None. COMPARISON: [facility] – [place], CHEST EXPIRATION ONLY, 04/13/2018. . FINDINGS: Left-sided chest tube has been reinserted. There is a persistent small left apical pneumothorax. Advanced chronic obstructive pulmonary disease is again noted. Heart and mediastinal structures are stable. CONCLUSION: Interval insertion of left sided chest tube. Persistent small left apical pneumothorax. COPD. Electronically signed by: Zoran Montejo MD 04/13/2018 8:16 PM EDT
[2018-04-14] MEDS: Temazepam 15 MG Capsule PO SCH (00:20)
[2018-04-14] MEDS: Lisinopril 10 MG Tablet PO SCH ×2 (08:14→21:31)
[2018-04-14] MEDS: Atenolol 25 MG Tablet PO SCH ×3 (08:16→21:43)
[2018-04-14] MEDS: Calcium/Vitamin D 250/125 MG Tablet PO SCH (08:18)
--- NOTE | 2018-04-14 08:23 | XR ---
EXAM DATE: 04/14/2018 8:10 AM EDT AGE/SEX: 72 years / Female INDICATIONS: S/P chest tube placement. CLINICAL DATA: This is the patient's subsequent encounter. Patient reports that signs and symptoms h ave been present for 1 day and indicates a pain score of 0/10. MEDICAL/SURGICAL HISTORY: . Hypertension. Carcinoma of the lung None. [place] [facility] [place]. . FINDINGS: A single frontal expiratory view of the chest was performed. Left-sided thoracostomy tube is unchange d in position. However, the apical lateral pneumothorax seen previously shows interval enlargement pr eviously measuring approximately 1.5 cm in depth and now measuring approximately 2.5 cm in depth. Sta ble deep tissue emphysematous changes about the left hemithorax. Stable atelectatic changes in both l shama bases. Heart size is normal. Osseous structures are intact. CONCLUSION: Slight enlargement of the left apicolateral pneumothorax as detailed above. Stable position of thorac ostomy tube. Electronically signed by: Santhosh Kendall MD 04/14/2018 8:22 AM EDT
--- NOTE | 2018-04-14 09:47 | IR ---
EXAM DATE: 04/13/2018 7:52 PM EDT AGE/SEX: 72 years / Female INDICATIONS: Patient with recurrent pneumothorax following chest tube removal in need of left chest tube placement. CLINICAL DATA: This is the patient's subsequent encounter. Patient reports that signs and symptoms h ave been present for 2 days and indicates a pain score of 10/10. MEDICAL/SURGICAL HISTORY: Lung cancer, HTN Tonsillectomy. Chest tube placement, Right upper lobectom y COMPARISON: [facility] – [place], CHEST EXPIRATION ONLY, 04/14/2018. . FLUORO TIME (min): 1.5 IMAGE SERIES: 1 ACCESS SITE: SEDATION TIME (min): 15 MEDICATION(S): 2mg midazolam (Versed) IV 100mcg fentanyl (Sublimaze) IV DEVICE(S): 8 Hebrew non-locking catheter Pippa . . PROCEDURE: 1. Fluoroscopically guided chest tube placement. 2. Conscious sedation with continuous EKG and oximetry monitoring. The risks, benefits and alternatives to the procedure were explained and verbal and written consent w as obtained. The site was prepped in sterile fashion. Full sterile technique was used, including ca p, mask, sterile gloves and gown and a large sterile sheet. Hand hygiene and 2% chlorhexidine and/or betadine/alcohol prep was utilized per protocol for cutaneous antisepsis. The skin and subcutaneous tissues were infiltrated with local anesthetic solution. With fluoroscopic guidance the chest was punctured between the first and second interspace and the pr escribed catheter was placed in the lung apex. Wall suction was applied. Post procedure images demon strate satisfactory position of the tube. The catheter was sutured in place and a Percu-Stay was david lied. Conscious sedation was performed with the prescribed dosages and duration as above in the presence of an independent trained radiology nurse to assist in the monitoring of the patient. EKG and oximetry remained stable throughout the procedure. The patient tolerated the procedure well and there were n o complications. The patient was sent to post anesthesia recovery in stable condition. CONCLUSION: 1. Uncomplicated left chest tube placement as above. Electronically signed by: Reza Dumont MD 04/14/2018 9:46 AM EDT
[2018-04-14] MEDS ORDERED: fentaNYL Citrate Inj 250 MCG/5 ML Ampul ONE (09:56)
--- NOTE | 2018-04-14 11:07 | P.RAD ---
Post Procedure Progress Note - Pre Procedure Diagnosis (1) Pneumothorax, post biopsy, left - Post Procedure Diagnosis (1) Pneumothorax, post biopsy, left - Procedure Information Procedure Date: 04/14/18 Supervising Radiologist: Santhosh Kendall MD Estimated blood loss (mL): 0 Anesthesia: Local, Analgesia, Conscious Sedation - Plan of Activity See PACS Report for procedural detail/treatment. Drainage Procedure Exchange Frisian Tube Size: 10 Findings: Exchanged, repositioned and upsized
--- NOTE | 2018-04-14 11:21 | P.PNIM ---
Subjective Interval history: comfortable. Physical Exam Vital signs: Vital Signs 04/13/18 12:00 04/13/18 16:00 04/13/18 19:56 Temperature 97.9 F 98.1 F 97.6 F Pulse Rate 61 74 61 Respiratory Rate 19 19 7 L Blood Pressure 135/76 141/64 H 157/69 H Pulse Oximetry 94 L 95 100 04/13/18 20:08 04/13/18 20:15 04/13/18 20:26 Temperature 97.6 F 97.9 F Pulse Rate 57 L 56 L 64 Respiratory Rate 13 17 17 Blood Pressure 141/60 H 133/66 146/70 H Pulse Oximetry 100 100 97 04/14/18 00:00 04/14/18 03:52 04/14/18 08:00 Temperature 97.8 F 97.5 F L 98.1 F Pulse Rate 67 77 68 Respiratory Rate 15 15 16 Blood Pressure 124/56 L 94/56 L 118/69 Pulse Oximetry 96 98 93 L 04/14/18 10:40 04/14/18 10:55 Temperature 98.5 F Pulse Rate 56 L 54 L Respiratory Rate 18 18 Blood Pressure 110/58 L 118/67 Pulse Oximetry 92 L 93 L Intake & Output 04/13/18 04/14/18 04/14/18 18:59 06:59 18:59 Intake Total 800 / 800 Output Total 1200 / 1200 400 / 400 Balance -400 / -400 -400 / -400 Weight 56.7 kg Intake: Oral 800 / 800 Output: Urine 1200 / 1200 400 / 400 heart reg lung cta abd s/nt ext no edema Results - Labs CBC & Chem 7: 04/13/18 09:09 04/13/18 09:09 - Imaging Impressions Chest CT 04/13/18 00:00 CONCLUSION: 1. Moderate-sized recurrent left pneumothorax with small left effusion. Chest X-Ray 04/13/18 11:02 CONCLUSION: 1. Left chest tube remains in place. No pneumothorax is seen. Mild chest wall emphysema. 2. Mild left base atelectasis. 3. Clear right lung. Chest X-Ray 04/13/18 15:07 CONCLUSION: Left-sided chest tube without pneumothorax. Chest X-Ray 04/13/18 16:12 CONCLUSION: Concern for possible recurrent pneumothorax on the left following chest tube removal. Chest Tube Insertion 04/13/18 18:12 CONCLUSION: 1. Uncomplicated left chest tube placement as above. Chest X-Ray 04/13/18 19:41 CONCLUSION: Interval insertion of left sided chest tube. Persistent small left apical pneumothorax. COPD. Chest X-Ray 04/14/18 08:00 CONCLUSION: Slight enlargement of the left apicolateral pneumothorax as detailed above. Stable position of thoracostomy tube. 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 - Pt was being evaluated in our interventional radiology department on 04/12/18 for a biopsy of a mass in the left lung. Pt follows with Dr. Petersen as an outpt - Pt developed a pneumothorax following the biopsy and a chest tube was placed by IR. - Pt is being admitted for monitoring and further management of the CT by IR. - Percocet PRN pain - IS - Supplemental O2 PRN chest tube removed last night but recurrent ptx. CT replaced last night but still with ptx today. going to IR for larger bore Chest tube. HTN - Cont. home meds with parameters Hx of SCC of the right lung - Pt s/p RUL lobectomy [place] [address] Cottrell
--- NOTE | 2018-04-14 11:52 | IR ---
EXAM DATE: 04/14/2018 10:54 AM EDT AGE/SEX: 72 years / Female INDICATIONS: Patient presents with recurrent pneumothorax in need of chest tube exchange with colin gatica. CLINICAL DATA: This is the patient's subsequent encounter. Patient reports that signs and symptoms h ave been present for 3 days and indicates a pain score of 0/10. MEDICAL/SURGICAL HISTORY: Carcinoma, lung. Hypertension. Pneumothorax. . Lung surgery, Strabi smus surgery, Tonsillectomy. COMPARISON: [facility], CHEST TUBE PLACEMENT W FL LT, 04/13/2018. . FLUORO TIME (min): 2.83 IMAGE SERIES: 2 SEDATION TIME (min): 15 MEDICATION(S): 2mg midazolam (Versed) IV 100mcg fentanyl (Sublimaze) IV DEVICE(S): 10 Yi non-locking catheter Pippa . . PROCEDURE: 1. Fluoroscopically guided chest tube exchange. 2. Conscious sedation with continuous EKG and oximetry monitoring. The risks, benefits and alternatives to the procedure were explained and verbal and written consent w as obtained. The site was prepped in sterile fashion. Full sterile technique was used, including ca p, mask, sterile gloves and gown and a large sterile sheet. Hand hygiene and 2% chlorhexidine and/or betadine/alcohol prep was utilized per protocol for cutaneous antisepsis. The skin and subcutaneous tissues were infiltrated with local anesthetic solution. With fluoroscopic guidance the previously placed chest tube was exchanged for the prescribed catheter . The existing 8 Yi catheter was exchanged for a 10 Yi device and the cope loop repositioned into the apex of the hemithorax. Post procedure imaging demonstrates satisfactory position of the tu be. The catheter was sutured in place and a Percu-Stay was applied. Conscious sedation was performed with the prescribed dosages and duration as above in the presence of an independent trained radiology nurse to assist in the monitoring of the patient. EKG and oximetry remained stable throughout the procedure. The patient tolerated the procedure well and there were no complications. The patient was sent to post anesthesia recovery in stable condition. CONCLUSION: 1. Uncomplicated chest tube exchange, repositioning and upsize as above. Electronically signed by: Santhosh Kendall MD 04/14/2018 11:51 AM EDT
--- NOTE | 2018-04-14 13:03 | XR ---
EXAM DATE: 04/14/2018 12:55 PM EDT AGE/SEX: 72 years / Female INDICATIONS: Post chest tube placement. Follow-up left pneumothorax. CLINICAL DATA: This is the patient's subsequent encounter. Patient reports that signs and symptoms h ave been present for 3 days and indicates a pain score of 0/10. MEDICAL/SURGICAL HISTORY: . pneumothorax. . Chest tube. COMPARISON: [facility] – [place], CHEST EXPIRATION ONLY, 04/14/2018. . FINDINGS: A single AP view of the chest was obtained and again demonstrates a small bore left-sided chest tube in place with the tip projected over the lung apex. The left upper and lateral pneumothorax is again identified and does not appear significantly changed. Subcutaneous emphysema is again noted over the left lateral chest wall. Patchy opacity remains at the left lung base. The heart size is within corinne l limits. CONCLUSION: No significant change in the left pneumothorax. The left-sided chest tube remains in place. Electronically signed by: Casey Robison MD 04/14/2018 1:01 PM EDT
[2018-04-14] MEDS ORDERED: Lisinopril 10 MG Tablet PO ONE (16:00)
--- NOTE | 2018-04-14 16:00 | XR ---
EXAM DATE: 04/14/2018 3:55 PM EDT AGE/SEX: 72 years / Female INDICATIONS: Left chest tube reposition. CLINICAL DATA: This is the patient's initial encounter. Patient reports that signs and symptoms have been present for 1 day and indicates a pain score of 7/10. MEDICAL/SURGICAL HISTORY: . Carcinoma, lung. Hypertension. Pneumothorax. . Lung surgery, Strabi smus surgery, Tonsillectomy. . Lung surgery, Strabismus surgery, Tonsillectomy COMPARISON: [facility] – [place], CHEST EXPIRATION ONLY, 04/14/2018. . FINDINGS: The left lung has reexpanded following repositioning of left-sided thoracostomy tube. There is no feliz dence of pneumothorax. Minimal airspace disease remains evident in the left base. Lungs are hyperinflated. Heart and mediastinal structures are stable. CONCLUSION: Reexpansion of the left lung following repositioning of left-sided chest tube. No evidence of significant pneumothorax. Electronically signed by: Zoran Montejo MD 04/14/2018 3:59 PM EDT
--- NOTE | 2018-04-14 16:04 | P.RAD ---
Radiology Note Reviewed post chest tube radiograph. Persistent left apical PTX on suction. No air leak. Tube cleared with saline. Reconnected to Pleuravac suction with large, temporary air-leak. Small air leak with deep inspiration. Repeat radiograph showed resolution of previous ptx. Patient encourage to sit upright during waking hours to minimize debris occluding tube over the weekend.
--- NOTE | 2018-04-14 16:14 | IR ---
EXAM DATE: 04/14/2018 2:31 PM EDT AGE/SEX: 72 years / Female INDICATIONS: Removal of left chest tube ordered s/p CXR demonstrates resolution of pneumothorax. COMPARISON: [facility], CHEST TUBE PLACEMENT W FL LT, 04/12/2018. . DEVICE(S): Vaseline occlusive dressing PROCEDURE: 1. Chest tube removal. No air leak present. No residual pneumothorax. Chest tube removal was felt most prudent. Using asepti c technique the previously placed chest tube was easily removed in one piece and Vaseline gauze and s terile dressing was applied. Chest radiograph is to be obtained. CONCLUSION: 1. Uncomplicated left chest tube removal. Electronically signed by: Reza Dumont MD 04/14/2018 4:13 PM EDT
[2018-04-15] MEDS: Temazepam 15 MG Capsule PO SCH (00:27)
[2018-04-15] MEDS: Atenolol 25 MG Tablet PO SCH ×2 (09:33→23:45)
[2018-04-15] MEDS: Lisinopril 10 MG Tablet PO SCH ×2 (09:33→23:44)
[2018-04-15] MEDS: Calcium/Vitamin D 250/125 MG Tablet PO SCH (09:37)
--- NOTE | 2018-04-15 10:36 | XR ---
EXAM DATE: 04/15/2018 10:32 AM EDT AGE/SEX: 72 years / Female INDICATIONS: Evaluate for pneumothorax. CLINICAL DATA: This is the patient's initial encounter. Patient reports that signs and symptoms have been present for 1 day and indicates a pain score of 0/10. MEDICAL/SURGICAL HISTORY: Carcinoma, lung. Hypertension. Tonsillectomy. COMPARISON: [facility] – [place], CHEST EXPIRATION ONLY, 04/14/2018. . FINDINGS: A single AP view of the chest demonstrates left apical pneumothorax with adjacent tube. Pleural separ ation millimeters. Lungs are clear. The cardiomediastinal contours are unremarkable. Osseous struct ures are intact. CONCLUSION: Left apical pneumothorax Electronically signed by: Thad Hamilton MD 04/15/2018 10:35 AM EDT
--- NOTE | 2018-04-15 11:32 | P.PNIM ---
Subjective Interval history: anxious. no cp. no sob at rest. Physical Exam Vital signs: Vital Signs 04/14/18 12:00 04/14/18 15:17 Temperature 97.7 F Pulse Rate 63 73 Respiratory Rate 17 Blood Pressure 141/67 H 168/72 H Pulse Oximetry 95 Intake & Output 04/14/18 04/15/18 04/15/18 18:59 06:59 18:59 Weight 57 kg Other: Date of Last Bowel Movement 04/13/18 heart reg lung good air entry bi left chest tube. air leaking just with talking/deep breath. Results - Labs CBC & Chem 7: 04/13/18 09:09 04/13/18 09:09 - Imaging Impressions Tunnelled Chest Tube Removal 04/13/18 15:55 CONCLUSION: 1. Uncomplicated left chest tube removal. Chest Tube Change 04/14/18 00:00 CONCLUSION: 1. Uncomplicated chest tube exchange, repositioning and upsize as above. Chest X-Ray 04/14/18 12:30 CONCLUSION: No significant change in the left pneumothorax. The left-sided chest tube remains in place. Chest X-Ray 04/14/18 15:26 CONCLUSION: Reexpansion of the left lung following repositioning of left-sided chest tube. No evidence of significant pneumothorax. 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 - Pt was being evaluated in our interventional radiology department on 04/12/18 for a biopsy of a mass in the left lung. Pt follows with Dr. Petersen as an outpt - Pt developed a pneumothorax following the biopsy and a chest tube was placed by IR. - Pt is being admitted for monitoring and further management of the CT by IR. - Percocet PRN pain - IS - Supplemental O2 PRN initial chest tube removed with recurrent ptx on 04/13. replaced on 04/13 but peristent ptx on 04/14. chest tube adjustments made again on 04/14 by IR with resolution of ptx. now with persistent air leak and a small apical ptx again. called IR Dr Gonzalez who will evaluate today. stat CT chest and possible repeat IR intervention vs consulting CTS. HTN - Cont. home meds with parameters Hx of SCC of the right lung - Pt s/p RUL lobectomy in [address] Cottrell
--- NOTE | 2018-04-15 13:14 | CT ---
EXAM DATE: 04/15/2018 1:08 PM EDT AGE/SEX: 72 years / Female INDICATIONS: Pneumothorax, shortness of breath. CLINICAL DATA: This is the patient's initial encounter. Patient reports that signs and symptoms have been present for 1 day and indicates a pain score of 2/10. MEDICAL/SURGICAL HISTORY: Carcinoma, lung. Chronic obstructive pulmonary disease. Chest tube, left . RADIATION DOSE: 4.25 CTDI (mGy) COMPARISON: [facility] – [place], CT CHEST W/O CONTRAST, 04/13/2018. . TECHNIQUE: Multiple contiguous axial images were obtained through the chest without contrast. Image s were obtained in suspended respiration using multiple row detector helical technique. Using automa jason exposure control and adjustment of the mA and/or kV according to patient size, radiation dose was kept as low as reasonably achievable to obtain optimal diagnostic quality images. DICOM format imag e data is available electronically for review and comparison. FINDINGS: Lungs: There is a small left-sided chest tube in place. The pigtail is located near the apex. There continues to be a small to moderate left pneumothorax. Stable parenchymal density in the left upper l shama. Otherwise, the rest of the lung de la cruz remain clear and stable compared to the prior study. Mediastinum: There is good visualization of the great vessels of the middle mediastinum. No evidenc e of mediastinal or hilar adenopathy/mass. Pleurae: No evidence of focal thickening or pleural effusion. Axillae: Unremarkable. Bony Structures: Primary degenerative changes. Miscellaneous: The examination was extended to include the upper abdomen, and both adrenal glands ar e normal in size and configuration. CONCLUSION: 1. Small left-sided chest tube in place and in good position. 2. Continues to be a small to moderate left-sided pneumothorax. Electronically signed by: Drew Garrett MD 04/15/2018 1:12 PM EDT
--- NOTE | 2018-04-15 15:03 | P.PNCV ---
- Note Subjective/Hospital Course: Patient known to Dr. Cottrell s/p lobectomy for lung cancer. She recently underwent percutaneous biopsy for a new left lung lesion complicated by pneumothorax. She has has ~2 catheters placed by IR with a residual left pneumothorax. She currently is stable with no complaints. Objective: Vital Signs - 24 hr 04/14/18 15:17 04/15/18 08:00 04/15/18 12:00 Temperature 97.7 F 97.6 F Pulse Rate 73 87 72 Respiratory Rate 20 20 Blood Pressure 168/72 H 167/78 H 175/78 H Pulse Oximetry 95 94 L Result Diagrams: 04/13/18 09:09 04/13/18 09:09 Imaging: Lung Biopsy CT 04/12/18 07:15 CONCLUSION: 1. Successful CT guided biopsy. Tunnelled Chest Tube Removal 04/13/18 15:55 CONCLUSION: 1. Uncomplicated left chest tube removal. Chest Tube Insertion 04/13/18 18:12 CONCLUSION: 1. Uncomplicated left chest tube placement as above. Chest Tube Change 04/14/18 00:00 CONCLUSION: 1. Uncomplicated chest tube exchange, repositioning and upsize as above. Chest X-Ray 04/15/18 09:58 CONCLUSION: Left apical pneumothorax Chest CT 04/15/18 11:27 CONCLUSION: 1. Small left-sided chest tube in place and in good position. 2. Continues to be a small to moderate left-sided pneumothorax. Pulmonary: CTA CT: Small air leak on suction 72y/o female s/p left lung biopsy complicated by pneumothorax s/p catheter placement by IR. Currently, she is stable with a small air leak on suction. Will review CXR in AM and follow. She may need a left VATS procedure if this doesn't resolve.
--- NOTE | 2018-04-15 15:27 | XR ---
EXAM DATE: 04/15/2018 3:07 PM EDT AGE/SEX: 72 years / Female INDICATIONS: Evaluate for pneumothorax. CLINICAL DATA: This is the patient's initial encounter. Patient reports that signs and symptoms have been present for 1 day and indicates a pain score of 0/10. MEDICAL/SURGICAL HISTORY: Carcinoma, lung. Hypertension. Tonsillectomy. COMPARISON: [facility] – [place], CHEST 1V SINGLE AP, 04/15/2018. . FINDINGS: There continues to be a pneumothorax along the left apex with approximately 2.4 cm of separation. A s mall chest tube is in place with the pigtail at the apex. Otherwise the lungs are stable compared to the prior examination. There is some mild atelectasis in the left lung base. No definite pleural effu sions. The heart size is stable. The bony structures are stable. CONCLUSION: 1. Persistent left apical pneumothorax with 2.4 cm of separation. The small left chest tube remains in place. 2. Mild atelectasis left lung base. Electronically signed by: Drew Garrett MD 04/15/2018 3:25 PM EDT
[2018-04-15] MEDS: ALPRAZolam 0.5 MG Tablet PO PRN (16:45)
[2018-04-16] MEDS: Temazepam 15 MG Capsule PO SCH ×2 (01:15→23:53)
--- NOTE | 2018-04-16 03:43 | XR ---
EXAM DATE: 04/16/2018 3:25 AM EDT AGE/SEX: 72 years / Female INDICATIONS: Shortness of breath, possible pulmonary disease. CLINICAL DATA: This is the patient's subsequent encounter. Patient reports that signs and symptoms h ave been present for 4 - 6 days and indicates a pain score of 0/10. MEDICAL/SURGICAL HISTORY: Carcinoma, lung. Hypertension. Tonsillectomy. [place] [facility] [place]. . FINDINGS: Portable semiupright AP view of the chest demonstrates a normal-sized cardiac silhouette. Small bore pigtail pleural catheter remains present at the apex the left hemithorax. There is a persistent left pneumothorax that is either stable to slightly increased in size. Stable nodule is identified in the left upper lobe. No pleural effusion is seen. The bones and soft tissues demonstrate no acute abnorma lity. CONCLUSION: 1. Persistent left pneumothorax that is either stable to minimally increased in size from yesterday' s examination. 2. Left upper lobe nodule remains visualized. Electronically signed by: Chava Hoang MD 04/16/2018 3:42 AM EDT
--- NOTE | 2018-04-16 09:07 | P.PNIM ---
Subjective Interval history: no cp. anxiety better. Physical Exam Vital signs: Vital Signs 04/15/18 12:00 04/15/18 16:10 04/15/18 16:14 Temperature 97.6 F Pulse Rate 72 74 Respiratory Rate 20 Blood Pressure 175/78 H 165/77 H Pulse Oximetry 94 L 04/15/18 17:00 04/15/18 18:00 04/15/18 19:00 Temperature Pulse Rate 69 66 70 Respiratory Rate 28 H 20 22 Blood Pressure 137/69 106/53 L 97/55 L Pulse Oximetry 98 98 94 L 04/15/18 20:00 04/15/18 21:00 04/15/18 22:00 Temperature 97.5 F L Pulse Rate 67 72 71 Respiratory Rate 26 H 39 H 19 Blood Pressure 116/62 108/56 L 107/53 L Pulse Oximetry 94 L 94 L 96 04/15/18 23:00 04/15/18 23:01 04/15/18 23:15 Temperature Pulse Rate 70 73 73 Respiratory Rate 18 20 21 Blood Pressure 81/48 L 83/52 L 94/55 L Pulse Oximetry 95 95 95 04/15/18 23:30 04/15/18 23:45 04/16/18 00:00 Temperature 97.7 F Pulse Rate 71 73 69 Respiratory Rate 22 21 24 Blood Pressure 104/56 L 91/50 L 90/50 L Pulse Oximetry 95 94 L 97 04/16/18 00:15 04/16/18 00:30 04/16/18 00:45 Temperature Pulse Rate 66 71 68 Respiratory Rate 33 H 26 H 20 Blood Pressure 102/59 L 91/52 L 97/50 L Pulse Oximetry 95 96 98 04/16/18 01:00 04/16/18 01:15 04/16/18 01:30 Temperature Pulse Rate 69 81 70 Respiratory Rate 20 23 20 Blood Pressure 95/51 L 98/69 L 100/55 L Pulse Oximetry 97 95 94 L 04/16/18 01:45 04/16/18 01:47 04/16/18 02:00 Temperature Pulse Rate 74 73 74 Respiratory Rate 20 20 20 Blood Pressure 77/49 L 82/50 L 85/54 L Pulse Oximetry 94 L 94 L 94 L 04/16/18 02:15 04/16/18 02:30 04/16/18 02:45 Temperature Pulse Rate 72 73 71 Respiratory Rate 19 18 20 Blood Pressure 93/55 L 92/55 L 92/55 L Pulse Oximetry 94 L 93 L 96 04/16/18 03:00 04/16/18 03:15 04/16/18 03:30 Temperature Pulse Rate 72 72 71 Respiratory Rate 19 19 19 Blood Pressure 87/51 L 99/52 L 93/49 L Pulse Oximetry 95 95 96 04/16/18 03:45 04/16/18 04:00 04/16/18 04:15 Temperature 98.4 F Pulse Rate 71 70 71 Respiratory Rate 19 20 21 Blood Pressure 94/54 L 92/55 L 105/57 L Pulse Oximetry 94 L 96 96 04/16/18 07:45 Temperature Pulse Rate Respiratory Rate Blood Pressure Pulse Oximetry 95 Intake & Output 04/15/18 04/16/18 04/16/18 18:59 06:59 18:59 Output Total 100 / 100 300 / 300 Balance -100 / -100 -300 / -300 Weight 57 kg 54.2 kg Output: Urine 100 / 100 300 / 300 Chest Tube Drainage 0 / 0 #1 Left Upper Anterior 0 / 0 Other: # Voids 1 1 Date of Last Bowel Movement 04/13/18 04/13/18 # Bowel Movements 0 heart reg lung good air entry left chest tube to suction ext no edema Results - Labs CBC & Chem 7: 04/13/18 09:09 04/13/18 09:09 Laboratory Results - last 24 hr 04/15/18 16:17 Nasal Screen MRSA (PCR) Not detected - Imaging Impressions Chest X-Ray 04/15/18 09:58 CONCLUSION: Left apical pneumothorax Chest CT 04/15/18 11:27 CONCLUSION: 1. Small left-sided chest tube in place and in good position. 2. Continues to be a small to moderate left-sided pneumothorax. Chest X-Ray 04/15/18 14:36 CONCLUSION: 1. Persistent left apical pneumothorax with 2.4 cm of separation. The small left chest tube remains in place. 2. Mild atelectasis left lung base. Chest X-Ray 04/16/18 06:00 CONCLUSION: 1. Persistent left pneumothorax that is either stable to minimally increased in size from yesterday's examination. 2. Left upper lobe nodule remains visualized. 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 - Pt was being evaluated in our interventional radiology department on 04/12/18 for a biopsy of a mass in the left lung. Pt follows with Dr. Petersen as an outpt - Pt developed a pneumothorax following the biopsy and a chest tube was placed by IR. - Pt is being admitted for monitoring and further management of the CT by IR. - Percocet PRN pain - IS - Supplemental O2 PRN initial chest tube removed with recurrent ptx on 04/13. replaced on 04/13 but peristent ptx on 04/14. chest tube adjustments made again to 10french on 04/14 by IR with resolution of ptx. now with persistent air leak and a small apical ptx again. called IR Dr Gonzalez and we performed CT chest on 04/[address] in correct position but small/mod ptx despite suction. discussed with dean of girls and CTS Dr Diallo. Pt being monitored in ICU. no distress. 97% on room air but will place NRB. VATS being considered if no resolution. HTN - Cont. home meds with parameters Hx of SCC of the right lung - Pt s/p RUL lobectomy [place] [address] Cottrell
[2018-04-16] MEDS: Calcium/Vitamin D 250/125 MG Tablet PO SCH (09:11)
[2018-04-16] MEDS: Atenolol 25 MG Tablet PO SCH ×2 (09:11→23:42)
--- NOTE | 2018-04-16 11:51 | P.PNCV ---
- Note Subjective/Hospital Course: Patient known to Dr. Cottrell s/p lobectomy for lung cancer. She recently underwent percutaneous biopsy for a new left lung lesion complicated by pneumothorax. She has has ~2 catheters placed by IR with a residual left pneumothorax. She currently is stable with no complaints. 04/16/18 No complaints today. CXR shows stable left apical PTX. She has what appears to be a primary adenocarcinoma of the left upper lobe. Objective: Vital Signs - 24 hr 04/15/18 12:00 04/15/18 16:10 04/15/18 16:14 Temperature 97.6 F Pulse Rate 72 74 Respiratory Rate 20 Blood Pressure 175/78 H 165/77 H Pulse Oximetry 94 L 04/15/18 17:00 04/15/18 18:00 04/15/18 19:00 Temperature Pulse Rate 69 66 70 Respiratory Rate 28 H 20 22 Blood Pressure 137/69 106/53 L 97/55 L Pulse Oximetry 98 98 94 L 04/15/18 20:00 04/15/18 21:00 04/15/18 22:00 Temperature 97.5 F L Pulse Rate 67 72 71 Respiratory Rate 26 H 39 H 19 Blood Pressure 116/62 108/56 L 107/53 L Pulse Oximetry 94 L 94 L 96 04/15/18 23:00 04/15/18 23:01 04/15/18 23:15 Temperature Pulse Rate 70 73 73 Respiratory Rate 18 20 21 Blood Pressure 81/48 L 83/52 L 94/55 L Pulse Oximetry 95 95 95 04/15/18 23:30 04/15/18 23:45 04/16/18 00:00 Temperature 97.7 F Pulse Rate 71 73 69 Respiratory Rate 22 21 24 Blood Pressure 104/56 L 91/50 L 90/50 L Pulse Oximetry 95 94 L 97 04/16/18 00:15 04/16/18 00:30 04/16/18 00:45 Temperature Pulse Rate 66 71 68 Respiratory Rate 33 H 26 H 20 Blood Pressure 102/59 L 91/52 L 97/50 L Pulse Oximetry 95 96 98 04/16/18 01:00 04/16/18 01:15 04/16/18 01:30 Temperature Pulse Rate 69 81 70 Respiratory Rate 20 23 20 Blood Pressure 95/51 L 98/69 L 100/55 L Pulse Oximetry 97 95 94 L 04/16/18 01:45 04/16/18 01:47 04/16/18 02:00 Temperature Pulse Rate 74 73 74 Respiratory Rate 20 20 20 Blood Pressure 77/49 L 82/50 L 85/54 L Pulse Oximetry 94 L 94 L 94 L 04/16/18 02:15 04/16/18 02:30 04/16/18 02:45 Temperature Pulse Rate 72 73 71 Respiratory Rate 19 18 20 Blood Pressure 93/55 L 92/55 L 92/55 L Pulse Oximetry 94 L 93 L 96 04/16/18 03:00 04/16/18 03:15 04/16/18 03:30 Temperature Pulse Rate 72 72 71 Respiratory Rate 19 19 19 Blood Pressure 87/51 L 99/52 L 93/49 L Pulse Oximetry 95 95 96 04/16/18 03:45 04/16/18 04:00 04/16/18 04:15 Temperature 98.4 F Pulse Rate 71 70 71 Respiratory Rate 19 20 21 Blood Pressure 94/54 L 92/55 L 105/57 L Pulse Oximetry 94 L 96 96 04/16/18 05:00 04/16/18 05:15 04/16/18 05:30 Temperature Pulse Rate 74 71 68 Respiratory Rate 21 19 18 Blood Pressure 97/55 L 93/55 L 98/53 L Pulse Oximetry 94 L 95 95 04/16/18 05:45 04/16/18 06:00 04/16/18 06:15 Temperature Pulse Rate 68 70 71 Respiratory Rate 16 18 21 Blood Pressure 95/52 L 94/53 L 92/53 L Pulse Oximetry 96 96 97 04/16/18 06:30 04/16/18 06:45 04/16/18 07:00 Temperature Pulse Rate 77 67 67 Respiratory Rate 22 17 17 Blood Pressure 93/50 L 100/50 L 102/55 L Pulse Oximetry 95 96 97 04/16/18 07:15 04/16/18 07:30 04/16/18 07:45 Temperature Pulse Rate 73 67 76 Respiratory Rate 19 16 42 H Blood Pressure 105/55 L 111/55 L 107/59 L Pulse Oximetry 94 L 97 97 04/16/18 08:00 04/16/18 08:15 04/16/18 08:30 Temperature 98.6 F Pulse Rate 73 80 75 Respiratory Rate 44 H 21 22 Blood Pressure 113/66 104/58 L 111/60 Pulse Oximetry 98 97 100 04/16/18 08:45 04/16/18 09:00 04/16/18 09:15 Temperature Pulse Rate 69 72 79 Respiratory Rate 22 23 16 Blood Pressure 118/64 123/66 108/61 Pulse Oximetry 100 100 100 04/16/18 09:31 04/16/18 09:45 04/16/18 10:00 Temperature Pulse Rate 84 78 96 H Respiratory Rate 26 H 25 H 28 H Blood Pressure 126/72 128/74 124/52 L Pulse Oximetry 100 100 99 04/16/18 10:15 04/16/18 10:30 04/16/18 10:45 Temperature Pulse Rate 81 71 71 Respiratory Rate 25 H 26 H 24 Blood Pressure 130/64 122/61 126/64 Pulse Oximetry 100 100 100 04/16/18 11:00 Temperature Pulse Rate 69 Respiratory Rate 26 H Blood Pressure 123/62 Pulse Oximetry Result Diagrams: 04/13/18 09:09 04/13/18 09:09 Imaging: Lung Biopsy CT 04/12/18 07:15 CONCLUSION: 1. Successful CT guided biopsy. Tunnelled Chest Tube Removal 04/13/18 15:55 CONCLUSION: 1. Uncomplicated left chest tube removal. Chest Tube Insertion 04/13/18 18:12 CONCLUSION: 1. Uncomplicated left chest tube placement as above. Chest Tube Change 04/14/18 00:00 CONCLUSION: 1. Uncomplicated chest tube exchange, repositioning and upsize as above. Chest CT 04/15/18 11:27 CONCLUSION: 1. Small left-sided chest tube in place and in good position. 2. Continues to be a small to moderate left-sided pneumothorax. Chest X-Ray 04/16/18 06:00 CONCLUSION: 1. Persistent left pneumothorax that is either stable to minimally increased in size from yesterday's examination. 2. Left upper lobe nodule remains visualized. Cardiovascular: RRR Pulmonary: CTA CT: minimal output - Plan (2) Lung cancer (3) COPD (chronic obstructive pulmonary disease) The patient has a persistent pneumothorax on suction and an upper lobe malignancy. I will discuss the possibility of VATS excisional biopsy of this mass and pleurodesis with Dr. Cottrell. Continue current care for now. (2) Lung cancer Qualifiers: Laterality: left Lung location: upper lobe of lung Qualified Code(s): C34.12 - Malignant neoplasm of upper lobe, left bronchus or lung (3) COPD (chronic obstructive pulmonary disease) Qualifiers: COPD type: emphysema Emphysema type: unspecified Qualified Code(s): J43.9 - Emphysema, unspecified
[2018-04-16] MEDS: ALPRAZolam 0.5 MG Tablet PO PRN (17:14)
--- NOTE | 2018-04-17 06:16 | XR ---
EXAM DATE: 04/17/2018 5:26 AM EDT AGE/SEX: 72 years / Female INDICATIONS: Shortness of breath, possible pulmonary disease. CLINICAL DATA: This is the patient's subsequent encounter. Patient reports that signs and symptoms h ave been present for 4 - 6 days and indicates a pain score of 0/10. MEDICAL/SURGICAL HISTORY: . Carcinoma, lung. Hypertension. Tonsillectomy. [place] [facility] [place]. . FINDINGS: A single AP view of the chest demonstrates hyperinflation with relatively clear lungs. Stable left ap ical pneumothorax. Left-sided chest tube in place. The cardiomediastinal contours are unremarkable. Osseous structures are intact. CONCLUSION: Stable left apical pneumothorax. Electronically signed by: Thad Hamilton MD 04/17/2018 6:15 AM EDT
[2018-04-17] MEDS: Calcium/Vitamin D 250/125 MG Tablet PO SCH (08:27)
[2018-04-17] MEDS: Atenolol 25 MG Tablet PO SCH ×2 (08:27→21:43)
[2018-04-17] MEDS: ALPRAZolam 0.5 MG Tablet PO PRN ×2 (10:30→21:42)
--- NOTE | 2018-04-17 10:37 | P.PNIM ---
Subjective Interval history: NO CP OR SOB. ASKING FOR HER DEPUTY DIRECTOR. Physical Exam Vital signs: Vital Signs 04/16/18 10:45 04/16/18 11:00 04/16/18 11:15 Temperature Pulse Rate 71 69 67 Respiratory Rate 24 26 H 24 Blood Pressure 126/64 123/62 124/62 Pulse Oximetry 100 100 04/16/18 11:30 04/16/18 11:45 04/16/18 12:00 Temperature 98.3 F Pulse Rate 68 68 68 Respiratory Rate 24 24 23 Blood Pressure 118/62 125/62 125/62 Pulse Oximetry 100 100 100 04/16/18 12:15 04/16/18 12:30 04/16/18 12:45 Temperature Pulse Rate 65 71 71 Respiratory Rate 20 17 28 H Blood Pressure 112/57 L 134/65 141/68 H Pulse Oximetry 100 100 100 04/16/18 13:00 04/16/18 13:15 04/16/18 13:30 Temperature Pulse Rate 71 70 67 Respiratory Rate 28 H 25 H 27 H Blood Pressure 133/66 126/61 125/60 Pulse Oximetry 100 100 100 04/16/18 13:45 04/16/18 14:00 04/16/18 14:05 Temperature Pulse Rate 68 73 69 Respiratory Rate 25 H 31 H 27 H Blood Pressure 125/62 115/59 L Pulse Oximetry 100 100 100 04/16/18 14:15 04/16/18 14:30 04/16/18 14:45 Temperature Pulse Rate 65 69 69 Respiratory Rate 26 H 28 H 28 H Blood Pressure 120/62 111/60 126/60 Pulse Oximetry 100 100 100 04/16/18 15:00 04/16/18 15:15 04/16/18 15:30 Temperature Pulse Rate 70 75 71 Respiratory Rate 25 H 29 H 26 H Blood Pressure 120/57 L 129/63 134/62 Pulse Oximetry 100 100 100 04/16/18 15:45 04/16/18 16:00 04/16/18 16:15 Temperature 98.5 F Pulse Rate 70 67 75 Respiratory Rate 24 28 H 23 Blood Pressure 129/59 L 121/58 L 127/59 L Pulse Oximetry 100 100 100 04/16/18 16:30 04/16/18 16:45 04/16/18 17:00 Temperature Pulse Rate 69 69 77 Respiratory Rate 26 H 26 H 27 H Blood Pressure 125/58 L 133/62 108/76 Pulse Oximetry 100 100 100 04/16/18 17:15 04/16/18 18:00 04/16/18 18:01 Temperature Pulse Rate 87 78 77 Respiratory Rate 37 H 30 H 32 H Blood Pressure 120/70 112/81 Pulse Oximetry 88 L 100 100 04/16/18 19:00 04/16/18 20:00 04/16/18 21:00 Temperature 98.5 F Pulse Rate 74 66 61 Respiratory Rate 27 H 23 20 Blood Pressure 112/54 L 113/55 L 126/60 Pulse Oximetry 100 100 100 04/16/18 22:00 04/16/18 23:00 04/17/18 00:00 Temperature 98.4 F Pulse Rate 61 60 62 Respiratory Rate 20 14 18 Blood Pressure 104/53 L 98/55 L 97/53 L Pulse Oximetry 100 100 100 04/17/18 01:00 04/17/18 02:00 04/17/18 03:00 Temperature Pulse Rate 64 59 L 58 L Respiratory Rate 21 18 16 Blood Pressure 81/53 L 121/62 110/58 L Pulse Oximetry 100 100 100 04/17/18 04:00 04/17/18 05:00 04/17/18 08:00 Temperature 98.6 F 98.6 F Pulse Rate 57 L 56 L 62 Respiratory Rate 20 23 18 Blood Pressure 114/61 121/60 119/59 L Pulse Oximetry 100 100 100 Intake & Output 04/16/18 04/17/18 04/17/18 18:59 06:59 18:59 Intake Total 720 / 720 200 / 200 Output Total 450 / 450 Balance 270 / 270 200 / 200 Weight 54.6 kg Intake: Oral 720 / 720 200 / 200 Output: Urine 450 / 450 Chest Tube Drainage 0 / 0 #1 Left Upper Anterior 0 / 0 Other: # Voids 1 Date of Last Bowel Movement 04/16/18 04/16/18 04/16/18 # Bowel Movements 1 LEFT CHEST TUBE. POSITIVE AIR LEAK NAD. ORIENTED NO EDEMA Results - Labs CBC & Chem 7: 04/13/18 09:09 04/13/18 09:09 - Imaging Impressions Chest X-Ray 04/17/18 06:00 CONCLUSION: Stable left apical pneumothorax. 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 - Pt was being evaluated in our interventional radiology department on 04/12/18 for a biopsy of a mass in the left lung. Pt follows with Dr. Petersen as an outpt - Pt developed a pneumothorax following the biopsy and a chest tube was placed by IR. - Pt is being admitted for monitoring and further management of the CT by IR. - Percocet PRN pain - IS - Supplemental O2 PRN initial chest tube removed with recurrent ptx on 04/13. replaced on 04/13 but peristent ptx on 04/14. chest tube adjustments made again to 10french on 04/14 by IR with resolution of ptx. now with persistent air leak and a small apical ptx again. called IR Dr Gonzalez and we performed CT chest on 04/[address] in correct position but small/mod ptx despite suction. discussed with beam builder helper and CTS Dr Diallo. Pt being monitored in ICU. no distress. 97% on room air but will place NRB. VATS being considered if no resolution. pathology positive for adenoca. await CTS decisions. repeat cxr stable apical ptx. still on -40 suction. HTN - Cont. home meds with parameters Hx of SCC of the right lung - Pt s/p RUL lobectomy [place] [address] Cottrell
--- NOTE | 2018-04-17 18:25 | MB ---
cc: Vanessa Cottrell MD DATE: 04/17/2018 HISTORY OF PRESENT ILLNESS: A 72-year-old patient known to our service, who underwent right robotic upper lobectomy with mediastinal lymph node on 11/02/2016, secondary to right upper lobe cancer. The histology was poorly differentiated squamous cell carcinoma. The vascular and bronchial resection margins were free of tumor. It was a pT1b pN0. She had a routine followup CT, which showed a new lesion in the left upper lobe. She was sent for PET scan at [place], which showed evidence of focal recurrence of the disease in the right mediastinal lymph node measuring 2 cm, and then also found a left upper lobe mass, moderately hypermetabolic, suspicious for contralateral recurrence of the malignancy. She underwent CT-guided biopsy on 04/12/2018 of the left lung mass, which showed poorly differentiated carcinoma, consistent with primary lung adenocarcinoma. We were consulted for possible resection. The patient developed a pneumothorax post CT-guided biopsy. She has had her third pigtail catheter placed. It is now in place at 40 cm suction. Her chest x-rays this morning showed a stable left pneumothorax. She was placed on a nonrebreather to assist with resolving the pneumothorax. Sats are 100%. PAST MEDICAL HISTORY: Includes lung cancer, status post right upper lobectomy; mediastinal lymph node 11/02/2016 with a poorly differentiated squamous cell cancer now with evidence of left-sided poorly differentiated carcinoma, consistent with primary lung adenocarcinoma. Dr. Cottrell will discuss with Dr. Petersen. Other history include hypertension, strabismus surgery, tonsillectomy. ALLERGIES: PENICILLIN. HOME MEDICATIONS: 1. Atenolol. 2. Lisinopril. 3. Lipitor. 4. Restoril as needed. FAMILY HISTORY: Two adopted children. SOCIAL HISTORY: A [id number] history, 1-1/2 pack a day. Drinks socially. 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 She is currently , lives alone. REVIEW OF SYSTEMS: As above in HPI, the 12-system unremarkable. PHYSICAL EXAMINATION: VITAL SIGNS: Blood pressure 130/60, heart rate is 74, O2 saturation 100% on a nonrebreather. GENERAL: She is awake, alert, in no acute distress. HEENT: Head is normocephalic, atraumatic. Pupils equal and reactive. Oral mucosa pink, moist. NECK: Supple. No JVD. CARDIOVASCULAR: Heart sounds S1, S2. Regular rate and rhythm. LUNGS: She is diminished on the left lower lobe. CHEST: She has a well-healed scar to the right posterior thorax. ABDOMEN: Soft, nontender. No masses or organomegaly. EXTREMITIES: No cyanosis, clubbing, or edema. LABORATORY DATA: Shows hemoglobin 12, hematocrit of 35, white cell count of 6.8, platelet count of 300. Sodium 138, potassium 4.1, BUN of 13, creatinine 0.80. MRSA screen non-detected. IMPRESSION: This is a patient with recent right upper lobectomy on 11/02 for poorly differentiated squamous cell cancer that revealed all vascular and bronchial resection margins free from tumor; however, she had a followup CT, now with a spiculated left upper lobe density with positive PET concerning for malignancy. PLAN: At this time, Dr. Cottrell will speak with Dr. Petersen in regard to further surgery and/or consulting oncology for possible radiation therapy and possible chemotherapy. Dictated by RAKESH Richard MD ANTOINETTE Malik/juana , 04:43 PM , 04:54 PM
--- NOTE | 2018-04-17 21:57 | MB ---
cc: Tobi Petersen MD,Mauricio Soliz MD DATE: 04/17/2018 REQUESTING PHYSICIAN: Mauricio Garcia MD REASON FOR CONSULTATION: Pulmonary management. HISTORY OF PRESENT ILLNESS: Ms. Valle is a pleasant 72-year-old female who is known to me from the office. She has history of COPD, squamous cell carcinoma of the right lung, status post robotic upper lobectomy with mediastinal lymph node. Her tumor was T1bN2. The patient was recently seen in the office. She had a CT scan of the chest done which showed a left upper lobe lesion. She had a PET scan done which was positive and she underwent a CT-guided biopsy. It shows that she has poorly differentiated adenocarcinoma consistent with a lung primary. The patient developed a pneumothorax. She has a chest tube in place. She is currently on a partial rebreather. Her oxygen saturation is 100%. She denies any pain. No fever or chills. No night sweats. PAST MEDICAL HISTORY: History of squamous cell carcinoma of the right lung, status post robotic right upper lobectomy, COPD, hypertension, tonsillectomy. MEDICATIONS: She is currently taking Xanax 0.5 mg q.8 hours p.r.n., atenolol 25 mg twice a day, Lipitor 40 mg a day, clonidine 0.1 mg p.r.n., oxycodone for pain, temazepam 15 mg at night. ALLERGIES: SHE IS ALLERGIC TO PENICILLIN. SOCIAL HISTORY: She has a 47-[id number] history of smoking. She drinks socially. 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 FAMILY HISTORY: She is and lives alone. REVIEW OF SYSTEMS: She denies any weight loss. No fever or chills. No night sweats. No hemoptysis. PHYSICAL EXAMINATION: GENERAL: Reveals a thin-built, elderly female, mildly short of breath, not in any acute distress. VITAL SIGNS: Blood pressure 139/65, heart rate 74, respirations 17, temperature 98.2. HEENT: Pupils are equal and reactive to light. Oral mucosa and nasal mucosa normal. NECK: Supple. No JVD noted. CHEST: She has left chest tube in place with no air leaks. CARDIOVASCULAR: S1, S2 normal. ABDOMEN: Benign. EXTREMITIES: No edema. IMPRESSION: 1. Pneumothorax, status post chest tube placement. 2. Chronic obstructive pulmonary disease. 3. Adenocarcinoma of the left lung, status post biopsy. 4. Squamous cell carcinoma of the right lung, status post robotic right upper lobectomy. 5. Anxiety disorder. 6. Hypertension. PLAN: I discussed with the patient. I will wean her to nasal cannula, continue her chest tube to suction, aerosol treatments and supplemental oxygen. We will check her baseline pulmonary function study and we will discuss with Dr. Fleming for further management and whether she needs surgical intervention or go with chemoradiation. Further treatment pending the course in the hospital. Thank you, Dr. Garcia, for this consult. MD ROBERT Braun/violette , 07:36 PM , 07:46 PM
[2018-04-18] MEDS: Temazepam 15 MG Capsule PO SCH ×2 (01:57→21:39)
--- NOTE | 2018-04-18 06:09 | XR ---
EXAM DATE: 04/18/2018 5:38 AM EDT AGE/SEX: 73 years / Female INDICATIONS: Short of breath. CLINICAL DATA: This is the patient's subsequent encounter. Patient reports that signs and symptoms h ave been present for 1 week and indicates a pain score of 0/10. MEDICAL/SURGICAL HISTORY: Carcinoma, lung. Hypertension. Tonsillectomy. COMPAR[place]: [facility] [place]ST 1V SINGLE AP, 04/17/2018. . FINDINGS: A single AP view of the chest demonstrates the lungs to be symmetrically aerated without evidence of mass, infiltrate or effusion. The cardiomediastinal contours are unremarkable. Osseous structures a re intact. Left-sided chest tube in the apex. No pneumothorax CONCLUSION: No pneumothorax. Electronically signed by: Thad Hamilton MD 04/18/2018 6:08 AM EDT
[2018-04-18] MEDS: Atenolol 25 MG Tablet PO SCH ×2 (08:33→21:39)
[2018-04-18] MEDS: Calcium/Vitamin D 250/125 MG Tablet PO SCH (08:33)
--- NOTE | 2018-04-18 12:48 | P.PNIM ---
Subjective Interval history: Follow up: adenocarcinoma, left pneumothorax, HTN Patient offers no new concerns/complaints at this time Physical Exam Vital signs: Vital Signs 04/17/18 13:00 04/17/18 14:00 04/17/18 15:00 Temperature Pulse Rate 72 86 76 Respiratory Rate 23 26 H 27 H Blood Pressure 136/67 135/68 152/68 H Pulse Oximetry 100 100 100 04/17/18 16:00 04/17/18 17:00 04/17/18 17:08 Temperature 98.2 F Pulse Rate 72 98 H 83 Respiratory Rate 22 33 H 30 H Blood Pressure 139/65 138/67 Pulse Oximetry 100 95 100 04/17/18 18:00 04/17/18 18:01 04/17/18 19:00 Temperature Pulse Rate 84 83 83 Respiratory Rate 26 H 31 H 30 H Blood Pressure 153/77 H Pulse Oximetry 100 100 100 04/17/18 19:01 04/17/18 20:00 04/17/18 21:00 Temperature 98.4 F Pulse Rate 82 82 69 Respiratory Rate 34 H 25 H 23 Blood Pressure 132/75 148/70 H 142/69 H Pulse Oximetry 95 100 100 04/17/18 22:00 04/17/18 23:00 04/18/18 00:00 Temperature 97.8 F Pulse Rate 73 78 73 Respiratory Rate 23 24 23 Blood Pressure 128/60 115/58 L 124/62 Pulse Oximetry 100 100 100 04/18/18 01:00 04/18/18 02:00 04/18/18 03:00 Temperature Pulse Rate 68 73 72 Respiratory Rate 17 27 H 17 Blood Pressure 100/53 L 112/63 87/54 L Pulse Oximetry 100 100 100 04/18/18 04:00 04/18/18 08:00 04/18/18 09:43 Temperature 97.9 F 97.9 F Pulse Rate 72 78 Respiratory Rate 18 17 Blood Pressure 95/52 L 123/57 L Pulse Oximetry 100 100 100 Intake & Output 04/17/18 04/18/18 04/18/18 18:59 06:59 18:59 Intake Total 600 / 600 400 / 400 Output Total 1256 / 1256 Balance -656 / -656 400 / 400 Weight 54.8 kg Intake: Oral 600 / 600 400 / 400 Output: Urine 1250 / 1250 Chest Tube Drainage 6 / 6 #1 Left Upper Anterior 6 / 6 Other: # Voids 0 Date of Last Bowel Movement 04/16/18 04/16/18 04/16/18 # Bowel Movements 0 0 Narrative: GENERAL: This is a 73 year old female A&O CARDIOVASCULAR: Regular rate and rhythm RESPIRATORY: Clear to auscultation. left chest tube to 40cm suction GASTROINTESTINAL: Abdomen soft, non-tender, nondistended. Normal active bowel sounds MUSCULOSKELETAL: Extremities without clubbing, cyanosis, or edema. NEURO: Alert & Oriented x4 to person, place, time, situation. Moves all ext x4 Results - Labs CBC & Chem 7: 04/13/18 09:09 04/13/18 09:09 - Imaging Impressions Chest X-Ray 04/18/18 06:00 CONCLUSION: No pneumothorax. 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 - Pt was being evaluated in our interventional radiology department on 04/12/18 for a biopsy of a mass in the left lung. Pt follows with Dr. Petersen as an outpt - Pt developed a pneumothorax following the biopsy and a chest tube was placed by IR. - Pt is being admitted for monitoring and further management of the CT by IR. - Percocet PRN pain - IS - Supplemental O2 PRN - initial chest tube removed with recurrent ptx on 04/13. replaced on 04/13 but peristent ptx on 04/14. chest tube adjustments made again to 10french on 04/14 by IR with resolution of ptx. now with persistent air leak and a small apical ptx again. Dr. Pina called IR Dr Gonzalez and we performed CT chest on 04/[address] in correct position but small/mod ptx despite suction. discussed with aqua ammonia operator and CTS Dr Diallo(covering for Dr. Cottrell). Pt being monitored in ICU. no distress. 97% on room air but will place NRB. VATS being considered if no resolution. pathology revealed: LEFT LUNG MASS, CT GUIDED NEEDLE CORE BIOPSY: POORLY DIFFERENTIATED CARCINOMA, CONSISTENT WITH PRIMARY LUNG ADENOCARCINOMA. repeat cxr 04/18 reported no pneumothorax still on -40 suction. patient also being followed by pulmonology Dr. Petersen and CT surgery Dr. Cottrell, await CTS decisions. HTN - Cont. home meds with parameters Hx of SCC of the right lung - Pt s/p RUL lobectomy [place] [address] Cottrell - Attending Attestation Patient examined. Assessment and plan formulated with Teresita Still PA-C. I agree with the above.
--- NOTE | 2018-04-18 19:06 | P.PNPL ---
Subjective Interval history: 73 YOWF with ca lung, s/p bx, PTX Weaned to NC Chest tube to suction Breathing better Physical Exam Vital signs: Vital Signs 04/17/18 20:00 04/17/18 21:00 04/17/18 22:00 Temperature 98.4 F Pulse Rate 82 69 73 Respiratory Rate 25 H 23 23 Blood Pressure 148/70 H 142/69 H 128/60 Pulse Oximetry 100 100 100 04/17/18 23:00 04/18/18 00:00 04/18/18 01:00 Temperature 97.8 F Pulse Rate 78 73 68 Respiratory Rate 24 23 17 Blood Pressure 115/58 L 124/62 100/53 L Pulse Oximetry 100 100 100 04/18/18 02:00 04/18/18 03:00 04/18/18 04:00 Temperature 97.9 F Pulse Rate 73 72 72 Respiratory Rate 27 H 17 18 Blood Pressure 112/63 87/54 L 95/52 L Pulse Oximetry 100 100 100 04/18/18 08:00 04/18/18 09:43 04/18/18 12:00 Temperature 97.9 F Pulse Rate 78 75 Respiratory Rate 17 16 Blood Pressure 123/57 L 122/66 Pulse Oximetry 100 100 100 04/18/18 16:00 Temperature 98.1 F Pulse Rate 77 Respiratory Rate 16 Blood Pressure 150/79 H Pulse Oximetry 100 Intake & Output 04/18/18 04/18/18 04/19/18 06:59 18:59 06:59 Intake Total 400 / 400 720 / 720 Output Total 1000 / 1000 Balance 400 / 400 -280 / -280 Weight 54.8 kg Intake: Oral 400 / 400 720 / 720 Output: Urine 1000 / 1000 Other: # Voids 0 Date of Last Bowel Movement 04/16/18 04/18/18 # Bowel Movements 0 1 GENERAL: Elderly WF NAD SKIN: Warm and dry. HEAD: Normocephalic. EYES: No scleral icterus. No injection or drainage. NECK: Supple, trachea midline. No JVD or lymphadenopathy. CARDIOVASCULAR: Regular rate and rhythm without murmurs, gallops, or rubs. RESPIRATORY: Breath sounds equal bilaterally. No accessory muscle use. Left chat tube to suction GASTROINTESTINAL: Abdomen soft, non-tender, nondistended. MUSCULOSKELETAL: No cyanosis, or edema. BACK: Nontender without obvious deformity. No CVA tenderness. Assessment and Plan - Plan IMPRESSION: 1. Pneumothorax, status post chest tube placement. 2. Chronic obstructive pulmonary disease. 3. Adenocarcinoma of the left lung, status post biopsy. 4. Squamous cell carcinoma of the right lung, status post robotic right upper lobectomy. 5. Anxiety disorder. 6. Hypertension. PLAN: Chest tube to suction Supplement 02 Aerosol nebs CXR in AM
[2018-04-18] MEDS: ALPRAZolam 0.5 MG Tablet PO PRN (19:47)
[2018-04-19] MEDS: Calcium/Vitamin D 250/125 MG Tablet PO SCH (09:02)
[2018-04-19] MEDS: Atenolol 25 MG Tablet PO SCH ×2 (09:03→21:41)
--- NOTE | 2018-04-19 14:12 | XR ---
EXAM DATE: 04/19/2018 2:05 PM EDT AGE/SEX: 73 years / Female INDICATIONS: Evaluate pneumothorax. CLINICAL DATA: This is the patient's initial encounter. Patient reports that signs and symptoms have been present for 4 - 6 days and indicates a pain score of 2/10. MEDICAL/SURGICAL HISTORY: . Carcinoma, lung. Chronic obstructive pulmonary disease. . COMPARISON: [facility] [place], 04/14/2018. . FINDINGS: Left apical pigtail thoracostomy tube remains in place. There is no evidence of pneumothorax. Lungs r emain symmetrically aerated and grossly clear. Cardiac contours are stable and satisfactory. CONCLUSION: No pneumothorax Electronically signed by: Chava Carballo MD 04/19/2018 2:11 PM EDT
--- NOTE | 2018-04-19 15:02 | P.PNCV ---
- Note Subjective/Hospital Course: Patient known to Dr. Cottrell s/p lobectomy for lung cancer. She recently underwent percutaneous biopsy for a new left lung lesion complicated by pneumothorax. She has has ~2 catheters placed by IR with a residual left pneumothorax. She currently is stable with no complaints. 04/16/18 No complaints today. CXR shows stable left apical PTX. She has what appears to be a primary adenocarcinoma of the left upper lobe. 72-year-old patient known to our service, who underwent right robotic upper lobectomy with mediastinal lymph node on 11/02/2016, secondary to right upper lobe cancer. The histology was poorly differentiated squamous cell carcinoma. The vascular and bronchial resection margins were free of tumor. It was a pT1b pN0. She had a routine followup CT, which showed a new lesion in the left upper lobe. She was sent for PET scan at [place], which showed evidence of focal recurrence of the disease in the right mediastinal lymph node measuring 2 cm, and then also found a left upper lobe mass, moderately hypermetabolic, suspicious for contralateral recurrence of the malignancy. She underwent CT- guided biopsy on 04/12/2018 of the left lung mass, which showed poorly differentiated carcinoma, consistent with primary lung adenocarcinoma. We were consulted for possible resection. The patient developed a pneumothorax post CT-guided biopsy. She has had her third pigtail catheter placed. It is now in place at 40 cm suction. Her chest x-rays this morning showed a stable left pneumothorax. She was placed on a nonrebreather to assist with resolving the pneumothorax. Sats are 100%. PAST MEDICAL HISTORY: Includes lung cancer, status post right upper lobectomy; mediastinal lymph node 11/02/2016 with a poorly differentiated squamous cell cancer now with evidence of left-sided poorly differentiated carcinoma, consistent with primary lung adenocarcinoma. 04/19 PFT noted, Dr Lockhart discussed options with pt and Dr Petersen / since pt has focal recurrence of the disease in right mediastinal lymph node , and now a left upper lobe mass BX proven POORLY DIFFERENTIATED CARCINOMA, CONSISTENT WITH PRIMARY LUNG ADENOCARCINOMA they have discussed involving Oncology and evaluation for adjuvant therapy ( radiation / chemo) no surgical intervention at this time Objective: Vital Signs - 24 hr 04/18/18 15:00 04/18/18 16:00 04/18/18 17:00 Temperature 98.1 F Pulse Rate 71 75 74 Respiratory Rate 28 H 22 28 H Blood Pressure 128/68 150/79 H Pulse Oximetry 100 100 100 04/18/18 17:04 04/18/18 18:00 04/18/18 19:00 Temperature Pulse Rate 74 72 87 Respiratory Rate 27 H 24 25 H Blood Pressure 145/67 H 161/77 H Pulse Oximetry 100 100 99 04/18/18 19:01 04/18/18 19:33 04/18/18 20:00 Temperature 98.3 F Pulse Rate 94 H 83 81 Respiratory Rate 30 H 27 H 27 H Blood Pressure 176/83 H 139/74 131/63 Pulse Oximetry 87 L 100 100 04/18/18 20:02 04/18/18 20:35 04/18/18 21:00 Temperature Pulse Rate 79 77 Respiratory Rate 30 H 28 H Blood Pressure 131/63 Pulse Oximetry 100 95 95 04/18/18 21:01 04/18/18 22:00 04/18/18 23:00 Temperature Pulse Rate 76 77 78 Respiratory Rate 21 25 H 22 Blood Pressure 131/67 130/62 114/59 L Pulse Oximetry 98 99 100 04/19/18 00:00 04/19/18 01:00 04/19/18 02:00 Temperature 98.2 F Pulse Rate 75 74 72 Respiratory Rate 13 21 21 Blood Pressure 113/55 L 84/50 L 102/56 L Pulse Oximetry 100 100 98 04/19/18 03:00 04/19/18 04:00 04/19/18 05:00 Temperature 98.1 F Pulse Rate 72 71 69 Respiratory Rate 17 20 19 Blood Pressure 89/54 L 126/71 96/60 L Pulse Oximetry 96 95 95 04/19/18 06:00 04/19/18 06:12 04/19/18 08:00 Temperature 98.6 F Pulse Rate 73 77 84 Respiratory Rate 18 16 15 Blood Pressure 93/52 L 115/58 L Pulse Oximetry 97 96 100 04/19/18 11:26 04/19/18 12:00 Temperature Pulse Rate 83 Respiratory Rate 16 Blood Pressure 147/71 H Pulse Oximetry 96 98 Result Diagrams: 04/13/18 09:09 04/13/18 09:09 - Plan (2) Lung cancer (3) COPD (chronic obstructive pulmonary disease) (2) Lung cancer Qualifiers: Laterality: left Lung location: upper lobe of lung Qualified Code(s): C34.12 - Malignant neoplasm of upper lobe, left bronchus or lung (3) COPD (chronic obstructive pulmonary disease) Qualifiers: COPD type: emphysema Emphysema type: unspecified Qualified Code(s): J43.9 - Emphysema, unspecified
[2018-04-19] MEDS: ALPRAZolam 0.5 MG Tablet PO PRN (17:17)
--- NOTE | 2018-04-19 17:47 | P.PNIM ---
Subjective Interval history: Follow up: adenocarcinoma, left pneumothorax, HTN Patient offers no new concerns/complaints at this time Physical Exam Vital signs: Vital Signs 04/18/18 18:00 04/18/18 19:00 04/18/18 19:01 Temperature Pulse Rate 72 87 94 H Respiratory Rate 24 25 H 30 H Blood Pressure 161/77 H 176/83 H Pulse Oximetry 100 99 87 L 04/18/18 19:33 04/18/18 20:00 04/18/18 20:02 Temperature 98.3 F Pulse Rate 83 81 79 Respiratory Rate 27 H 27 H 30 H Blood Pressure 139/74 131/63 131/63 Pulse Oximetry 100 100 100 04/18/18 20:35 04/18/18 21:00 04/18/18 21:01 Temperature Pulse Rate 77 76 Respiratory Rate 28 H 21 Blood Pressure 131/67 Pulse Oximetry 95 95 98 04/18/18 22:00 04/18/18 23:00 04/19/18 00:00 Temperature 98.2 F Pulse Rate 77 78 75 Respiratory Rate 25 H 22 13 Blood Pressure 130/62 114/59 L 113/55 L Pulse Oximetry 99 100 100 04/19/18 01:00 04/19/18 02:00 04/19/18 03:00 Temperature Pulse Rate 74 72 72 Respiratory Rate 21 21 17 Blood Pressure 84/50 L 102/56 L 89/54 L Pulse Oximetry 100 98 96 04/19/18 04:00 04/19/18 05:00 04/19/18 06:00 Temperature 98.1 F Pulse Rate 71 69 73 Respiratory Rate 20 19 18 Blood Pressure 126/71 96/60 L Pulse Oximetry 95 95 97 04/19/18 06:12 04/19/18 08:00 04/19/18 11:26 Temperature 98.6 F Pulse Rate 77 84 Respiratory Rate 16 15 Blood Pressure 93/52 L 115/58 L Pulse Oximetry 96 100 96 04/19/18 12:00 04/19/18 16:00 Temperature 98.4 F Pulse Rate 83 85 Respiratory Rate 16 15 Blood Pressure 147/71 H 146/74 H Pulse Oximetry 98 99 Intake & Output 04/18/18 04/19/18 04/19/18 18:59 06:59 18:59 Intake Total 720 / 720 320 / 320 Output Total 1000 / 1000 0 / 0 Balance -280 / -280 320 / 320 Weight 55.8 kg Intake: Oral 720 / 720 320 / 320 Output: Urine 1000 / 1000 Chest Tube Drainage 0 / 0 #1 Left Upper Anterior 0 / 0 Other: # Voids 1 Date of Last Bowel Movement 04/18/18 04/18/18 04/18/18 # Bowel Movements 1 Narrative: GENERAL: This is a 73 year old female A&O CARDIOVASCULAR: Regular rate and rhythm RESPIRATORY: Clear to auscultation. left chest tube in place GASTROINTESTINAL: Abdomen soft, non-tender, nondistended. Normal active bowel sounds MUSCULOSKELETAL: Extremities without clubbing, cyanosis, or edema. NEURO: Alert & Oriented x4 to person, place, time, situation. 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 - Pt was being evaluated in our interventional radiology department on 04/12/18 for a biopsy of a mass in the left lung. Pt follows with Dr. Petersen as an outpt - Pt developed a pneumothorax following the biopsy and a chest tube was placed by IR. - Pt is being admitted for monitoring and further management of the CT by IR. - Percocet PRN pain - IS - Supplemental O2 PRN - initial chest tube removed with recurrent ptx on 04/13. replaced on 04/13 but peristent ptx on 04/14. chest tube adjustments made again to 10french on 04/14 by IR with resolution of ptx. now with persistent air leak and a small apical ptx again. Dr. Pina called IR Dr Gonzalez and we performed CT chest on 04/[address] in correct position but small/mod ptx despite suction. discussed with property utilization manager and CTS Dr Diallo(covering for Dr. Cottrell). Pt being monitored in ICU. no distress. 97% on room air but will place NRB. VATS being considered if no resolution. pathology revealed: LEFT LUNG MASS, CT GUIDED NEEDLE CORE BIOPSY: POORLY DIFFERENTIATED CARCINOMA, CONSISTENT WITH PRIMARY LUNG ADENOCARCINOMA. repeat cxr 04/19 reported no pneumothorax patient also being followed by pulmonology Dr. Petersen and CT surgery Dr. Cottrell Per [facility] notes: Since pt has focal recurrence of the disease in right mediastinal lymph node, and now a left upper lobe mass BX proven. no surgical intervention at this time Consult Oncology for evaluation for adjuvant therapy ( radiation / chemo) HTN - Cont. home meds with parameters Hx of SCC of the right lung - Pt s/p RUL lobectomy [place] [address] Cottrell May transfer to oncology floor, patient no longer requiring ICU - Attending Attestation Patient examined. Assessment and plan formulated with Teresita Still PA-C. I agree with the above.
--- NOTE | 2018-04-19 18:49 | MB ---
cc: Danish Smith MD,Mauricio Soliz MD DATE: 04/19/2018 CONSULTING: Dr. Garcia. REASON FOR CONSULTATION: Oncology concern. The patient has recurrent lung cancer. HISTORY OF PRESENT ILLNESS: The patient is a very pleasant 73-year-old female with about a [id number] smoking history, admitted to the hospital after she developed a pneumothorax due to biopsy of left lung mass. She had history of stage I-B squamous cell carcinoma. Underwent right upper lobectomy 10/[address] Cottrell. She has been followed by Dr. Petersen. Reportedly, a CT scan around 03/2018 showed a new left upper lobe lung mass. She subsequently had a PET scan which confirmed the lung mass with mediastinal adenopathy. She underwent a biopsy of left lung mass on 04/12, but developed a pneumothorax after the procedure and was admitted. She denies having any pulmonary symptoms before the biopsy. She denies constitutional symptoms. Denies chest pain, palpitation, shortness of breath, cough. Denies any nausea, vomiting, or abdominal pain. PAST MEDICAL HISTORY: 1. Right lung squamous-cell carcinoma. 2. Hypertension. 3. Hyperlipidemia. PAST SURGICAL HISTORY: 1. Right upper lobectomy. 2. Eye surgery. 3. Tonsillectomy. FAMILY HISTORY: Mother and one sister of COPD. She has 2 adopted children. SOCIAL HISTORY: Smoked 1 to 1-1/2 packs a day for 50 years, quit 06/2016. She drinks occasionally. ALLERGIES: PENICILLIN. CURRENT MEDICATIONS: 1. Atenolol. 2. Lipitor. 3. Calcium. 4. Multivitamin. 5. Restoril. REVIEW OF SYSTEMS: CONSTITUTIONAL: Negative. EYES: Negative. ENT: Negative. CARDIOVASCULAR: As above. RESPIRATORY: As above. GASTROINTESTINAL: Negative. GENITOURINARY: Negative. MUSCULOSKELETAL: Negative. HEMATOLOGY: Negative. ENDOCRINE: Negative. DERMATOLOGY: Negative. PSYCHIATRIC: Negative. NEUROLOGIC: Negative. PHYSICAL EXAMINATION: VITAL SIGNS: Temperature 98.4, blood pressure 146/74, O2 saturation 99% on room air. GENERAL: She is alert, oriented x3, in no acute distress. HEENT: Atraumatic, normocephalic. Pupils equal, round, reactive to light. Extraocular muscles are intact. No scleral icterus. Oropharynx dry mucosa. No lesion, no thrush. NECK: No thyromegaly. No palpable mass. LYMPHATIC: No palpable cervical, clavicular, or axillary nodes. CARDIOVASCULAR: Regular S1, S2. No murmur. LUNGS: Clear to auscultation bilaterally. ABDOMEN: Soft, nontender. I could not palpate liver or spleen. EXTREMITIES: No cyanosis, no edema, no calf tenderness. BACK: No paravertebral tenderness. SKIN: No rash or petechiae. NEUROLOGIC: Nonfocal. CHEST WALL: Showed a left chest tube noted. LABORATORY DATA: 04/13/2018 was reviewed. ASSESSMENT AND PLAN: 1. Left lung non-small cell carcinoma which appeared to be a second primary rather than recurrent lung cancer. She has a history of right lung squamous cell carcinoma, status post right upper lobectomy 10/2016. She recently noted to have left upper lobe nodule. PET scan on 03/29 showed a small new left upper lobe hypermetabolic nodule with a right mediastinal hypermetabolic lymph node measuring about 2 cm. She underwent biopsy of the left lung nodule and pathology showed a poorly-differentiated adenocarcinoma positive for TTF-1 consistent with lung primary. I have reviewed her PET scan and there is no evidence of distant metastasis; however, there is a hypermetabolic right mediastinal lymph node. Clinically, this is a stage III-A non-small cell lung cancer. The patient has been evaluated by Dr. Cottrell and no surgery is offered at this time. I had an extensive discussion with the patient and her friend regarding the diagnosis, staging, prognosis, and treatment options. Recommend treating her with concurrent chemotherapy and radiation. We could also give her consolidation chemotherapy. She tolerated the concurrent therapy well. She has many questions today, which were answered. I am going to consult the radiation oncologist to see her. I told her to follow up with the oncology clinic after discharge. She is going to also need a port placement for chemotherapy administration, but that can be done as outpatient. 2. Left lung pneumothorax. A chest tube is still in place. 3. Hypertension. 4. History of right lung squamous cell carcinoma, status post right upper lobectomy 10/2016. Pathologic stage T1b. 5. Hyperlipidemia. RECOMMENDATIONS: 1. Extensive discussion with the patient as above. 2. Consult radiation oncology. 3. I told the patient to follow up with oncology clinic after discharge. Thank you, Dr. Garcia, for asking me to see this patient. MD Liudmila Reese , 05:10 PM , 05:25 PM VIRAJ
--- NOTE | 2018-04-19 19:42 | P.PNPL ---
Subjective Interval history: 73 YOWF with ca lung, s/p bx, PTX Weaned to NC Chest tube to water seal DW Breathing better Physical Exam Vital signs: Vital Signs 04/18/18 20:00 04/18/18 20:02 04/18/18 20:35 Temperature 98.3 F Pulse Rate 81 79 Respiratory Rate 27 H 30 H Blood Pressure 131/63 131/63 Pulse Oximetry 100 100 95 04/18/18 21:00 04/18/18 21:01 04/18/18 22:00 Temperature Pulse Rate 77 76 77 Respiratory Rate 28 H 21 25 H Blood Pressure 131/67 130/62 Pulse Oximetry 95 98 99 04/18/18 23:00 04/19/18 00:00 04/19/18 01:00 Temperature 98.2 F Pulse Rate 78 75 74 Respiratory Rate 22 13 21 Blood Pressure 114/59 L 113/55 L 84/50 L Pulse Oximetry 100 100 100 04/19/18 02:00 04/19/18 03:00 04/19/18 04:00 Temperature 98.1 F Pulse Rate 72 72 71 Respiratory Rate 21 17 20 Blood Pressure 102/56 L 89/54 L 126/71 Pulse Oximetry 98 96 95 04/19/18 05:00 04/19/18 06:00 04/19/18 06:12 Temperature Pulse Rate 69 73 77 Respiratory Rate 19 18 16 Blood Pressure 96/60 L 93/52 L Pulse Oximetry 95 97 96 04/19/18 08:00 04/19/18 11:26 04/19/18 12:00 Temperature 98.6 F Pulse Rate 84 83 Respiratory Rate 15 16 Blood Pressure 115/58 L 147/71 H Pulse Oximetry 100 96 98 04/19/18 16:00 Temperature 98.4 F Pulse Rate 85 Respiratory Rate 15 Blood Pressure 146/74 H Pulse Oximetry 99 Intake & Output 04/19/18 04/19/18 04/20/18 06:59 18:59 06:59 Intake Total 320 / 320 460 / 460 Output Total 0 / 0 Balance 320 / 320 460 / 460 Weight 55.8 kg Intake: Oral 320 / 320 460 / 460 Output: Chest Tube Drainage 0 / 0 #1 Left Upper Anterior 0 / 0 Other: # Voids 1 3 Date of Last Bowel Movement 04/18/18 04/19/18 # Bowel Movements 1 GENERAL: Elderly WF,NAD SKIN: Warm and dry. HEAD: Normocephalic. EYES: No scleral icterus. No injection or drainage. NECK: Supple, trachea midline. No JVD or lymphadenopathy. CARDIOVASCULAR: Regular rate and rhythm without murmurs, gallops, or rubs. RESPIRATORY: Breath sounds equal bilaterally. No accessory muscle use. Left Chest tube on water seal GASTROINTESTINAL: Abdomen soft, non-tender, nondistended. MUSCULOSKELETAL: No cyanosis, or edema. BACK: Nontender without obvious deformity. No CVA tenderness. Assessment and Plan - Plan IMPRESSION: 1. Pneumothorax, status post chest tube placement. 2. Chronic obstructive pulmonary disease. 3. Adenocarcinoma of the left lung, status post biopsy. 4. Squamous cell carcinoma of the right lung, status post robotic right upper lobectomy. 5. Anxiety disorder. 6. Hypertension. PLAN: Chest tube to water seal Supplement 02 Aerosol nebs CXR in AM MARKELL GUILLAUME Pt and her daughter planning chemo
[2018-04-19] MEDS: Temazepam 15 MG Capsule PO SCH (21:41)
--- NOTE | 2018-04-20 08:34 | P.CON ---
History of Present Illness Service: Radiation oncology Consult date: 04/20/18 Requesting Physician: Danish Smith Reason for Consult: Patient being evaluated for possible wrist therapy treatment options. 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 On follow-up by Dr. Petersen, she was found to have a new left lung mass. As a result of this a PET scan was performed which detected positivity within the mass as well as mediastinal lymph nodes. Patient has been evaluated by Dr. Cottrell for possible surgical resection, but due to mediastinal lymph nodes no surgery has been recommended. Patient has been recently evaluated by Dr. Smith, and recommended to undergo concomitant chemoradiotherapy. Patient had a recent a pulmonary function test which is not available to me at the present time. Patient underwent biopsy with a pneumothorax and has a chest tube in place. A consult has been requested for discussion of her therapy treatment options for cure Review of Systems Constitutional: Reports anorexia, Reports fatigue, Reports lack of energy, Reports weight loss Eyes: Denies blind spots, Denies blurry vision, Denies bulging eyes, Denies change in vision, Denies double vision, Denies discharge, Denies dry eyes, Denies floaters, Denies irritation, Denies itchy eyes, Denies loss of vision, Denies pain, Denies requires corrective lenses, Denies sensitivity to light, Denies other Ears, Nose, Mouth, and Throat: Denies abnormal hearing, Denies bleeding gums, Denies bad breath, Denies change in voice, Denies dental pain, Denies difficulty swallowing, Denies dizziness, Denies dry mouth, Denies ear discharge , Denies ear pain, Denies facial pain, Denies headache(s), Denies hearing loss, Denies hoarseness, Denies lip swelling, Denies nosebleed, Denies mouth lesions, Denies mouth pain, Denies nasal congestion, Denies nasal discharge, Denies nasal obstruction, Denies nasal trauma, Denies neck lump, Denies neck pain, Denies nose pain, Denies pain with swallowing, Denies poor balance, Denies post nasal drip, Denies ringing in the ears, Denies sinus pain, Denies sinus pressure , Denies sore throat, Denies throat swelling, Denies tongue swelling, Denies other Cardiovascular: Denies chest pain, Denies chest pain at rest, Denies chest pain with activity, Denies excessive sweating, Denies fainting, Denies fast heart rate, Denies foot swelling, Denies generalized swelling, Denies irregular heart rhythm, Denies leg pain with activity, Denies leg sores, Denies leg swelling, Denies lightheadedness, Denies radiating jaw, neck or arm pain, Denies rapid, pounding, or irregular heartbeat, Denies shortness of breath, Denies shortness of breath with activity, Denies shortness of breath when lying down, Denies shortness of breath causing sudden awakening, Denies slow heart rate, Denies other Respiratory: Denies change in phlegm color, Denies chest congestion, Denies cough, Denies coughing up blood, Denies excessive phlegm production, Denies pain on inspiration, Denies pain with cough, Denies shortness of breath, Denies shortness of breath with activity, Denies snoring, Denies stridor, Denies wheezing, Denies other Gastrointestinal: Denies abdominal pain, Denies belching, Denies black, tarry stools, Denies bloating, Denies bright, red blood in stools, Denies change in bowel habits, Denies constant urge to pass stool, Denies change in stools, Denies coffee ground vomit, Denies constipation, Denies cramping, Denies difficulty swallowing, Denies excessive passing of gas, Denies feeling full early, Denies heartburn, Denies incontinent of stools, Denies loose stools, Denies nausea, Denies pain with swallowing, Denies vomiting, Denies vomiting blood, Denies other Genitourinary: Denies abnormal periods, Denies abnormal vaginal bleeding, Denies absent period, Denies bleeding between periods, Denies blood in urine, Denies difficulty starting urination, Denies difficulty urinating, Denies dribbling after urination, Denies frequent nighttime urination, Denies genital itching, Denies genital lesions, Denies heavy periods, Denies hot flashes, Denies light periods, Denies nipple discharge, Denies painful intercourse, Denies painful periods, Denies painful urination, Denies pelvic pain, Denies prolapse symptoms, Denies sexual problems, Denies side pain, Denies urinary incontinence, Denies urinary urgency, Denies vaginal discharge, Denies vaginal dryness, Denies vaginal odor, Denies vaginal itching, Denies other Musculoskeletal: Denies abnormal walking, Denies back pain, Denies body aches, Denies decreased muscle mass, Denies deformity, Denies joint pain, Denies joint swelling, Denies limited joint movement, Denies loss of height, Denies muscle cramps, Denies muscle weakness, Denies neck pain, Denies numbness, Denies radiating pain into limb, Denies stiffness, Denies tingling, Denies other Skin/Breast: Denies acne, Denies bleeding lesions, Denies boil, Denies breast swelling, Denies breast skin changes, Denies breast pain, Denies breast lump, Denies change in breast shape, Denies change in hair, Denies change in skin color, Denies changing lesions, Denies dry skin, Denies excessive hair growth, Denies hair loss, Denies itching, Denies lesions, Denies nail changes, Denies new lesions, Denies nipple discharge, Denies non-healing lesions, Denies redness , Denies sensitivity to light, Denies rash, Denies skin pain, Denies skin ulcer , Denies sores, Denies stretch cordero, Denies unusual bruising, Denies wounds, Denies yellowing of the skin, Denies other Neurologic: Denies abnormal hearing, Denies abnormal movements, Denies abnormal speech, Denies abnormal walking, Denies behavioral changes, Denies burning sensations, Denies confusion, Denies dizziness, Denies fainting, Denies frequent falls, Denies headache(s), Denies lack of coordination, Denies localized weakness, Denies loss of vision, Denies memory loss, Denies numbness, Denies other visual disturbances, Denies radiating pain, Denies restless legs, Denies convulsions, Denies seizure-like activity, Denies sensory deficit, Denies tingling, Denies tingling/numbness/burning sensations, Denies tremor(s), Denies unsteadiness, Denies weakness, Denies other Psychiatric: Denies abnormal sleep pattern, Denies anxiety, Denies behavioral changes, Denies change in appetite, Denies change in sex drive, Denies confusion , Denies depression, Denies difficulty concentrating, Denies hearing things others do not hear, Denies hopelessness, Denies irritability, Denies lack of enjoyment, Denies memory loss, Denies mood swings, Denies panic attacks, Denies paranoia, Denies seeing things others do not see, Denies sensing things others do not sense, Denies tactile hallucinations, Denies thoughts of hurting/killing others, Denies thoughts of hurting/killing yourself, Denies other Endocrine: Denies cold intolerance, Denies excessive sweating, Denies flushing, Denies heat intolerance, Denies increased hunger, Denies increased thirst, Denies increased urination, Denies rapid, pounding, or irregular heartbeat, Denies other Hematologic/Lymphatic: Denies easy bleeding, Denies easy bruising, Denies enlarged lymph nodes, Denies other Allergic/Immunologic: Denies GI upset with certain foods, Denies hives, Denies itchy eyes, Denies lip swelling, Denies seasonal runny nose, Denies throat swelling, Denies tongue swelling, Denies wheezing, Denies other PMFSH - History History Provided By: Patient - Medical History Medical History: Medical History (Last Updated 04/14/18 @ 09:21 by Veronica Bustos RN) COPD (chronic obstructive pulmonary disease) Lung cancer - Tobacco History Second Hand Smoke Exposure: No Tobacco Use In Past 30 Days: No Smoking Status: Former smoker Tobacco Type: Cigarettes - Alcohol History How Often Do You Have a Drink Containing Alcohol: 2 to 3 times a week - Substance Use History Substance History: No History of Abuse - Immunization History Tetanus Immunization: Unsure Hx Influenza Vaccine This Season: No Medications and Allergies Active Medications: Active Medications Alprazolam (Xanax) 0.5 mg PO Q8H PRN PRN Reason: ANXIETY Last Admin: 04/19/18 17:17 Dose: 0.5 mg Atenolol (Tenormin) 25 mg PO BID [facility] Last Admin: 04/19/18 21:41 Dose: Not Given Atorvastatin Calcium (Lipitor) 40 mg PO DAILY [facility] Last Admin: 04/19/18 09:02 Dose: 40 mg Calcium/Vitamin D (Oscal With D 250/125 Mg) 2 tab PO DAILY [facility] Last Admin: 04/19/18 09:02 Dose: 2 tab Clonidine HCl (Catapres) 0.1 mg PO Q6H PRN PRN Reason: sbp > 170 Last Admin: 04/15/18 14:10 Dose: 0.1 mg Multivitamins (Theragran) 1 tab PO DAILY [facility] Last Admin: 04/19/18 09:02 Dose: 1 tab Oxycodone/Acetaminophen (Percocet 5/325 Mg) 1 tab PO Q4H PRN PRN Reason: PAIN SCALE 6 TO 10 Last Admin: 04/14/18 21:34 Dose: 1 tab Temazepam (Restoril) 15 mg PO HS [facility] Last Admin: 04/19/18 21:41 Dose: 15 mg Allergies Allergy/AdvReac Type Severity Reaction Status Date / Time penicillin G Allergy Unknown Hives Verified 04/12/18 08:01 Home Medications Medication Instructions Recorded Confirmed Type alendronate 70 mg PO QWEEK 04/12/18 04/12/18 History atenolol 25 mg PO BID 04/12/18 04/12/18 History atorvastatin 40 mg PO DAILY 04/12/18 04/12/18 History calcium carbonate-vitamin D3 1 tab PO DAILY 04/12/18 04/12/18 History [Calcium 600 + D(3)] lisinopril 10 mg PO BID 04/12/18 04/12/18 History multivitamin 1 cap PO QAM 04/12/18 04/12/18 History temazepam 15 mg PO HS 04/12/18 04/12/18 History Physical Exam Vital signs: Vital Signs 04/19/18 09:00 04/19/18 10:00 04/19/18 11:00 Temperature Pulse Rate 70 87 97 H Respiratory Rate 22 23 29 H Blood Pressure 115/58 L 128/61 144/72 H Pulse Oximetry 95 97 100 04/19/18 11:26 04/19/18 12:00 04/19/18 13:00 Temperature Pulse Rate 86 93 H Respiratory Rate 25 H 23 Blood Pressure 147/71 H 134/70 Pulse Oximetry 96 99 100 04/19/18 14:00 04/19/18 15:00 04/19/18 16:00 Temperature 98.4 F Pulse Rate 89 84 83 Respiratory Rate 29 H 24 26 H Blood Pressure 132/72 136/64 146/74 H Pulse Oximetry 100 100 99 04/19/18 17:00 04/19/18 18:00 04/19/18 19:00 Temperature Pulse Rate 97 H 103 H 95 H Respiratory Rate 26 H 26 H 27 H Blood Pressure 174/81 H 150/76 H 151/78 H Pulse Oximetry 100 100 100 04/19/18 20:00 04/19/18 20:27 04/19/18 21:00 Temperature 98.1 F Pulse Rate 103 H 96 H Respiratory Rate 25 H 41 H Blood Pressure 156/75 H Pulse Oximetry 97 94 L 96 04/19/18 21:17 04/19/18 22:00 04/19/18 23:00 Temperature Pulse Rate 94 H 93 H 97 H Respiratory Rate 25 H 7 L 18 Blood Pressure 118/65 132/63 114/56 L Pulse Oximetry 96 95 95 04/20/18 00:00 04/20/18 01:00 04/20/18 02:00 Temperature 97.9 F Pulse Rate 90 83 81 Respiratory Rate 24 19 19 Blood Pressure 102/56 L 103/59 L 94/56 L Pulse Oximetry 94 L 97 96 04/20/18 03:00 04/20/18 04:00 04/20/18 05:00 Temperature 98.1 F Pulse Rate 76 75 76 Respiratory Rate 16 18 14 Blood Pressure 99/55 L 106/59 L 118/56 L Pulse Oximetry 98 98 97 04/20/18 06:50 04/20/18 07:27 Temperature 96.8 F L Pulse Rate 78 Respiratory Rate 16 Blood Pressure 129/87 Pulse Oximetry 98 98 Intake & Output 04/19/18 04/20/18 04/20/18 18:59 06:59 18:59 Intake Total 460 / 460 380 / 380 Output Total 0 / 0 250 / 250 Balance 460 / 460 380 / 380 -250 / -250 Weight 51.8 kg Intake: Oral 460 / 460 380 / 380 Output: Urine 250 / 250 Chest Tube Drainage 0 / 0 #1 Left Upper Anterior 0 / 0 Other: # Voids 3 1 Date of Last Bowel Movement 04/19/18 04/18/18 # Bowel Movements 1 - Constitutional no acute distress, thin, cooperative - Routine HEENT Exam Head: Present: normocephalic, atraumatic Eye: Present: EOMI ENT: Present: mucous membranes dry, nares patent - Routine Neck Exam Present: supple, trachea midline - Routine Respiratory Exam Present: decreased breath sounds Comments: Auscultation there is decreased ventilatory inspiratory effort which is equal and bilateral, lungs are clear to auscultation - Routine Cardiovascular Exam Comments: Heart is regular rate and rhythm with no murmurs - Routine Abdominal Exam Present: soft - Routine Extremities Exam Comments: No lower extremity edema detected bilaterally. - Routine Skin Exam Present: intact, dry - Routine Neurological Exam Present: alert, oriented X3, moving all extremities, normal tone, vision grossly intact, hearing grossly intact, normal speech - Routine Psychiatric Exam Present: normal affect, normal thought process, cooperative, good insight, good judgment Assessment and Plan - Assessment (1) Lung cancer Code(s): C34.90 - Malignant neoplasm of unspecified part of unspecified bronchus or lung Status: Acute - Plan I had extensive discussion with the patient in regards to her condition. I advised her that if the PFTs are within the normal range for concomitant treatment of that and will proceed forward with concomitant chemoradiation therapy. I discussed the merits of radiation therapy as well as a possible techniques. We discussed side effects and complications of treatment. Side effects to the lung to include but limited to: Weakness and fatigue, decreased blood counts, erythema the skin, necrosis of skin, pain of the treated area, bone damage and fracture, costochondritis, lung damage, lung fibrosis, lung pneumonitis, the possibility becoming oxygen dependent, the possibility of becoming pulmonary cripple, heart damage, spinal cord damage, difficulty and pain with swallowing, esophageal strictures which may require dilation, brachial plexus damage. Patient question about continuing to work as well as playing golf and I told her as well as she is able to do it that is fine with me. I advised her to stay out of the sun, and do the golf early in the morning or late in the afternoon. I also advised her that she needs to keep hydrated. After thorough discussion the patient is at everything that was explained. She is to return for simulation treatment planning as an outpatient. From my point of view patient is okay to discharge whenever feasible. She was advised if I could be of any further assistance or to please let me know otherwise we will proceed as above. Dr. Smith thank you very much for the referral of this patient and allowing me to participate in her care. Should you have any further questions or concerns please do not hesitate to contact me. Discharge Planning: Patient can be discharged from my point of view whenever feasible. (1) Lung cancer Qualifiers: Laterality: left Lung location: upper lobe of lung Qualified Code(s): C34.12 - Malignant neoplasm of upper lobe, left bronchus or lung
[2018-04-20] MEDS: Calcium/Vitamin D 250/125 MG Tablet PO SCH (09:32)
[2018-04-20] MEDS: Atenolol 25 MG Tablet PO SCH ×2 (09:33→21:35)
--- NOTE | 2018-04-20 09:59 | XR ---
EXAM DATE: 04/20/2018 9:51 AM EDT AGE/SEX: 73 years / Female INDICATIONS: Evaluate pneumothorax. CLINICAL DATA: This is the patient's subsequent encounter. Patient reports that signs and symptoms h ave been present for 4 - 6 days and indicates a pain score of 0/10. MEDICAL/SURGICAL HISTORY: . Carcinoma, lung. Chronic obstructive pulmonary disease . COMPARISON: [facility] [place], CHEST EXPIRATION ONLY, 04/19/2018. [facility] [place], CHEST 1V SINGLE AP, 04/18/2018. . FINDINGS: Portable AP view of the chest demonstrates a normal-sized cardiac silhouette. Multiple EKG lines over lie the patient. Smallbore pigtail pleural catheter overlies the apex of the left hemithorax. No pneu mothorax is visualized. There is atelectasis at the lung bases secondary to expiratory technique. Bon es and soft tissues demonstrate no acute finding. CONCLUSION: Chest tube remains present and no pneumothorax is visualized. Electronically signed by: Chava Hoang MD 04/20/2018 9:57 AM EDT
--- NOTE | 2018-04-20 10:30 | P.PNONC ---
Subjective Interval history: Patient sitting upright in bed, in no acute distress. Chest tube remains in place. --She reports that she had a long discussion with Dr. Martin silverman [email or web address] and she is confident with her treatment plan. --She denies any N/V/D. Denies shortness of breath or pain. Objective Vital Signs/Intake & Output: Vital Signs 04/19/18 11:00 04/19/18 11:26 04/19/18 12:00 Temperature Pulse Rate 97 H 86 Respiratory Rate 29 H 25 H Blood Pressure 144/72 H 147/71 H Pulse Oximetry 100 96 99 04/19/18 13:00 04/19/18 14:00 04/19/18 15:00 Temperature Pulse Rate 93 H 89 84 Respiratory Rate 23 29 H 24 Blood Pressure 134/70 132/72 136/64 Pulse Oximetry 100 100 100 04/19/18 16:00 04/19/18 17:00 04/19/18 18:00 Temperature 98.4 F Pulse Rate 83 97 H 103 H Respiratory Rate 26 H 26 H 26 H Blood Pressure 146/74 H 174/81 H 150/76 H Pulse Oximetry 99 100 100 04/19/18 19:00 04/19/18 20:00 04/19/18 20:27 Temperature 98.1 F Pulse Rate 95 H 103 H Respiratory Rate 27 H 25 H Blood Pressure 151/78 H 156/75 H Pulse Oximetry 100 97 94 L 04/19/18 21:00 04/19/18 21:17 04/19/18 22:00 Temperature Pulse Rate 96 H 94 H 93 H Respiratory Rate 41 H 25 H 7 L Blood Pressure 118/65 132/63 Pulse Oximetry 96 96 95 04/19/18 23:00 04/20/18 00:00 04/20/18 01:00 Temperature 97.9 F Pulse Rate 97 H 90 83 Respiratory Rate 18 24 19 Blood Pressure 114/56 L 102/56 L 103/59 L Pulse Oximetry 95 94 L 97 04/20/18 02:00 04/20/18 03:00 04/20/18 04:00 Temperature 98.1 F Pulse Rate 81 76 75 Respiratory Rate 19 16 18 Blood Pressure 94/56 L 99/55 L 106/59 L Pulse Oximetry 96 98 98 04/20/18 05:00 04/20/18 06:50 04/20/18 07:27 Temperature 96.8 F L Pulse Rate 76 78 Respiratory Rate 14 16 Blood Pressure 118/56 L 129/87 Pulse Oximetry 97 98 98 04/20/18 08:00 Temperature 98.2 F Pulse Rate 100 H Respiratory Rate 18 Blood Pressure 137/82 Pulse Oximetry 96 Intake & Output 04/19/18 04/20/18 04/20/18 18:59 06:59 18:59 Intake Total 460 / 460 380 / 380 Output Total 0 / 0 250 / 250 Balance 460 / 460 380 / 380 -250 / -250 Weight 51.8 kg Intake: Oral 460 / 460 380 / 380 Output: Urine 250 / 250 Chest Tube Drainage 0 / 0 #1 Left Upper Anterior 0 / 0 Other: # Voids 3 1 Date of Last Bowel Movement 04/19/18 04/18/18 # Bowel Movements 1 Result Diagrams: 04/13/18 09:09 04/13/18 09:09 Imaging Studies: Impressions Chest X-Ray 04/19/18 13:32 CONCLUSION: No pneumothorax Chest X-Ray 04/20/18 09:10 CONCLUSION: Chest tube remains present and no pneumothorax is visualized. Medications: Active Medications Generic Name Dose Route Start Last Admin Trade Name Freq PRN Reason Stop Dose Admin Alprazolam 0.5 mg 04/15/18 16:31 04/19/18 17:17 Xanax PO 0.5 mg Q8H PRN Administration ANXIETY Atenolol 25 mg 04/12/18 21:00 04/20/18 09:33 Tenormin PO 25 mg BID RO Administration Atorvastatin Calcium 40 mg 04/13/18 09:00 04/20/18 09:33 Lipitor PO 40 mg DAILY RO Administration Calcium/Vitamin D 2 tab 04/13/18 09:00 04/20/18 09:32 Oscal With D 250/125 Mg PO 2 tab DAILY RO Administration Clonidine HCl 0.1 mg 04/14/18 15:40 04/15/18 14:10 Catapres PO 0.1 mg Q6H PRN Administration sbp > 170 Multivitamins 1 tab 04/13/18 09:00 04/20/18 09:32 Theragran PO 1 tab DAILY RO Administration Oxycodone/Acetaminophen 1 tab 04/12/18 16:45 04/14/18 21:34 Percocet 5/325 Mg PO 1 tab Q4H PRN Administration PAIN SCALE 6 TO 10 Temazepam 15 mg 04/12/18 21:00 04/19/18 21:41 Restoril PO 15 mg HS RO Administration Objective Remarks: GENERAL: Well-nourished, well-developed patient. SKIN: Warm and dry. HEAD: Normocephalic. EYES: No scleral icterus. No injection or drainage. NECK: Supple, trachea midline. No JVD or lymphadenopathy. LYMPHATIC: No adenopathy. CARDIOVASCULAR: Regular rate and rhythm without murmurs. RESPIRATORY: Posterior breath sounds absent RUL, remaining lobes clear, equal bilaterally. No accessory muscle use. + Left chest tube, bandage dry/intact. GASTROINTESTINAL: Abdomen soft, non-tender, nondistended. EXTREMITIES: No cyanosis, or edema. MUSCULOSKELETAL: Adequate muscle tone. NEUROLOGICAL: No obvious focal deficit. Awake, alert, and oriented x3. PSYCHIATRIC: Appropriate mood and affect; insight and judgment normal. Assessment/Plan - Plan Ms. Valle is a pleasant 73-year-old female, with a history of right lung squamous cell carcinoma, status post right upper lobectomy October 2016. Patient now with newly diagnosed left lung non-small cell carcinoma, status post biopsy and pneumothorax with chest tube in place. Pathology showed a poorly differentiated adenocarcinoma positive for TTF-1consistent with lung primary. PET scan showed no evidence of distant metastasis, however hypermetabolic right mediastinal lymph node.Stage III-A non-small cell lung cancer. Recommendations have been made for concurrent chemotherapy and radiation. The patient is agreeable to this plan. Plan: 1. Non-small cell lung cancer, stage IIIa. Patient will receive concurrent chemotherapy and radiation. 2. Radiation oncology has consulted on the patient and will follow up on outpatient for radiation simulation. 3. Patient to follow-up with Dr. Smith, outpatient arrangements will be made for port placement. - Attending Statement The exam, history, and the medical decision-making described in the above note were completed with the assistance of the mid-level provider. I reviewed and agree with the findings presented. I attest that I had a [id number] encounter with the patient on the same day, and personally performed and documented my assessment and findings in the medical record.She is feeling better after removal of chest tube. No CP/SOB. She has discussed treatment with , she wants to be aggressive with treatment. Her questions were answered. Will arrange for f/u in oncology clinic. Need outpatient port placement.
--- NOTE | 2018-04-20 11:18 | P.PNIM ---
Subjective Interval history: Patient resting in bed anxious about possibly having CT removed today Physical Exam Vital signs: Vital Signs 04/19/18 11:26 04/19/18 12:00 04/19/18 13:00 Temperature Pulse Rate 86 93 H Respiratory Rate 25 H 23 Blood Pressure 147/71 H 134/70 Pulse Oximetry 96 99 100 04/19/18 14:00 04/19/18 15:00 04/19/18 16:00 Temperature 98.4 F Pulse Rate 89 84 83 Respiratory Rate 29 H 24 26 H Blood Pressure 132/72 136/64 146/74 H Pulse Oximetry 100 100 99 04/19/18 17:00 04/19/18 18:00 04/19/18 19:00 Temperature Pulse Rate 97 H 103 H 95 H Respiratory Rate 26 H 26 H 27 H Blood Pressure 174/81 H 150/76 H 151/78 H Pulse Oximetry 100 100 100 04/19/18 20:00 04/19/18 20:27 04/19/18 21:00 Temperature 98.1 F Pulse Rate 103 H 96 H Respiratory Rate 25 H 41 H Blood Pressure 156/75 H Pulse Oximetry 97 94 L 96 04/19/18 21:17 04/19/18 22:00 04/19/18 23:00 Temperature Pulse Rate 94 H 93 H 97 H Respiratory Rate 25 H 7 L 18 Blood Pressure 118/65 132/63 114/56 L Pulse Oximetry 96 95 95 04/20/18 00:00 04/20/18 01:00 04/20/18 02:00 Temperature 97.9 F Pulse Rate 90 83 81 Respiratory Rate 24 19 19 Blood Pressure 102/56 L 103/59 L 94/56 L Pulse Oximetry 94 L 97 96 04/20/18 03:00 04/20/18 04:00 04/20/18 05:00 Temperature 98.1 F Pulse Rate 76 75 76 Respiratory Rate 16 18 14 Blood Pressure 99/55 L 106/59 L 118/56 L Pulse Oximetry 98 98 97 04/20/18 06:50 04/20/18 07:27 04/20/18 08:00 Temperature 96.8 F L 98.2 F Pulse Rate 78 100 H Respiratory Rate 16 18 Blood Pressure 129/87 137/82 Pulse Oximetry 98 98 96 Intake & Output 04/19/18 04/20/18 04/20/18 18:59 06:59 18:59 Intake Total 460 / 460 380 / 380 Output Total 0 / 0 250 / 250 Balance 460 / 460 380 / 380 -250 / -250 Weight 51.8 kg Intake: Oral 460 / 460 380 / 380 Output: Urine 250 / 250 Chest Tube Drainage 0 / 0 #1 Left Upper Anterior 0 / 0 Other: # Voids 3 1 Date of Last Bowel Movement 04/19/18 04/18/18 # Bowel Movements 1 Narrative: GENERAL: This is a 73 year old female A&O CARDIOVASCULAR: Regular rate and rhythm RESPIRATORY: Clear to auscultation. left chest tube in place GASTROINTESTINAL: Abdomen soft, non-tender, nondistended. Normal active bowel sounds MUSCULOSKELETAL: Extremities without clubbing, cyanosis, or edema. NEURO: Alert & Oriented x4 to person, place, time, situation. Moves all ext x4 Results - Labs CBC & Chem 7: 04/13/18 09:09 04/13/18 09:09 - Imaging Impressions Chest X-Ray 04/19/18 13:32 CONCLUSION: No pneumothorax Chest X-Ray 04/20/18 09:10 CONCLUSION: Chest tube remains present and no pneumothorax is visualized. 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 - Pt was being evaluated in our interventional radiology department on 04/12/18 for a biopsy of a mass in the left lung. Pt follows with Dr. Petersen as an outpt - Pt developed a pneumothorax following the biopsy and a chest tube was placed by IR. - Pt is being admitted for monitoring and further management of the CT by IR. - Percocet PRN pain - IS - Supplemental O2 PRN - initial chest tube removed with recurrent ptx on 04/13. replaced on 04/13 but peristent ptx on 04/14. chest tube adjustments made again to 10french on 04/14 by IR with resolution of ptx. now with persistent air leak and a small apical ptx again. Dr. Pina called IR Dr Gonzalez and we performed CT chest on 04/[address] in correct position but small/mod ptx despite suction. discussed with trailhead maintenance worker and CTS Dr Diallo(covering for Dr. Cottrell). Pt being monitored in ICU. no distress. 97% on room air but will place NRB. VATS being considered if no resolution. pathology revealed: LEFT LUNG MASS, CT GUIDED NEEDLE CORE BIOPSY: POORLY DIFFERENTIATED CARCINOMA, CONSISTENT WITH PRIMARY LUNG ADENOCARCINOMA. repeat cxr 04/19 reported no pneumothorax patient also being followed by pulmonology Dr. Petersen and CT surgery Dr. Cottrell Per CVSx notes: Since pt has focal recurrence of the disease in right mediastinal lymph node, and now a left upper lobe mass BX proven. no surgical intervention at this time Consult Oncology for evaluation for adjuvant therapy ( radiation / chemo) Radiation oncology also consulted plan for patient to have outpatient radiation simulation and chemotherapy after DC Discussed with IR plan to remove CT at 1300 today plan to DC tomorrow if patient remains stable HTN - Cont. home meds with parameters Hx of SCC of the right lung - Pt s/p RUL lobectomy in [address] Cottrell - Attending Attestation Patient examined. Assessment and plan formulated with Teresita Still PA-C. I agree with the above.
[2018-04-20] MEDS: ALPRAZolam 0.5 MG Tablet PO PRN ×2 (12:03→21:38)
--- NOTE | 2018-04-20 13:36 | XR ---
EXAM DATE: 04/20/2018 1:25 PM EDT AGE/SEX: 73 years / Female INDICATIONS: Evaluate pneumothorax. CLINICAL DATA: This is the patient's subsequent encounter. Patient reports that signs and symptoms h ave been present for 1 week and indicates a pain score of 0/10. MEDICAL/SURGICAL HISTORY: Carcinoma, lung. Chronic obstructive pulmonary disease. . Chest tube . COMPARISON: [facility] – [place], 04/20/2018. . FINDINGS: Single frontal view of the chest demonstrates a normal-sized cardiac silhouette. Left chest tube sergey ins present at the apex of the left hemithorax. No pneumothorax is identified. Otherwise, there has b een no interval change. CONCLUSION: No pneumothorax. Left chest tube remains present. Electronically signed by: Chava Hoang MD 04/20/2018 1:34 PM EDT
--- NOTE | 2018-04-20 16:00 | XR ---
EXAM DATE: 04/20/2018 3:38 PM EDT AGE/SEX: 73 years / Female INDICATIONS: Evaluate pneumothorax. CLINICAL DATA: This is the patient's subsequent encounter. Patient reports that signs and symptoms h ave been present for 4 - 6 days and indicates a pain score of 0/10. MEDICAL/SURGICAL HISTORY: . Carcinoma, lung. Chronic obstructive pulmonary disease . . COMPARISON: [facility] – [place], CHEST 1V SINGLE AP, 04/20/2018. . FINDINGS: Portable upright expiratory view of the chest demonstrates no definite pneumothorax following left ch est tube removal. Otherwise, there has been no significant interval change. CONCLUSION: No pneumothorax is identified following left chest tube removal. Electronically signed by: Chava Hoang MD 04/20/2018 3:59 PM EDT
--- NOTE | 2018-04-20 17:55 | IR ---
EXAM DATE: 04/20/2018 3:44 PM EDT AGE/SEX: 73 years / Female INDICATIONS: Left Chest tube removal post pneumo-lung bx COMPARISON: [facility], CHEST 1V SINGLE AP, 04/20/2018. . DEVICE(S): Vaseline occlusive dressing gauze+tape PROCEDURE: 1. Chest tube removal. Using aseptic technique the previously placed chest tube was easily removed in one piece and Vaseline gauze and sterile dressing was applied. Chest radiograph is to be obtained. CONCLUSION: 1. Uncomplicated chest tube removal. Electronically signed by: Declan Dwyer MD 04/20/2018 5:53 PM EDT
--- NOTE | 2018-04-20 18:29 | P.PNPL ---
Subjective Interval history: 73 YOWF with ca lung, s/p bx, PTX Weaned to NC Chest tube removed DW Breathing better Physical Exam Vital signs: Vital Signs 04/19/18 19:00 04/19/18 20:00 04/19/18 20:27 Temperature 98.1 F Pulse Rate 95 H 103 H Respiratory Rate 27 H 25 H Blood Pressure 151/78 H 156/75 H Pulse Oximetry 100 97 94 L 04/19/18 21:00 04/19/18 21:17 04/19/18 22:00 Temperature Pulse Rate 96 H 94 H 93 H Respiratory Rate 41 H 25 H 7 L Blood Pressure 118/65 132/63 Pulse Oximetry 96 96 95 04/19/18 23:00 04/20/18 00:00 04/20/18 01:00 Temperature 97.9 F Pulse Rate 97 H 90 83 Respiratory Rate 18 24 19 Blood Pressure 114/56 L 102/56 L 103/59 L Pulse Oximetry 95 94 L 97 04/20/18 02:00 04/20/18 03:00 04/20/18 04:00 Temperature 98.1 F Pulse Rate 81 76 75 Respiratory Rate 19 16 18 Blood Pressure 94/56 L 99/55 L 106/59 L Pulse Oximetry 96 98 98 04/20/18 05:00 04/20/18 06:50 04/20/18 07:27 Temperature 96.8 F L Pulse Rate 76 78 Respiratory Rate 14 16 Blood Pressure 118/56 L 129/87 Pulse Oximetry 97 98 98 04/20/18 08:00 04/20/18 12:00 04/20/18 15:48 Temperature 98.2 F Pulse Rate 80 75 76 Respiratory Rate 18 Blood Pressure 137/82 Pulse Oximetry 96 04/20/18 16:00 Temperature 98 F Pulse Rate 77 Respiratory Rate 20 Blood Pressure 121/73 Pulse Oximetry 96 Intake & Output 04/19/18 04/20/18 04/20/18 18:59 06:59 18:59 Intake Total 460 / 460 380 / 380 Output Total 0 / 0 250 / 250 Balance 460 / 460 380 / 380 -250 / -250 Weight 51.8 kg Intake: Oral 460 / 460 380 / 380 Output: Urine 250 / 250 Chest Tube Drainage 0 / 0 #1 Left Upper Anterior 0 / 0 Other: # Voids 3 1 Date of Last Bowel Movement 04/19/18 04/18/18 # Bowel Movements 1 GENERAL: Elderly WF, NAD SKIN: Warm and dry. HEAD: Normocephalic. EYES: No scleral icterus. No injection or drainage. NECK: Supple, trachea midline. No JVD or lymphadenopathy. CARDIOVASCULAR: Regular rate and rhythm without murmurs, gallops, or rubs. RESPIRATORY: Breath sounds equal bilaterally. No accessory muscle use. GASTROINTESTINAL: Abdomen soft, non-tender, nondistended. MUSCULOSKELETAL: No cyanosis, or edema. BACK: Nontender without obvious deformity. No CVA tenderness. Assessment and Plan - Plan IMPRESSION: 1. Pneumothorax, status post chest tube placement. 2. Chronic obstructive pulmonary disease. 3. Adenocarcinoma of the left lung, status post biopsy. 4. Squamous cell carcinoma of the right lung, status post robotic right upper lobectomy. 5. Anxiety disorder. 6. Hypertension. PLAN: Aerosol nebs CXR in AM [facility] [place] planning chemo radiation and chemo plans underway Stable on RA
[2018-04-21] MEDS: Temazepam 15 MG Capsule PO SCH (00:53)
--- NOTE | 2018-04-21 09:00 | P.DS ---
<Teresita Still W - Last Filed: 04/21/18 08:56> Date of admission: 04/12/18 15:07 Primary care physician: Stephan Wilson MD Attending physician on discharge: Rico Gray Anticipated date of discharge: 04/21/18 Brief History from admission: Mrs. 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 Pt was being evaluated in our interventional radiology department on 04/12/18 for a biopsy of a mass in the left lung. Pt developed a pneumothorax following the biopsy and a chest tube was placed by IR. Pt is being admitted for monitoring and further management of the CT by IR. Past Medical Hx SCC of the right lung Hx of pneumothorax HTN Hyperlipidemia Tobacco use Past Surgical Hx Robotic right upper lobectomy with mediastinal lymph node dissection on 11/02/[address] 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 - Pt was being evaluated in our interventional radiology department on 04/12/18 for a biopsy of a mass in the left lung. Pt follows with Dr. Petersen as an outpt - Pt developed a pneumothorax following the biopsy and a chest tube was placed by IR. - Pt is being admitted for monitoring and further management of the CT by IR. - Percocet PRN pain - IS - Supplemental O2 PRN - initial chest tube removed with recurrent ptx on 04/13. replaced on 04/13 but peristent ptx on 04/14. chest tube adjustments made again to 10french on 04/14 by IR with resolution of ptx. now with persistent air leak and a small apical ptx again. Dr. Pina called IR Dr Gonzalez and we performed CT chest on 04/[address] in correct position but small/mod ptx despite suction. discussed with montessori teacher and CTS Dr Diallo(covering for Dr. Cottrell). Pt being monitored in ICU. no distress. 97% on room air but will place NRB. VATS being considered if no resolution. pathology revealed: LEFT LUNG MASS, CT GUIDED NEEDLE CORE BIOPSY: POORLY DIFFERENTIATED CARCINOMA, CONSISTENT WITH PRIMARY LUNG ADENOCARCINOMA. repeat cxr 04/19 reported no pneumothorax patient also being followed by pulmonology Dr. Petersen and CT surgery Dr. Cottrell Per CVSx notes: Since pt has focal recurrence of the disease in right mediastinal lymph node, and now a left upper lobe mass BX proven. no surgical intervention at this time Consult Oncology Dr. Smith for evaluation for adjuvant therapy ( radiation / chemo) Radiation oncology Dr. Salazar also consulted plan for patient to have outpatient radiation simulation and chemotherapy after DC CT removed 04/20/18 CXR post chest tube removal showed no pneumothorax Patient to follow up with Dr. Salazar and Dr. Smith after DC for further treatment HTN - Cont. home meds with parameters Hx of SCC of the right lung - Pt s/p RUL lobectomy [place] [address] Cottrell - Time Spent with Patient Total time spent providing and/or coordinating discharge services: Greater than 30 minutes - Quality: VTE Deep Vein Thrombosis/Pulmonary Embolism Present on Admission: No Exam Vital signs: Vital Signs 04/20/18 12:00 04/20/18 15:48 04/20/18 16:00 Temperature 98 F Pulse Rate 75 76 77 Respiratory Rate 20 Blood Pressure 121/73 Pulse Oximetry 96 04/20/18 20:00 04/21/18 00:00 04/21/18 04:00 Temperature 97.8 F 97.8 F Pulse Rate 77 71 64 Respiratory Rate 18 16 16 Blood Pressure 136/84 104/66 Pulse Oximetry 96 98 98 04/21/18 04:17 Temperature Pulse Rate 64 Respiratory Rate Blood Pressure Pulse Oximetry Intake & Output 04/20/18 04/21/18 04/21/18 18:59 06:59 18:59 Output Total 250 / 250 250 / 250 Balance -250 / -250 -250 / -250 Weight 51.8 kg 51.8 kg Output: Urine 250 / 250 250 / 250 Other: Date of Last Bowel Movement 04/20/18 Narrative: GENERAL: This is a 73 year old female A&O CARDIOVASCULAR: Regular rate and rhythm RESPIRATORY: Clear to auscultation. left chest tube in place GASTROINTESTINAL: Abdomen soft, non-tender, nondistended. Normal active bowel sounds MUSCULOSKELETAL: Extremities without clubbing, cyanosis, or edema. NEURO: Alert & Oriented x4 to person, place, time, situation. Moves all ext x4 Results Procedures completed during hospitalization: - 04/12/18 for a biopsy of a mass in the left lung by IR - Pt developed a pneumothorax following the biopsy and a chest tube was placed by IR. initial chest tube removed with recurrent ptx on 04/13. replaced on 04/13 but peristent ptx on 04/14. chest tube adjustments made again to 10french on 04/[address] removed 04/20/18 - Impressions ITS Impressions Lung Biopsy CT 04/12/18 07:15 CONCLUSION: 1. Successful CT guided biopsy. Chest Tube Insertion 04/13/18 18:12 CONCLUSION: 1. Uncomplicated left chest tube placement as above. Chest Tube Change 04/14/18 00:00 CONCLUSION: 1. Uncomplicated chest tube exchange, repositioning and upsize as above. Chest CT 04/15/18 11:27 CONCLUSION: 1. Small left-sided chest tube in place and in good position. 2. Continues to be a small to moderate left-sided pneumothorax. Tunnelled Chest Tube Removal 04/20/18 00:00 CONCLUSION: 1. Uncomplicated chest tube removal. Chest X-Ray 04/20/18 15:06 CONCLUSION: No pneumothorax is identified following left chest tube removal. <Rico Gray B - Last Filed: 04/25/18 11:04> Date of admission: 04/12/18 15:07 Primary care physician: Stephan Wilson MD DS: Diagnosis - Discharge Diagnosis (1) Pneumothorax, post biopsy, left Status: Acute DS: Summary Hospital Course: Patient examined. Assessment and plan formulated with Teresita Still PA-C. I agree with the above. - Time Spent with Patient Total time spent providing and/or coordinating discharge services: Results - Impressions ITS Impressions Lung Biopsy CT 04/12/18 07:15 CONCLUSION: 1. Successful CT guided biopsy. Chest Tube Insertion 04/13/18 18:12 CONCLUSION: 1. Uncomplicated left chest tube placement as above. Chest Tube Change 04/14/18 00:00 CONCLUSION: 1. Uncomplicated chest tube exchange, repositioning and upsize as above. Chest CT 04/15/18 11:27 CONCLUSION: 1. Small left-sided chest tube in place and in good position. 2. Continues to be a small to moderate left-sided pneumothorax. Tunnelled Chest Tube Removal 04/20/18 00:00 CONCLUSION: 1. Uncomplicated chest tube removal. Chest X-Ray 04/21/18 00:00 CONCLUSION: No acute findings. Remote right rib fractures. Discharge Plan - Discharge Order Discharge Orders: Discharge Order (Routine); Ordered 04/21/18 Ordered By: Teresita Still - Discharge Details Anticipated Discharge Date: 04/21/18 - Physicians Team Primary Care Provider: Stephan Wilson Attending Provider: Rico Gray Other Providers: Mauricio Garcia MD ; Shanda Diallo MD ; Tobi Petersen MD ; Danish Smith MD ; Sachni Wayne MD ; [facility],[place] ; Reza Dumont Jr, MD ; Santhosh Kendall MD ; Vanessa Cottrell MD - Rxs /Orders / Referrals /Forms Prescriptions: New alprazolam [Xanax] 0.5 mg Tablet 0.5 mg PO Q8H PRN (Reason: Anxiety) Qty: 21 RF: 0 oxycodone-acetaminophen 5-325 mg Tablet 1 tab PO Q4H PRN (Reason: Acute Pain) Qty: 42 RF: 0 Continue alendronate 70 mg Tablet, Effervescent 70 mg PO QWEEK atenolol 25 mg Tablet 25 mg PO BID atorvastatin 40 mg Tablet 40 mg PO DAILY calcium carbonate-vitamin D3 [Calcium 600 + D(3)] 600 mg(1,500mg) -200 unit Tablet 1 tab PO DAILY multivitamin Capsule 1 cap PO QAM temazepam 15 mg Capsule 15 mg PO HS Qty: 7 RF: 0 Discontinued lisinopril 10 mg Tablet 10 mg PO BID Ambulatory Orders / Order Sets / DME: Oxygen Tank (2 liter) (Routine) Location: Determined by Patient Ordered By: Teresita Still Referrals: Sachin Wayne MD [Physician] - See Instructions (follow up as instructed) Danish Smith MD [Physician] - See Instructions (follow up as instructed) Stephan Wilson MD [Primary Care Provider] - See Instructions (follow up in 1 week) - Discharge Instructions Patient Printed Instructions: Oxycodone/Acetaminophen (By mouth), Alprazolam ( By mouth), Traumatic Pneumothorax (DC), Fall Prevention (DC) Additional Instructions: HOME HEALTH CARE HAS BEEN ARRANGED WITH 'S CHOICE, CONTACT #[phone]
--- NOTE | 2018-04-21 09:02 | P.DCO ---
- Diagnosis (1) Lung cancer (2) COPD (chronic obstructive pulmonary disease) - Home Health Nursing Order: Medical education, Signs/symptoms of disease process, Oxygen administration education, Medication education-adverse effect, Nursing assessment with vital signs - Certification I have seen patient Cecily Valle on 04/21/18. My clinical findings support the need for the requested home health care services because: Limited mobility due to disease progression, Deconditioned with increased weakness I certify that my clinical findings support that this patient is homebound because: Hx COPD - exertion dyspnea/weakness (1) Lung cancer Qualifiers: Laterality: left Lung location: upper lobe of lung Qualified Code(s): C34.12 - Malignant neoplasm of upper lobe, left bronchus or lung (2) COPD (chronic obstructive pulmonary disease) Qualifiers: COPD type: emphysema Emphysema type: unspecified Qualified Code(s): J43.9 - Emphysema, unspecified
--- NOTE | 2018-04-21 09:24 | XR ---
EXAM DATE: 04/21/2018 9:17 AM EDT AGE/SEX: 73 years / Female INDICATIONS: Pneumothorax. CLINICAL DATA: This is the patient's subsequent encounter. Patient reports that signs and symptoms h ave been present for 4 - 6 days and indicates a pain score of 0/10. MEDICAL/SURGICAL HISTORY: . Carcinoma, lung. Chronic obstructive pulmonary disease None. [place] [facility] [place]. . FINDINGS: A single AP view of the chest demonstrates the lungs to be symmetrically aerated without evidence of mass, infiltrate or effusion. Remote lower right rib fractures with parenchymal scarring. CONCLUSION: No acute findings. Remote right rib fractures. Electronically signed by: Ishan Valero MD 04/21/2018 9:22 AM EDT
[2018-04-21] MEDS: Atenolol 25 MG Tablet PO SCH (09:37)
[2018-04-21] MEDS: Calcium/Vitamin D 250/125 MG Tablet PO SCH (09:37)
[2018-04-21 09:39] VITALS: RESP 18
[2018-04-21 10:39] VITALS: PULSE 72
--- NOTE | 2018-04-21 11:48 | P.PNONC ---
Subjective Interval history: Afebrile Patient reports she just returned from walking the halls and her O2 sats were 98 % Hoping to go to work on Tuesday States she will call the office next week to inquire about her appointment Objective Vital Signs/Intake & Output: Vital Signs 04/20/18 12:00 04/20/18 15:48 04/20/18 16:00 Temperature 98 F Pulse Rate 75 76 77 Respiratory Rate 20 Blood Pressure 121/73 Pulse Oximetry 96 Pulse Oximetry [Exertion on Room Air] Pulse Oximetry [Resting on Room Air] 04/20/18 20:00 04/21/18 00:00 04/21/18 04:00 Temperature 97.8 F 97.8 F Pulse Rate 77 71 64 Respiratory Rate 18 16 16 Blood Pressure 136/84 104/66 Pulse Oximetry 96 98 98 Pulse Oximetry [Exertion on Room Air] Pulse Oximetry [Resting on Room Air] 04/21/18 04:17 04/21/18 08:00 04/21/18 09:05 Temperature 97.5 F L Pulse Rate 64 72 Respiratory Rate 18 Blood Pressure 127/78 Pulse Oximetry 98 96 Pulse Oximetry [Exertion on Room Air] Pulse Oximetry [Resting on Room Air] 04/21/18 10:50 Temperature Pulse Rate Respiratory Rate Blood Pressure Pulse Oximetry Pulse Oximetry [Exertion on Room Air] 98 Pulse Oximetry [Resting on Room Air] 97 Intake & Output 04/20/18 04/21/18 04/21/18 18:59 06:59 18:59 Output Total 250 / 250 250 / 250 Balance -250 / -250 -250 / -250 Weight 114 lb 3.191 oz 114 lb 3.191 oz Output: Urine 250 / 250 250 / 250 Other: Date of Last Bowel Movement 04/20/18 04/20/18 Result Diagrams: 04/13/18 09:09 04/13/18 09:09 Imaging Studies: Impressions Tunnelled Chest Tube Removal 04/20/18 00:00 CONCLUSION: 1. Uncomplicated chest tube removal. Chest X-Ray 04/20/18 13:00 CONCLUSION: No pneumothorax. Left chest tube remains present. Chest X-Ray 04/20/18 15:06 CONCLUSION: No pneumothorax is identified following left chest tube removal. Chest X-Ray 04/21/18 00:00 CONCLUSION: No acute findings. Remote right rib fractures. Medications: Active Medications Generic Name Dose Route Start Last Admin Trade Name Freq PRN Reason Stop Dose Admin Alprazolam 0.5 mg 04/15/18 16:31 04/20/18 21:38 Xanax PO 0.5 mg Q8H PRN Administration ANXIETY Atenolol 25 mg 04/12/18 21:00 04/21/18 09:37 Tenormin PO 25 mg BID RO Administration Atorvastatin Calcium 40 mg 04/13/18 09:00 04/21/18 09:36 Lipitor PO 40 mg DAILY RO Administration Calcium/Vitamin D 2 tab 04/13/18 09:00 04/21/18 09:37 Oscal With D 250/125 Mg PO 2 tab DAILY RO Administration Clonidine HCl 0.1 mg 04/14/18 15:40 04/15/18 14:10 Catapres PO 0.1 mg Q6H PRN Administration sbp > 170 Multivitamins 1 tab 04/13/18 09:00 04/21/18 09:36 Theragran PO 1 tab DAILY RO Administration Oxycodone/Acetaminophen 1 tab 04/12/18 16:45 04/14/18 21:34 Percocet 5/325 Mg PO 1 tab Q4H PRN Administration PAIN SCALE 6 TO 10 Temazepam 15 mg 04/12/18 21:00 04/21/18 00:53 Restoril PO 15 mg HS RO Administration Objective Remarks: GENERAL: Older female sitting up in bed reading a book in no obvious distress SKIN: Warm and dry. HEAD: Normocephalic. EYES: No scleral icterus. No injection or drainage. NECK: Supple, trachea midline. No JVD or lymphadenopathy. CARDIOVASCULAR: Regular rate and rhythm without murmurs. RESPIRATORY: Clear posteriorly with mild coarse sounds at bases GASTROINTESTINAL: Abdomen soft, non-tender, nondistended. EXTREMITIES: No cyanosis, or edema. MUSCULOSKELETAL: Adequate muscle tone. NEUROLOGICAL: No obvious focal deficit. Awake, alert, and oriented x3. Assessment/Plan - Plan Ms. Valle is a pleasant 73-year-old female, with a history of right lung squamous cell carcinoma, status post right upper lobectomy October 2016. Patient now with newly diagnosed left lung non-small cell carcinoma, status post biopsy and pneumothorax with chest tube in place. Pathology showed a poorly differentiated adenocarcinoma positive for TTF-1consistent with lung primary. PET scan showed no evidence of distant metastasis, however hypermetabolic right mediastinal lymph node. Stage III-A non-small cell lung cancer. Recommendations have been made for concurrent chemotherapy and radiation. The patient is agreeable to this plan. Plan: 1. Patient clear for discharge from oncology standpoint 2. New patient referrals has been contacted and she will follow-up with Dr. Smith and Dr. Salazar outpatient - Attending Statement The exam, history, and the medical decision-making described in the above note were completed with the assistance of the mid-level provider. I reviewed and agree with the findings presented. I attest that I had a [id number] encounter with the patient on the same day, and personally performed and documented my assessment and findings in the medical record.Late entry. Feeling better. No CP/SOB. Told pt to f/u oncology clinic to initiate treatment. Her questions answered.
[2018-04-21 12:51] VITALS: BP 139/84; TEMP 97.7; O2SAT 99
--- NOTE | 2018-04-21 14:19 | P.PNPL ---
Subjective Interval history: 73 YOWF with ca lung, s/p bx, PTX Weaned to NC Chest tube removed Breathing better Weaned to RA Physical Exam Vital signs: Vital Signs 04/20/18 15:48 04/20/18 16:00 04/20/18 20:00 Temperature 98 F 97.8 F Pulse Rate 76 77 77 Respiratory Rate 20 18 Blood Pressure 121/73 136/84 Pulse Oximetry 96 96 Pulse Oximetry [Exertion on Room Air] Pulse Oximetry [Resting on Room Air] 04/21/18 00:00 04/21/18 04:00 04/21/18 04:17 Temperature 97.8 F Pulse Rate 71 64 64 Respiratory Rate 16 16 Blood Pressure 104/66 Pulse Oximetry 98 98 Pulse Oximetry [Exertion on Room Air] Pulse Oximetry [Resting on Room Air] 04/21/18 08:00 04/21/18 09:05 04/21/18 10:50 Temperature 97.5 F L Pulse Rate 72 Respiratory Rate 18 Blood Pressure 127/78 Pulse Oximetry 98 96 Pulse Oximetry [Exertion on Room Air] 98 Pulse Oximetry [Resting on Room Air] 97 04/21/18 12:46 Temperature 97.7 F Pulse Rate 72 Respiratory Rate 18 Blood Pressure 139/84 Pulse Oximetry 99 Pulse Oximetry [Exertion on Room Air] Pulse Oximetry [Resting on Room Air] Intake & Output 04/20/18 04/21/18 04/21/18 18:59 06:59 18:59 Output Total 250 / 250 250 / 250 Balance -250 / -250 -250 / -250 Weight 51.8 kg 51.8 kg Output: Urine 250 / 250 250 / 250 Other: Date of Last Bowel Movement 04/20/18 04/20/18 GENERAL: Thin built WF,NAD SKIN: Warm and dry. HEAD: Normocephalic. EYES: No scleral icterus. No injection or drainage. NECK: Supple, trachea midline. No JVD or lymphadenopathy. CARDIOVASCULAR: Regular rate and rhythm without murmurs, gallops, or rubs. RESPIRATORY: Breath sounds equal bilaterally. No accessory muscle use. GASTROINTESTINAL: Abdomen soft, non-tender, nondistended. MUSCULOSKELETAL: No cyanosis, or edema. BACK: Nontender without obvious deformity. No CVA tenderness. Assessment and Plan - Plan IMPRESSION: 1. Pneumothorax, status post chest tube placement. 2. Chronic obstructive pulmonary disease. 3. Adenocarcinoma of the left lung, status post biopsy. 4. Squamous cell carcinoma of the right lung, status post robotic right upper lobectomy. 5. Anxiety disorder. 6. Hypertension. PLAN: Aerosol nebs planning chemo radiation and chemo plans underway Stable on RA DC plans for home Will FU office 05/16/18 at 12:00 noon
== END 2018-04-21 15:36 | disposition home health service (06) ==
LOC: HRAD 05:58 → HRIP 06:04 → HSDI 15:07 → N04 17:55 → HIMC 04-15 14:05 → HCIN 04-20 06:43
PROVIDERS: ADMIT Hospitalist; ATTEND Hospitalist

== ENCOUNTER 2018-07-15 10:33 | Observation (INO) ==
[2018-07-15] MEDS ORDERED: Sod Chloride 0.9% Inj 1,000 ML IV.SIG ONE (12:05)
--- NOTE | 2018-07-15 12:30 | ED ---
HPI General Chief complaint: Weakness Stated complaint: gen weakness/CA pt Time Seen by Provider: 07/15/18 11:54 Source: patient and family Mode of arrival: ambulatory Limitations: no limitations History of Present Illness HPI Narrative: 73-year-old female that presents to the ED for evaluation of weakness since Tuesday of last week. Per patient she is a chemo patient. She currently is being treated for lung cancer. She had the lung cancer removed on biopsy and then she developed some spots that require chemo and radiation. Per patient she just finished her chemo on the last week of June and was told that her symptoms should improve. Per patient she had her usual side effects from her chemo 2 days after her chemo and for the most part got better but then all of a sudden on Tuesday she started getting bad. Per patient she has not had any chemo or any new medication changes. She does tell me that she was put on steroids by her radiology oncologist after having radiation treatment on the second to last week of June. She states that symptoms started somewhat after down but she does not believe that they are related. She denies any fevers chills or sweats. Per patient has loss of appetite and she feels very weak to her legs. She is able to ambulate but she does feel very very weak per patient. No pain. No urinary or bowel movement issues other than constipation which is normal for her. She does state that she takes medical marijuana to help with hair loss of appetite but she states that this is not helping anymore. No other medical issues. Related Data Home Medications Medication Instructions Recorded Confirmed atenolol 25 mg PO BID 04/12/18 07/15/18 atorvastatin 40 mg PO DAILY 04/12/18 07/15/18 calcium carbonate-vitamin D3 1 tab PO DAILY 04/12/18 07/15/18 [Calcium 600 + D(3)] multivitamin 1 cap PO QAM 04/12/18 07/15/18 lisinopril 10 mg PO BID 05/16/18 07/15/18 Previous Rx's Medication Instructions Recorded alprazolam [Xanax] 0.5 mg PO Q8H PRN #21 tab 04/21/18 oxycodone-acetaminophen 1 tab PO Q4H PRN #42 tab 04/21/18 temazepam 15 mg PO HS #7 tab 04/21/18 Allergies Allergy/AdvReac Type Severity Reaction Status Date / Time penicillin G Allergy Unknown Hives Verified 07/15/18 14:26 Review of Systems ROS: all other systems reviewed are negative PMFSH History History Provided By: Patient and Family Member Medical History Medical History Chemotherapy follow-up examination (Acute) COPD (chronic obstructive pulmonary disease) (Acute) Lung cancer (Acute) Social History Social History Substance History: No History of Abuse Second Hand Smoke Exposure: No Smoking Status: Former smoker Tobacco Type: Cigarettes How Often Do You Have a Drink Containing Alcohol: 2 to 3 times a week Recent Travel in [facility] within the Last 8 Weeks: No Recent Out of Country Travel within the Last 8 Weeks: No Exam Narrative Exam Narrative: GENERAL: Well appearing SKIN: Focused skin assessment warm/dry. HEAD: Atraumatic. Normocephalic. EYES: Pupils equal and round. No scleral icterus. No injection or drainage. ENT: No nasal bleeding or discharge. Mucous membranes pink and moist. Tongue is midline. No uvula deviation. NECK: Trachea midline. No JVD. CARDIOVASCULAR: Regular rate and rhythm. No murmur appreciated. RESPIRATORY: No accessory muscle use. Clear to auscultation. Breath sounds equal bilaterally. GASTROINTESTINAL: Abdomen soft, non-tender, nondistended. Hepatic and splenic margins not palpable. MUSCULOSKELETAL: No obvious deformities. No clubbing. No cyanosis. No edema. Full range of motion of the upper and lower extremities bilaterally. 2+ pulses bilaterally. NEUROLOGICAL: Awake and alert. No obvious cranial nerve deficits. Motor grossly within normal limits. Normal speech. PSYCHIATRIC: Appropriate mood and affect; insight and judgment normal. Course Reevaluation(s) Reevaluation #1: Patient updated and agrees to plan. Consultations Consultation #1: dr campos agrees to admit Initial Documented Vital Signs Temperature 98.4 F 07/15/18 10:35 Pulse Rate 97 H 07/15/18 10:35 Respiratory Rate 18 07/15/18 10:35 Blood Pressure 155/83 H 07/15/18 10:35 Pulse Oximetry 99 07/15/18 10:35 Last Documented Vital Signs Temperature 98.4 F 07/15/18 10:35 Pulse Rate 78 07/15/18 14:00 Respiratory Rate 20 07/15/18 14:00 Blood Pressure 122/59 L 07/15/18 14:00 Pulse Oximetry 99 07/15/18 14:00 Medical Decision Making GÓMEZ Attestation GÓMEZ supervised visit: Yes Attestation: I, Dr. little, have reviewed the advance practice practitioner's documentation and am in agreement, met with the patient face to face, made the diagnosis, and the medical decision making was done by me. *My assessment and Findings: 73-year-old female with generalized weakness and cough with last chemotherapy about 2 weeks ago. Found to have elevated lactic acidosis. Given port was given 1 dose of vancomycin and will be admitted overnight for observation. MDM Narrative Medical decision making narrative: 73-year-old female that presents to the ED for evaluation of weakness. Patient was properly examined and was found to have signs and symptoms of unclear etiology. Labs and imaging were ordered. Labs and imaging showed Medical Screen Exam Complete: Yes Emergency Medical Condition: Yes Differential Diagnosis Differential Diagnosis: Weakness versus ACS versus dehydration versus infection versus UTI versus pneumonia Medical Records Medical records reviewed: Yes I reviewed the patient's medical records. Lab Data Lab results reviewed: Yes I reviewed the patient's lab results. Result diagrams: 07/15/18 12:30 07/15/18 12:30 Lab Results 07/15/18 07/15/18 07/15/18 Range/Units 12:30 12:30 12:50 WBC 5.7 (4.0-11.0) th/mm3 RBC 2.99 L (4.00-5.30) mil/mm3 Hgb 10.6 L (11.6-15.3) gm/dL Hct 29.0 L (35.0-46.0) % MCV 97.0 (80.0-100.0) fL MCH 35.3 H (27.0-34.0) pg MCHC 36.4 H (32.0-36.0) % RDW 17.0 (11.6-17.2) % Plt Count 296 (150-450) th/mm3 MPV 7.4 (7.0-11.0) fL Prelim Diff (Auto) Slide review pending Neut % (Auto) 76.5 H (16.0-70.0) % Lymph % (Auto) 9.1 (9.0-44.0) % [place] % (Auto) 14.0 H (0.0-8.0) % Eos % (Auto) 0.1 (0.0-4.0) % Baso % (Auto) 0.3 (0.0-2.0) % Neut # (Auto) 4.3 (1.8-7.7) th/mm3 Lymph # (Auto) 0.5 L (1.0-4.8) th/mm3 [place] # (Auto) 0.8 (0.0-0.9) th/mm3 Eos # (Auto) 0.0 (0.0-0.4) th/mm3 Baso # (Auto) 0.0 (0.0-0.2) th/mm3 WBC Differential Manual diff final Seg Neuts % (Manual) 78 H (16-70) % Band Neuts % (Manual) 2 (0-6) % Lymphocytes % (Manual) 7 L (9-44) % Monocytes % (Manual) 7 (0-8) % Metamyelocytes % (Man) 1 (0-1) % Myelocytes % (Man) 3 H (0-0) % Promyelocytes % (Man) 2 H (0-0) % Abs Neuts (Manual) 4.9 (1.8-7.7) th/mm3 Differential Comment . Platelet Estimate Normal (Normal) Platelet Morphology Normal (Normal) Sodium 141 (136-145) meq/L Potassium 4.1 (3.5-5.1) meq/L Chloride 104 (98-107) meq/L Carbon Dioxide 25.7 (21.0-32.0) meq/L Anion Gap 11 (5-15) meq/L BUN 19 H (7-18) mg/dL Creatinine 0.80 (0.50-1.00) mg/dL Estimated GFR 70 L (>89) mL/min POC Glucose (68-110) mg/dl Random Glucose 109 H (74-106) mg/dL Lactic Acid (0.4-2.0) mmol/L Calcium 9.1 (8.5-10.1) mg/dL Magnesium 1.9 (1.5-2.5) mg/dL Total Bilirubin 0.2 (0.2-1.0) mg/dL AST 29 (15-37) U/L ALT 32 (10-53) U/L Alkaline Phosphatase 69 (45-117) U/L Total Creatine Kinase 50 (26-192) U/L Troponin I Less than 0.02 L (0.02-0.05) ng/mL Total Protein 7.4 (6.4-8.2) g/dL Albumin 3.5 (3.4-5.0) g/dL TSH 0.966 (0.358-3.740) uIU/mL Urine Color Yellow (Yellw/Straw) Urine Clarity Clear (Clear) Urine pH 6.0 (5.0-8.5) Ur Specific [place] 1.006 (1.002-1.035) Urine Protein Negative (Neg-Trace) mg/dL Urine Glucose (UA) Negative (Negative) mg/dL Urine Ketones Trace H (Negative) mg/dL Urine Occult Blood Negative (Negative) Urine Nitrate Negative (Negative) Urine Bilirubin Negative (Negative) Urine Urobilinogen Less than 2 (Less than 2) mg/dL Ur Leukocyte Esterase Negative (Negative) Urine WBC Less than 1 (0-5) /hpf Ur Squamous Epith Cells 1 (0-5) /hpf Urine Bacteria Rare H (None) /hpf Micro UA Comment Culture not ind Ur Microscopic Review Not Reportable Urine Culture Comments Culture not ind 07/15/18 07/15/18 Range/Units 12:54 12:55 WBC (4.0-11.0) th/mm3 RBC (4.00-5.30) mil/mm3 Hgb (11.6-15.3) gm/dL Hct (35.0-46.0) % MCV (80.0-100.0) fL MCH (27.0-34.0) pg MCHC (32.0-36.0) % RDW (11.6-17.2) % Plt Count (150-450) th/mm3 MPV (7.0-11.0) fL Prelim Diff (Auto) Neut % (Auto) (16.0-70.0) % Lymph % (Auto) (9.0-44.0) % [place] % (Auto) (0.0-8.0) % Eos % (Auto) (0.0-4.0) % Baso % (Auto) (0.0-2.0) % Neut # (Auto) (1.8-7.7) th/mm3 Lymph # (Auto) (1.0-4.8) th/mm3 [place] # (Auto) (0.0-0.9) th/mm3 Eos # (Auto) (0.0-0.4) th/mm3 Baso # (Auto) (0.0-0.2) th/mm3 WBC Differential Seg Neuts % (Manual) (16-70) % Band Neuts % (Manual) (0-6) % Lymphocytes % (Manual) (9-44) % Monocytes % (Manual) (0-8) % Metamyelocytes % (Man) (0-1) % Myelocytes % (Man) (0-0) % Promyelocytes % (Man) (0-0) % Abs Neuts (Manual) (1.8-7.7) th/mm3 Differential Comment Platelet Estimate (Normal) Platelet Morphology (Normal) Sodium (136-145) meq/L Potassium (3.5-5.1) meq/L Chloride (98-107) meq/L Carbon Dioxide (21.0-32.0) meq/L Anion Gap (5-15) meq/L BUN (7-18) mg/dL Creatinine (0.50-1.00) mg/dL Estimated GFR (>89) mL/min POC Glucose 117 H (68-110) mg/dl Random Glucose (74-106) mg/dL Lactic Acid 3.9 H (0.4-2.0) mmol/L Calcium (8.5-10.1) mg/dL Magnesium (1.5-2.5) mg/dL Total Bilirubin (0.2-1.0) mg/dL AST (15-37) U/L ALT (10-53) U/L Alkaline Phosphatase (45-117) U/L Total Creatine Kinase (26-192) U/L Troponin I (0.02-0.05) ng/mL Total Protein (6.4-8.2) g/dL Albumin (3.4-5.0) g/dL TSH (0.358-3.740) uIU/mL Urine Color (Yellw/Straw) Urine Clarity (Clear) Urine pH (5.0-8.5) Ur Specific [place] (1.002-1.035) Urine Protein (Neg-Trace) mg/dL Urine Glucose (UA) (Negative) mg/dL Urine Ketones (Negative) mg/dL Urine Occult Blood (Negative) Urine Nitrate (Negative) Urine Bilirubin (Negative) Urine Urobilinogen (Less than 2) mg/dL Ur Leukocyte Esterase (Negative) Urine WBC (0-5) /hpf Ur Squamous Epith Cells (0-5) /hpf Urine Bacteria (None) /hpf Micro UA Comment Ur Microscopic Review Urine Culture Comments Imaging Data Attestation: I personally reviewed and interpreted this imaging study as follows : Radiologist's impression: Chest X-Ray 07/15/18 12:05 CONCLUSION: No acute cardiopulmonary disease demonstrated. Discharge Plan Discharge Disposition Patient Disposition: 30 Still Patient Discharge Details Diagnosis: Acidosis, lactic Physicians Team ED Provider: Kelsey Little ED Midlevel Provider: Tony Gallardo Primary Care Provider: Stephan Wilson Attending Provider: Rico Gray Discharge Interventions Interventions: Vital Signs Last Done: 07/15/18 14:00 Status ED Status: Admitted Observation Patient
--- NOTE | 2018-07-15 12:56 | XR ---
EXAM DATE: 07/15/2018 12:50 PM EST AGE/SEX: 73 years / Female INDICATIONS: Cough. CLINICAL DATA: This is the patient's initial encounter. Patient reports that signs and symptoms have been present for 3 days and indicates a pain score of 0/10. MEDICAL/SURGICAL HISTORY: . Carcinoma, lung. Chronic obstructive pulmonary disease. None. COMPARISON: [facility] [place] ONLY, 05/16/2018. . FINDINGS: No infiltrate, effusion or pneumothorax demonstrated. Heart size stable, within normal limits. Right subclavian [id number] catheter with tip at the atriocaval junction again noted. There are old, healed right rib fractures. CONCLUSION: No acute cardiopulmonary disease demonstrated. Electronically signed by: Chava Guerra MD 07/15/2018 12:55 PM EST
[2018-07-15 12:57] LABS: Baso % (Auto) 0.3 % (0.0-2.0); Eos % (Auto) 0.1 % (0.0-4.0); Hemoglobin 10.6 gm/dL (11.6-15.3); Lymph # (Auto) 0.5 th/mm3 (1.0-4.8); Lymph % (Auto) 9.1 % (9.0-44.0); Mean Corpuscular Hemoglobin 35.3 pg (27.0-34.0); Mean Platelet Volume 7.4 fL (7.0-11.0); Mono # (Auto) 0.8 th/mm3 (0.0-0.9); Neut # (Auto) 4.3 th/mm3 (1.8-7.7); Neut % (Auto) 76.5 % (16.0-70.0); Platelet Count 296 th/mm3 (150-450); Red Blood Count 2.99 mil/mm3 (4.00-5.30); White Blood Count 5.7 th/mm3 (4.0-11.0)
[2018-07-15 12:58] LABS: Mean Corpuscular HGB Conc 36.4 % (32.0-36.0)
[2018-07-15 13:18] LABS: Bacteria,Urine Rare /hpf; Bilirubin,Urine Negative (Negative); Clarity,Urine Clear (Clear); Color,Urine Yellow (Yellw/Straw); Glucose,Urine (UA) Negative (Negative); Leukocyte Esterase,Urine Negative (Negative); Nitrite,Urine Negative (Negative); Specific Gravity,Urine 1.006 (1.002-1.035); Squamous Epithelial Cell,Urine 1 /hpf (0-5)
[2018-07-15 13:18] LABS: Alanine Aminotransferase 32 U/L (10-53); Albumin 3.5 g/dL (3.4-5.0); Anion Gap 11 meq/L (5-15); Aspartate Aminotransferase 29 U/L (15-37); Blood Urea Nitrogen 19 mg/dL (7-18); Calcium 9.1 mg/dL (8.5-10.1); Carbon Dioxide 25.7 meq/L (21.0-32.0); Chloride 104 meq/L (98-107); Glomerular Filtration Rate 70 mL/min (>89); Glucose,Random 109 mg/dL (74-106); Magnesium 1.9 mg/dL (1.5-2.5); Potassium 4.1 meq/L (3.5-5.1); Sodium 141 meq/L (136-145)
[2018-07-15 13:26] LABS: Lymphocytes 7 % (9-44); Metamyelocytes 1 % (0-1); Monocytes 7 % (0-8); Myelocytes 3 % (0-0); Platelet Estimate Normal (Normal); Platelet Morphology Normal (Normal); Promyelocyte 2 % (0-0)
[2018-07-15 13:28] LABS: Alkaline Phosphatase 69 U/L (45-117); Thyroid Stimulating Hormone 0.966 uIU/mL (0.358-3.740); Total Protein 7.4 g/dL (6.4-8.2)
[2018-07-15 13:34] LABS: Creatine Kinase 50 U/L (26-192)
--- NOTE | 2018-07-15 14:15 | ECG ---
Date Performed: 07/15/2018 Time Performed: 12:39:47 PTAGE: 73 years EKG: Sinus rhythm NORMAL ECG No significant change from prior electrocardiogram. PREVIOUS TRACING : 05/15/2015 00.17 DOCTOR: Shlomo Collins Interpretating Date/Time 07/15/2018 14:14:55
[2018-07-15] MEDS ORDERED: Vancomycin Inj 1,000 MG in Sodium Chlor 0.9% Inj 250 ML IV.SIG ONE (15:11)
[2018-07-15] MEDS ORDERED: Sod Chloride 0.9% Inj 1,000 ML IV.SIG SCH (15:15)
[2018-07-15] MEDS ORDERED: Acetaminophen 325 MG Tablet PO PRN (15:24)
[2018-07-15] MEDS ORDERED: Enoxaparin Inj 30 MG/0.3 ML Syringe SQ SCH (15:30)
--- NOTE | 2018-07-15 15:30 | P.HPIM ---
History of Present Illness Primary Care Physician: Stephan Wilson MD History of Present Illness: This is is 73-year-old female patient with past medical history which includes arthritis, COPD, heart murmur, hyperlipidemia, hypertension, kidney stones 1994, right lung squamous cell carcinoma status post radiation which was completed 06/29/2018 and chemotherapy which was completed 06/27/2018. Presents to the ED for evaluation of weakness since Tuesday of last week. Patient reports that she had her usual side effects from her chemo 2 days after her chemo and for the most part got better but then all of a sudden on Tuesday she started feeling worse. Patient reports loss of appetite and generalized weakness. Patient states that she is able to ambulate but she does feel very weak. She does state that she takes medical marijuana to help with loss of appetite but she states that this is not helping anymore. Patient denies dysuria, cough, fevers, chills, diaphoresis, shortness of breath or chest pain. PMH: arthritis, COPD, heart murmur, hyperlipidemia, hypertension, kidney stones 1994 , right lung squamous cell carcinoma status post radiation which was completed 06/29/2018 and chemotherapy which was completed 06/27/2018 PSxH: Left lung biopsy, upper lobectomy 04/06/2017, cataract surgery in 2009, colonoscopy 2015 and tonsillectomy FMH: Mother at age 71 maternal grandfather at age 71 Social history: Occasional EtOH use Quit smoking 2 years ago prior to that smoked a pack and half a day for 52 years Medications and Allergies Allergies Allergy/AdvReac Type Severity Reaction Status Date / Time penicillin G Allergy Unknown Hives Verified 07/15/18 14:26 Home Medications Medication Instructions Recorded Confirmed Type atenolol 25 mg PO BID 04/12/18 07/15/18 History atorvastatin 40 mg PO DAILY 04/12/18 07/15/18 History calcium carbonate-vitamin D3 1 tab PO DAILY 04/12/18 07/15/18 History [Calcium 600 + D(3)] multivitamin 1 cap PO QAM 04/12/18 07/15/18 History lisinopril 10 mg PO BID 05/16/18 07/15/18 History Active Medications: Active Medications Sodium Chloride (Ns Inj) 1,000 mls @ 1,000 mls/hr IV.SIG BOLUS RO Stop: 07/15/18 16:14 Vancomycin HCl 1,000 mg/ (Sodium Chloride) 250 mls @ 250 mls/hr IV.SIG ONCE ONE Stop: 07/15/18 16:10 Physical Exam Vital signs: Last Vital Signs Temp 98.4 F 07/15/18 10:35 Pulse 78 07/15/18 14:00 Resp 20 07/15/18 14:00 BP 122/59 L 07/15/18 14:00 Pulse Ox 99 07/15/18 14:00 Narrative: GENERAL: This is a thin, well-developed patient, in no apparent distress. With dry oral mucousa CARDIOVASCULAR: Regular rate and rhythm RESPIRATORY: Clear to auscultation. Breath sounds equal bilaterally. GASTROINTESTINAL: Abdomen soft, non-tender, nondistended. Normal active bowel sounds MUSCULOSKELETAL: Extremities without clubbing, cyanosis, or edema. NEURO: Alert & Oriented. Moves all ext x4 Results Labs CBC & Chem 7: 07/15/18 12:30 07/15/18 12:30 Caprini VTE Risk Assessment Caprini VTE Risk Assessment: Moderate/High Risk (score >= 2) Caprini Risk Assessment Model: Point Value = 1 Point Value = 2 Point Value = 3 Point Value = 5 Age 41-60 Minor surgery BMI > 25 kg/m2 Swollen legs Varicose veins or History of unexplained or recurrent spontaneous Oral contraceptives or hormone replacement Sepsis (< 1 month) Serious lung disease, including pneumonia (< 1 month) Abnormal pulmonary function Acute myocardial infarction Congestive heart failure (< 1 month) History of inflammatory bowel disease Medical patient at bed rest Age 61-74 Arthroscopic surgery Major open surgery (> 45 min) Laparoscopic surgery (> 45 min) Malignancy Confined to bed (> 72 hours) Immobilizing plaster cast Central venous access Age >= 75 History of VTE Family history of VTE Factor V Leiden Prothrombin [id number] Lupus anticoagulant Anticardiolipin antibodies Elevated serum homocysteine Heparin-induced thrombocytopenia Other congenital or acquired thrombophilia Stroke (< 1 month) Elective arthroplasty Hip, pelvis, or leg fracture Acute spinal cord injury (< 1 month) Prophylaxis Regimen: Total Risk Factor Score Risk Level Prophylaxis Regimen 0-1 Low Early ambulation 2 Moderate Order ONE of the following: *Sequential Compression Device (SCD) *Heparin 5000 units SQ BID 3-4 Higher Order ONE of the following medications: *Heparin 5000 units SQ TID *Enoxaparin/Lovenox 40 mg SQ daily (WT < 150 kg, CrCl > 30 mL/min) *Enoxaparin/Lovenox 30 mg SQ daily (WT < 150 kg, CrCl > 10-29 mL/min) *Enoxaparin/Lovenox 30 mg SQ BID (WT < 150 kg, CrCl > 30 mL/min) AND/OR *Sequential Compression Device (SCD) 5 or more Highest Order ONE of the following medications: *Heparin 5000 units SQ TID (Preferred with Epidurals) *Enoxaparin/Lovenox 40 mg SQ daily (WT < 150 kg, CrCl > 30 mL/min) *Enoxaparin/Lovenox 30 mg SQ daily (WT < 150 kg, CrCl > 10-29 mL/min) *Enoxaparin/Lovenox 30 mg SQ BID (WT < 150 kg, CrCl > 30 mL/min) AND *Sequential Compression Device (SCD) Assessment and Plan Plan This is is 73-year-old female patient with past medical history which includes arthritis, COPD, heart murmur, hyperlipidemia, hypertension, kidney stones 1994 , right lung squamous cell carcinoma status post radiation which was completed 06/29/2018 and chemotherapy which was completed 06/27/2018. Presents to the ED for evaluation of weakness since Tuesday of last week. Patient reports loss of appetite and generalized weakness. Patient denies dysuria, cough, fevers, chills, diaphoresis, shortness of breath or chest pain. Lactic acidosis likely secondary to dehydration right lung squamous cell carcinoma status post radiation which was completed and chemotherapy which was completed 06/27/2018 IVF supportive care recheck LA CBC and BMP in AM Decreased appetite Remeron 30 mg PO QHS Hyperlipidemia Continue patient's home atorvastatin 40 mg daily Hypertension Continue patient's home lisinopril 10 mg p.o. twice daily and atenolol 25 mg p.o. twice daily Consult PT DVT prophylaxis with Lovenox
[2018-07-15] MEDS ORDERED: ALPRAZolam 0.5 MG Tablet PO PRN (15:38)
[2018-07-15] MEDS ORDERED: Temazepam 15 MG Capsule PO PRN ×2 (15:42→17:21)
[2018-07-15 15:56] VITALS: RESP 18
[2018-07-15] MEDS: KCL 20 mEq/NACL 0.45% Inj 1,000 ML IV.CONT SCH (17:44)
[2018-07-15] MEDS ORDERED: Mirtazapine 15 MG Tablet PO SCH (21:00)
[2018-07-15] MEDS: Senna/Docusate Sodium 8.6/50 MG Tablet PO SCH (21:25)
[2018-07-15] MEDS: Lisinopril 10 MG Tablet PO SCH (21:26)
[2018-07-15] MEDS: Atenolol 25 MG Tablet PO SCH (21:27)
[2018-07-16] MEDS: KCL 20 mEq/NACL 0.45% Inj 1,000 ML IV.CONT SCH (06:14)
[2018-07-16 07:02] LABS: Baso % (Auto) 0.4 % (0.0-2.0); Eos % (Auto) 0.4 % (0.0-4.0); Hematocrit 23.6 % (35.0-46.0); Hemoglobin 8.5 gm/dL (11.6-15.3); Lymph # (Auto) 0.6 th/mm3 (1.0-4.8); Lymph % (Auto) 13.3 % (9.0-44.0); Mean Corpuscular Hemoglobin 34.4 pg (27.0-34.0); Mean Corpuscular Volume 95.8 fL (80.0-100.0); Mono # (Auto) 0.8 th/mm3 (0.0-0.9); Mono % (Auto) 18.1 % (0.0-8.0); Neut # (Auto) 2.8 th/mm3 (1.8-7.7); Neut % (Auto) 67.8 % (16.0-70.0); Platelet Count 267 th/mm3 (150-450); Red Blood Count 2.46 mil/mm3 (4.00-5.30); White Blood Count 4.2 th/mm3 (4.0-11.0)
[2018-07-16 07:26] LABS: Calcium 7.9 mg/dL (8.5-10.1); Carbon Dioxide 24.7 meq/L (21.0-32.0); Potassium 3.9 meq/L (3.5-5.1)
[2018-07-16 07:59] LABS: Eosinophils 1 % (0-4); Lymphocytes 12 % (9-44); Metamyelocytes 1 % (0-1); Monocytes 11 % (0-8); Platelet Estimate Normal (Normal); Platelet Morphology Normal (Normal); Tallied Nucleated RBC 1 (0-0)
[2018-07-16 08:00] LABS: Ovalocytes 1+
[2018-07-16] MEDS ORDERED: Calcium/Vitamin D 250/125 MG Tablet PO SCH (09:00)
[2018-07-16] MEDS ORDERED: CALCIUM CARBONATE VITAMIN D3 PO SCH (09:00)
[2018-07-16] MEDS: Atenolol 25 MG Tablet PO SCH (09:59)
[2018-07-16] MEDS: Lisinopril 10 MG Tablet PO SCH (09:59)
[2018-07-16] MEDS: Senna/Docusate Sodium 8.6/50 MG Tablet PO SCH (10:14)
[2018-07-16] MEDS ORDERED: Acetaminophen 325 MG Tablet PO PRN (14:09)
[2018-07-16 14:38] LABS: Baso % (Auto) 0.4 % (0.0-2.0); Eos % (Auto) 0.3 % (0.0-4.0); Hematocrit 25.9 % (35.0-46.0); Hemoglobin 8.7 gm/dL (11.6-15.3); Lymph # (Auto) 0.7 th/mm3 (1.0-4.8); Lymph % (Auto) 14.3 % (9.0-44.0); Mean Corpuscular HGB Conc 33.5 % (32.0-36.0); Mean Corpuscular Hemoglobin 32.7 pg (27.0-34.0); Mean Corpuscular Volume 97.5 fL (80.0-100.0); Mean Platelet Volume 7.5 fL (7.0-11.0); Mono # (Auto) 0.9 th/mm3 (0.0-0.9); Mono % (Auto) 17.5 % (0.0-8.0); Neut # (Auto) 3.3 th/mm3 (1.8-7.7); Neut % (Auto) 67.5 % (16.0-70.0); Platelet Count 283 th/mm3 (150-450); Red Blood Count 2.65 mil/mm3 (4.00-5.30); Red Cell Distribution Width 17.2 % (11.6-17.2)
--- NOTE | 2018-07-16 14:47 | P.DS ---
DS: Providers Date of admission: 07/15/18 15:51 Primary care physician: Stephan Wilson MD DS: Summary This is is 73-year-old female patient with past medical history which includes arthritis, COPD, heart murmur, hyperlipidemia, hypertension, kidney stones 1994 , right lung squamous cell carcinoma status post radiation which was completed 06/29/2018 and chemotherapy which was completed 06/27/2018. Presents to the ED for evaluation of weakness since Tuesday of last week. Patient reports loss of appetite and generalized weakness. Patient denies dysuria, cough, fevers, chills, diaphoresis, shortness of breath or chest pain. Lactic acidosis likely secondary to dehydration right lung squamous cell carcinoma status post radiation which was completed and chemotherapy which was completed 06/27/2018 IVF supportive care recheck LA after fluids 0.8 patient reports feeling better today agrees with DC home Anemia hgb 10.6 on admission -> 07/16 8.5 recheck 8.7 stable Recheck outpatient in 1 week with results to PCP Decreased appetite Remeron 30 mg PO QHS Hyperlipidemia Continue patient's home atorvastatin 40 mg daily Hypertension Continue patient's home lisinopril 10 mg p.o. twice daily and atenolol 25 mg p.o. twice daily Consult PT, recommending DC home with no PT. Patient was able to independently ambulate 100 feet DVT prophylaxis with Lovenox Time Spent with Patient Total time spent providing and/or coordinating discharge services: Quality: VTE Deep Vein Thrombosis/Pulmonary Embolism Present on Admission: Yes Exam Narrative Exam Narrative: GENERAL: This is a thin, well-developed patient, in no apparent distress. With dry oral mucousa CARDIOVASCULAR: Regular rate and rhythm RESPIRATORY: Clear to auscultation. Breath sounds equal bilaterally. GASTROINTESTINAL: Abdomen soft, non-tender, nondistended. Normal active bowel sounds MUSCULOSKELETAL: Extremities without clubbing, cyanosis, or edema. NEURO: Alert & Oriented. Moves all ext x4 DS: Data Labs on day of discharge: Labs from last 24 hours 07/16/18 07/16/18 07/16/18 14:25 06:13 06:13 WBC 5.0 4.2 RBC 2.65 L 2.46 L Hgb 8.7 L 8.5 L D Hct 25.9 L 23.6 L MCV 97.5 95.8 MCH 32.7 34.4 H MCHC 33.5 36.0 RDW 17.2 17.0 Plt Count 283 267 MPV 7.5 8.0 Prelim Diff (Auto) Slide review pending Slide review pending Neut % (Auto) 67.5 67.8 Lymph % (Auto) 14.3 13.3 Beadle % (Auto) 17.5 H 18.1 H Eos % (Auto) 0.3 0.4 Baso % (Auto) 0.4 0.4 Neut # (Auto) 3.3 2.8 Lymph # (Auto) 0.7 L 0.6 L Beadle # (Auto) 0.9 0.8 Eos # (Auto) 0.0 0.0 Baso # (Auto) 0.0 0.0 WBC Differential Pending Manual diff final Seg Neuts % (Manual) 71 H Band Neuts % (Manual) 4 Lymphocytes % (Manual) 12 Monocytes % (Manual) 11 H Eosinophils % (Manual) 1 Metamyelocytes % (Man) 1 Abs Neuts (Manual) 3.2 Nucleated RBCs/100 WBC 1 H Differential Comment . . Platelet Estimate Normal Platelet Morphology Normal Ovalocytes 1+ H Sodium 143 Potassium 3.9 Chloride 110 H Carbon Dioxide 24.7 Anion Gap 8 BUN 11 Creatinine 0.67 Estimated GFR 86 L Random Glucose 81 Lactic Acid Calcium 7.9 L D 07/15/18 19:42 WBC RBC Hgb Hct MCV MCH MCHC RDW Plt Count MPV Prelim Diff (Auto) Neut % (Auto) Lymph % (Auto) Beadle % (Auto) Eos % (Auto) Baso % (Auto) Neut # (Auto) Lymph # (Auto) Beadle # (Auto) Eos # (Auto) Baso # (Auto) WBC Differential Seg Neuts % (Manual) Band Neuts % (Manual) Lymphocytes % (Manual) Monocytes % (Manual) Eosinophils % (Manual) Metamyelocytes % (Man) Abs Neuts (Manual) Nucleated RBCs/100 WBC Differential Comment Platelet Estimate Platelet Morphology Ovalocytes Sodium Potassium Chloride Carbon Dioxide Anion Gap BUN Creatinine Estimated GFR Random Glucose Lactic Acid 0.8 Calcium Preliminary micro results at discharge 07/15/18 12:25 Aerobic Blood Culture - Preliminary Blood - Peripheral No growth in 1 day Anaerobic Blood Culture - Preliminary No growth in 1 day 07/15/18 12:35 Aerobic Blood Culture - Preliminary Blood - Peripheral No growth in 1 day Anaerobic Blood Culture - Preliminary No growth in 1 day Impressions Chest X-Ray 07/15/18 12:05 CONCLUSION: No acute cardiopulmonary disease demonstrated. Discharge Plan Discharge Disposition Patient Disposition: 01 Discharge Home Discharge Condition Condition: Stable Discharge Order Discharge Orders: Discharge Order (Routine); Ordered 07/16/18 Ordered By: Teresita Still Discharge Details Anticipated Discharge Date: 07/16/18 Physicians Team ED Provider: Kelsey Littel ED Midlevel Provider: Tony Gallardo Primary Care Provider: Stephan Wilson Attending Provider: Rico Gray Rxs /Orders / Referrals /Forms Prescriptions: New mirtazapine 15 mg Tablet 30 mg PO HS 30 Days Qty: 60 RF: 0 Continue lisinopril 10 mg Tablet 10 mg PO BID RF: 0 atenolol 25 mg Tablet 25 mg PO BID RF: 0 atorvastatin 40 mg Tablet 40 mg PO DAILY RF: 0 calcium carbonate-vitamin D3 [Calcium 600 + D(3)] 600 mg(1,500mg) -200 unit Tablet 1 tab PO DAILY RF: 0 multivitamin Capsule 1 cap PO QAM RF: 0 oxycodone-acetaminophen 5-325 mg Tablet 1 tab PO Q4H PRN (Reason: Acute Pain) Qty: 42 RF: 0 alprazolam [Xanax] 0.5 mg Tablet 0.5 mg PO Q8H PRN (Reason: Anxiety) Qty: 21 RF: 0 temazepam 15 mg Capsule 15 mg PO HS Qty: 7 RF: 0 Ambulatory Orders / Order Sets / DME: Complete Blood Count with Diff (Routine) Timeframe: 1 Week Location: Determined by Patient Ordered By: Teresita Still Referrals: Stephan Wilson MD [Primary Care Provider] - See Instructions (follow up in 1 week) Discharge Instructions Patient Printed Instructions: Mirtazapine (By mouth), Dehydration (DC), Fall Prevention (DC), Lactic Acidosis (GEN) Status ED Status: Left Department
[2018-07-16 17:09] VITALS: BP 120/56; PULSE 70; TEMP 98.6; O2SAT 97
== END 2018-07-16 17:49 | disposition home or self-care (01) ==
LOC: NEDA 10:33 → NEPC 10:33 → N06 16:45
PROVIDERS: ADMIT Hospitalist; ATTEND Hospitalist